=== PATIENT | male | born 1965 | race Caucasian/White ===

== ENCOUNTER → 2017-12-25 15:09 | Outpatient (CLI) | payer OTHER, SELFPAY ==
[2017-12-25 17:36] LABS: Absolute Lymphocyte Count 1.68 X10^3/ul (0.83-4.51); Absolute Neutrophil Count 0.5 X10^3/uL (2.0-7.7); Basophil# 0.02 X10^3/uL; Basophil% 0.7 % (0-1); Eosinophil# 0.02 X10^3/uL; Eosinophils% 0.7 % (0-5); Hematocrit 40.1 % (40-54); Hemoglobin 13.2 g/dl (13.0-16.5); Lymphocyte # 1.68 X10^3/ul (4.0); Lymphocyte % 57.5 % (19-41); Mean Corp Hgb Conc 32.9 g/gl (32-36); Mean Corpuscular Volume 88.1 fL (80-94); Mean Platelet Vol. 8.7 fl (6.2-12.0); Monocyte# 0.71 X10^3/uL; Monocyte% 24.3 % (0-10); Neutrophil # 0.49 X10^3/uL (2.7-7.7); Neutrophil % 16.8 % (47-70); Platelet Count 199 K/mm3 (150-450); RBC Distribution Width CV 14.5 % (11.6-14.6); RBC Distribution Width SD 46.7 fl (35.1-43.9); Red Blood Count 4.55 M/mm3 (4.6-6.2); White Blood Count 2.9 K/mm3 (4.4-11.0)
[2017-12-25 17:46] LABS: ALB/GLOB Ratio 0.7 RATIO (0.9-2.4); AST(SGOT) 20 U/L (15-37); Alanine Aminotransfer ALT/SGPT 26 U/L (16-61); Albumin, Serum 3.7 g/dL (3.2-5.0); Alkaline Phosphatase 58 U/L (45-117); Anion Gap 11 (5-15); BUN 21 mg/dL (7-18); Calcium,Total 8.7 mg/dL (8.5-10.1); Chloride 104 mmol/L (98-107); EST Glomerular Filtration Rate 84 mL/min (>60); Est Glom Filt Rate - Afr Amer 102 mL/min (>60); Glucose 95 mg/dL (74-106); Protein, Total 8.7 g/dL (6.4-8.2); Sodium Level 141 mmol/L (136-145)
[2017-12-25 17:47] LABS: Differential Indicated SCAN CRITERIA MET; POSITIVE COUNT NO; POSITIVE DIFFERENTIAL YES; POSITIVE MORPHOLOGY NO
[2017-12-25 18:20] LABS: Red Cell Morphology NORM C+C NORMAL (NORM C&C)
== END ==
PROVIDERS: Visit Provider Family Medicine
DX: Z01.818 Encounter for other preprocedural examination (principal)
CPT/HCPCS: 36415; 80053; 85025

== ENCOUNTER 2018-01-04 05:48 | Day surgery (SDC) | payer OTHER, SELFPAY ==
[2018-01-04] VITALS (7 sets, daily range): BP systolic 113–133; BP diastolic 81–89; PULSE 72–79; RESP 16–18; TEMP 36.7–37.1; O2SAT 97–100; BMI 23.8
[2018-01-04] MEDS: Cefazolin 2 GM in 0.9% Normal Saline 100 ML IV (07:29)
--- NOTE | 2018-01-04 07:30 | RAD_ITS ---
STUDY: X-RAY - RIGHT FOOT CLINICAL: Male, 52 years old. Arthroplasty with correction of the fifth and merchant toe. TECHNIQUE: 3 cone-down view(s) of the foot were obtained intraoperatively.. COMPARISON: None. FINDINGS: The patient is status post resection of the distal portion of the proximal phalanx and middle phalanx of the fifth toe. Postoperative soft tissue changes. RAD/Foot 2 Views IMPRESSION: Resection of the distal portion of the proximal phalanx as well as minimal findings of the fifth toe. Postoperative soft tissue changes. Electronically Signed: Vasyl Chappell MD at 9:58 EDT Tel [phone], Service support ,
--- NOTE | 2018-01-04 07:30 | BON_PTH ---
PATIENT: MARVA LUU [place] [facility] [facility] [place][id number] AGE/SX: 52/M ROOM: RE01/04/[address]: Dr. Murphy Gorman DPM : 1965 BED: DIS: 01/04/2018 SPEC #: [id number] RECD: 01/04/18 08:16 STATUS: LAVELL JACKSON #: [id number] MARTIN: 01/04/18 07:[address]: Murphy Gorman DEPT: SURGICAL PATHOLOGY RECD BY: Alon Sheehan ENTERED: 01/04/18 10:50 SP TYPE: Bone OTHR DR: No Primary Care Phys Tissues: Bone of foot, NOS Procedures: Decalcification bone/plaque Surgery Specimen Level III HEADER OPERATION: Right foot arthroplasty, correction fifth hammertoe and excision PRE-OP DIAGNOSIS: Right fifth hammertoe, rheumatoid arthritis TISSUE SUBMITTED: Rheumatoid nodule and bone - right fifth toe MICROSCOPIC DIAGNOSIS Rheumatoid nodule and bone, right fifth toe: A piece of fibroconnective tissue with changes consistent with rheumatoid nodule and reactive changes. Pieces of bone with reactive changes, clinically hammertoe. NOHEMI:bebeto 01/09/18 MICROSCOPIC DESCRIPTION Slides are reviewed. GROSS DESCRIPTION Received in fixative is one container labeled with the patient's name and designated rheumatoid nodule and bone right fifth toe. The specimen consists of a piece of phillips soft tissue measuring 1.2 x 0.5 x 0.5 cm. This piece is bisected. Also present in the container are two pieces of bone measuring in aggregate 1.3 x 1 x 0.5 cm. The entire specimen is submitted in two cassettes as follows: 1 - soft tissue, 2 - bone after decalcification. / NOHEMI:bebeto 01/04/18 TC:5 [facility]: [id number], [id number]
[2018-01-04] MEDS: Bupivacaine Mpf 0.5% 30 ML VIAL (07:45)
--- NOTE | 2018-01-04 08:21 | DCINST_ITS ---
Discharge Diet: Light diet - advance as tolerated Discharge Activity: May Not Drive Weight Bearing Status: Partial weight bearing - Limit weightbearing right foot Keep extremity elevated above heart level: Right Leg - Keep right foot elevated as much as possible Call your doctor if your incision/area has: Continuous Slow Oozing, Increased Redness, Foul Smelling Discharge Call your doctor if you observe: Fever of 101 or Higher, Coldness, Increased Pain, Shortness of breath, Chest pain, Increased palpitations (irregular heartbeat), Calf discomfort, Uncontrolled pain Cleanse incision/area with: Do not get Incision Wet, Keep Dressing Clean & Dry Allergies/Adverse Reactions: Allergies No Known Allergies Allergy (Verified 12/28/17 14:30) Medications to take at Discharge Hydrocodone/Acetaminophen [Vicodin 5-300 mg Tablet] 1 tab PO Q6H PRN PRN 5 Days #20 tab 01/04/18 The following prescriptions were given: Hydrocodone/Acetaminophen [Vicodin 5-300 mg Tablet] 1 tab PO Q6H PRN PRN 5 Days #20 tab PRN Reason: Pain Primary Care Physician: Care Physician,No Primary [Primary Care Provider] - Test Results: Test results from this visit will be discussed in further detail at your follow- up appointment, if applicable. Please Follow Up With: Murphy Gorman DPM When: within 1 week, sooner if needed
--- NOTE | 2018-01-04 08:26 | OP.PCM_ITS ---
Report of Operation Date of Procedure: 01/04/18 Pre-Operative Diagnosis: Right 5th digit hammer toe and rheumatoid nodule Post-Operative Diagnosis: Same Surgery/Procedure Performed:: Arthroplasty right 5th toe with removal of rheumatoid nodule Description of Surgical Findings:: contracted right 5th toe with dorsal rheumatoid nodule steam cleaner: yes - Dr. Ifeoma Walker, and Dr. Ady Farrell Type of Anesthesia:: Local MAC Specimen's removed: Bone and removed rheumatoid nodule from the right 5th toe sent to pathology Estimated Blood Loss (mL): <1mL Description of Procedure: Indications: This is a 52 year old gentleman with chronic pain to the right 5th toe secondary to hammer toe with dorsal rheumatoid nodule despite extensive conservative/nonsurgical care. He has elected to proceed with arthroplasty of the 5th digit with excision of rheumatoid nodule on the right foot. This was discussed with him in great detail, reviewed the possible benefits vs risks and possible complications. Reviewed goals and expectations. Reviewed typical healing time / post operative course. Reviewed alternative options. He expressed understanding and agreement. The consent forms were reviewed with him in detail, and he freely signed them. No guarantees were given nor implied. All of his questions were answered. Operative Procedure: The patient was brought back into the operating room and was placed on the operating room table in the supine position. He was carefully secured to the operating room table with a safety belt around his waist. A time out was performed and the patient was properly identified and the surgical plan was confirmed. The patient received 2 grams of IV Ancef for antibiotic prophylaxis. A well padded pneumatic tourniquet was applied around the right ankle. The patient did receive MAC anesthesia per the anesthesiologist, and 10mL of 0.5% Bupivacaine plain was given as a regional infiltrative nerve block around the 5th ray surgical site after the overlying skin was cleansed with 70% isopropyl alcohol. The right foot was scrubbed, prepped, draped in the usual aseptic fashion. The right foot was elevated for 3 minutes and the right ankle pneumatic tourniquet was inflated to 250mmHg. Attention was directed to the right 5th toe which was noted to be significantly contracted consistent with a hammer toe deformity, there was also noted to be a rheumatoid nodule to the dorsal aspect of the proximal interphalangeal joint (PIPJ). Two semi-elliptical (going from distal medial to proximal lateral) converging skin incisions were made around the dorsal aspect of the 5th toe PIPJ. The skin within the incisions was excised. The rheumatoid nodule was visulized, it was yellow and nodular, it was carefully dissected out using a 15 scalpel blade. The extensor digitorum longus tendon was visualized and incised transversely with a 15 blade. The PIPJ joint capsule was incised with a 15 blade, also the collateral ligaments of the PIPJ were released using a 15 blade. The extensor tendon was reflected off of the head of the proximal phalanx. The head of the proximal phalanx was resected. The joint capsule and extensor digitorum longus tendon was reapproximated using 4-0 Vicryl, the skin was reapproximated using 3-0 Nylon. Proper resection of the head of the proximal phalanx was confirmed using intra operative fluoroscopy , images were saved and placed in patient's chart. The 5th toe was in rectus position. All vital structure, including all vital neurovascular structures were properly identified and protected as necessary throughout the procedure. The pneumatic tourniquet was deflated and there was immediate return of warmth and perfusion to the foot and all five toes. Pedal pulses were intact and CFT was less than 3 seconds to all toes with normal temperature gradient present. Total tourniquet time was 27 minutes. A dressing was applied which consisted of Betadine soaked adaptic, 4x4 gauze, kerlix and kelly dressing to the right foot. The patient tolerated the above operative procedure well at the anesthesia well with no complications. The patient was transported to the recovery room with vital signs stable and in good condition. Post operative orders were placed. Post operative instructions were reviewed with him and his mother who was with him. Partial weightbearing to right foot with surgical shoe. A surgical shoe was fitted and dispensed. Keep right foot elevated for at least 50 minutes of every hour, keep dressing clean, dry and intact. Prescription for Vicodin 5mg/ 300mg was prescribed: 1 tabs PO q 6 hours PRN pain for pain control. Grafts/Implants Used: None - Complications None
== END 2018-01-04 09:42 | disposition home or self-care (01) ==
LOC: SDC 05:49 → AC 05:50
PROVIDERS: Visit Provider Podiatrist
PROC: (CPT 28285; principal; 2018-01-04 07:15)
DX: M20.41 Other hammer toe(s) (acquired), right foot (principal); M06.371 Rheumatoid nodule, right ankle and foot; Z87.891 Personal history of nicotine dependence
CPT/HCPCS: 28090; 28285; 73620; 76000; 88304; 88305; 88311; J7120; J2405

== ENCOUNTER → 2018-03-12 12:37 | Outpatient (CLI) | payer OTHER, SELFPAY ==
[2018-03-12 12:59] LABS: Erythrocyte Sedimentation Rate 14 mm/hr (0-20)
[2018-03-12 13:15] LABS: CRP < 2.90 mg/L (0.0-3.0)
--- OUTSIDE RECORDS SUMMARY | 2018-04-24 05:13 | XMS RPT_ITS ---
:1965 Author Organization OHIP Support Name Relationship Address Phone Goehring, Angeles Unavailable [address] + [address] [place] [id number] Gottwald, Judy Unavailable [address] + [place] [address] [facility] Unavailable [address] + [place] [address] Goehring, Angeles Unavailable [address] + [address] [place] [id number] Gottwald, Judy Unavailable [address] + [place] [address] [facility] Un[address] + [place] [address] GOEHRING, ANGELES Unavailable [address] + [address] [place] [address] GOTTWALD, JUDY Unavailable [address] + [place] [address] [facility] Unavailable [address] + [place] [address] Goehring, Angeles Unavailable [address] + [address] [place] [address] Gottwald, Judy Unavailable [address] + [place] [address] [facility] Unavailable [address] + [place] [address] Goehring, Angeles Unavailable [address] + [address] [place] [address] [place] [address] Gottwald, Judy Unavailable [address] + [place] [address] [facility] Unavailable [address] + [place] [address] Care Team Providers Name Role Phone Gareth Crowley Employee Attending Unavailable Murphy Gorman Attending Unavailable Primay Care Physicia, No Primary Care Unavailable Murphy Gorman Referring Unavailable Malissa Dickey Attending Unavailable Gareth Crowley Employee Attending Unavailable MALISSA MARTINEZ Attending Unavailable Primay Care Physicia, No Primary Care Unavailable PROBLEMS PROBLEMS DATE TYPE CONDITION / CODE ATTENDING STATUS SOURCE 03/12/2018 Unknown M05.79 - MALISSA MARTINEZ Active [facility] arthritis with Hospital rheumatoid factor Repository of multiple sites without organ or systems involvement / M05.79(ICD-10) 01/04/2018 Unknown M20.41 - Other [facility], Active [facility] hammer toe(s) [facility] (acquired), [facility] foot / Repository M20.41(ICD-10) PROCEDURES PROCEDURES No Procedure Records FoundRESULTS RESULTS ERYTHROCYTE SED RATE Collected: 03/12/2018 Status: F Source: [place] 7:50 AM [facility] TYPE CODE TESTS RESULT OUT OF RANGE REFERENCE UNITS LAB L102.0000 0-20 mm/hr Normal SED RATE 14 Performed By: #### L101.9900 #### [facility] [place], [address] CBC W/DIFF, AUTOMATED Collected: 03/12/2018 Status: C Source: [place] 7:50 AM [facility] TYPE CODE TESTS RESULT OUT OF RANGE REFERENCE UNITS LAB L100.1000 4.4-11.0 K/mm3 Low WBC 2.9 LAB L100.1200 4.6-6.2 M/mm3 Normal RBC 4.79 LAB L100.1300 13.0-16.5 g/dl Normal HGB 14.5 LAB L100.1400 40-54 % Normal HCT 42.1 LAB L100.1500 80-94 fL Normal MCV 87.9 LAB L100.1600 27.0-32.0 pg Normal MCH 30.3 LAB L100.1700 32-36 g/gl Normal MCHC 34.4 LAB L100.1810 11.6-14.6 % Normal RDW CV 13.5 LAB L100.1820 35.1-43.9 fl Normal RDW SD 43.6 LAB L100.1900 150-450 K/mm3 Normal PLT 190 LAB L100.2000 6.2-12.0 fl Normal MPV 8.6 LAB L100.2100 47-70 % Low NEUT% 15.1 LAB L100.2200 19-41 % High LY% 65.4 LAB L100.2300 0-10 % High MONO% 16.1 LAB L100.2400 0-5 % Normal EO% 3.1 LAB L100.2500 0-1 % Normal BASO% 0.3 LAB L100.2550 0.0-0.9 % Normal IM GRAN % 0.000 Result Comment: IG% - Immature Granulocytes (promyelocytes, myelocytes and metamyelocytes) > 1% indicates that a LEFT SHIFT is Present. LAB L100.2620 2.0-7.7 X10 3/uL Low Absolute Neut 0.4 LAB L100.2720 0.83-4.51 X10 3/ul Normal Absolute Lymph 1.91 LAB L100.4500 Normal SMEAR COMMENT SCANNED Result Comment: LYMPHOCYTOSIS NOTED. AMENDED REPORT 03/12/18 1313 SMEAR COMMENT previously reported as: SCANNED Performed By: #### L100.0100 #### [facility] [place] [place], [place], [id number] CRP Collected: 03/12/2018 Status: F Source: [place] 7:50 AM [facility] TYPE CODE TESTS RESULT OUT OF RANGE REFERENCE UNITS LAB L501.6710 0.0-3.0 mg/L Normal < 2.90 C-REACTIVE PROT Result Comment: C-Reactive Protein (CRP) provides useful information for the diagnosis, therapy and monitoring of inflammatory processes and associated diseases. For the evaluation of Relative Risk for Cardiovascular Disease, a High Sensitivity CRP (HSCRP) should be ordered. Performed By: #### L501.6710 #### [facility] [address] [place], [place], [id number] COMPREHENSIVE METABOLIC Collected: 03/12/2018 Status: F Source: [facility] 7:50 AM [facility] TYPE CODE TESTS RESULT OUT OF RANGE REFERENCE UNITS LAB L501.0100 74-106 mg/dL Normal GLU 84 Result Comment: Please note revised GLUCOSE reference range effective 2017. LAB L501.1000 7-18 mg/dL Normal BUN 14 LAB L501.1100 0.70-1.30 mg/dL Normal CREAT,SERUM 0.83 Result Comment: The validity of the calculated GFR AND GFRAA in patients over 70 years has not been determined. Clinical correlation is essential. LAB L501.1110 >60 mL/min Normal EST GFR 104 Result Comment: Non- GFR Calc LAB L501.1115 >60 mL/min Normal EST GFR - AA 126 Result Comment: GFR Calc LAB L501.1300 10-20 RATIO Normal BUN/CRE 16.8 LAB L501.1500 6.4-8.2 g/dL High T PROT 8.5 LAB L501.1800 3.2-5.0 g/dL Normal ALB 3.7 LAB L501.1950 2.2-4.2 g/dL High GLOB 4.8 LAB L501.2000 0.9-2.4 RATIO Low A/G 0.8 LAB L501.2200 8.5-10.1 mg/dL CA Normal 8.9 LAB L501.4100 15-37 U/L Normal AST 24 LAB L501.4305 45-117 U/L Normal ALK P 57 LAB L501.4405 16-61 U/L Normal ALT 24 LAB L501.4600 0.20-1.00 mg/dL T Normal BILI 0.80 LAB L501.5300 136-145 mmol/L NA Normal 136 LAB L501.5600 3.5-5.1 mmol/L K Normal 4.2 LAB L501.5900 98-107 mmol/L CL Normal 99 LAB L501.6100 21.0-32.0 mmol/L Normal CO2 28.0 LAB L501.6200 5-15 Normal GAP 9 Performed By: #### L500.4050, L500.4100, L501.9910 #### [facility] [address] [place], [address] LIPID PROFILE Collected: 03/12/2018 Status: F Source: [facility] 7:50 AM [facility] TYPE CODE TESTS RESULT OUT OF RANGE REFERENCE UNITS LAB L501.4900 200 mg/dL Normal CHOL 177 Result Comment: <200 mg/dL Desirable 200-240 mg/dL Borderline >240 mg/dL High Risk LAB L501.5000 mg/dL Normal TRIG 84 Result Comment: The drugs N-Acetylcysteine and Metamizole may falsely depress this assay. Serum Triglycerides Reference Interval Normal <150 mg/dL Borderline high 150 - 199 mg/dL High 200 - 499 mg/dL Very High > or = 500 mg/dL LAB L501.6400 mg/dL Normal HDL 61 Result Comment: The drugs N-Acetylcysteine and Metamizole may falsely depress this assay. Reference Range HDL <40 mg/dL Low HDL Cholesterol HDL >or= 60 mg/dL High HDL Cholesterol LAB L501.6500 0-130 mg/dL Normal LDL 99 LAB L501.6600 5-40 mg/dL Normal VLDL 17 Performed By: #### L500.4050, L500.4100, L501.9910 #### [facility] [address] [facility] [place], [address] PSA,TOTAL - ANNUAL Collected: 03/12/2018 Status: F Source: [employer] 7:50 AM [facility] TYPE CODE TESTS RESULT OUT OF RANGE REFERENCE UNITS LAB L501.9910 0.00-4.00 ng/mL Normal PSA,TOT 0.59 SCREEN Result Comment: This test was performed using the TPSA assay method for the [employer] chemistry system. Values obtained with different assay methods cannot be used interchangably. When changing PSA assays in the course of monitoring a patient, additional sequential testing should be carried out to confirm baseline values. Performed By: #### L500.4050, L500.4100, L501.9910 #### [facility] [address] [facility], [address] FOLLOW UP (RHEUMATOLOGY) Observed: 03/04/2018 Status: UNK Source: [facility] 11:22 AM [facility] Chief Complaint RA follow up. History of Present Illness Interval Events: had rheumatoid nodule removed from his foot and was off work for 6 weeks. Notes that fingers are locking more in R hand--thinks it may be due to his inactivity. Symptoms: Systemically the patient has positive rheumatoid factor testing. Medications: the patient is adherent with his medication regimen. Additional History: Dx in 2006. Failed MTX and humira (loss of efficacy). Review of Systems Constitutional: no fever, no chills, not feeling poorly, not feeling tired, no recent weight gain and no recent weight loss. ENT: no earache, no hearing loss, no nosebleeds, no nasal discharge, no sore throat and no hoarseness. Cardiovascular: the heart rate was not slow, the heart rate was not fast, no chest pain, no palpitations, no intermittent leg claudication and no lower extremity edema. Respiratory: no cough, not coughing up sputum and no wheezing that is consistent with asthma. Gastrointestinal: no abdominal pain, no constipation, no melena, no nausea, no diarrhea, no vomiting and no blood in stools. Musculoskeletal: joint swelling and joint stiffness, but no arthralgias, no myalgias, no back pain, no limb pain and no limb swelling. Integumentary: no rashes, no skin lesions, no itching, no skin wound and no dry skin. Neurological: no headache, no confusion, no numbness, no dizziness, no tingling and no fainting. 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) Trigger little finger of right hand (727.03) (M65.351) Past Medical History History of Adalimumab (Humira) long-term use (V58.69) (Z79.899) History of Cataracts, bilateral (366.9) (H26.9) Surgical History History of Appendectomy History of Foot surgery Family History Family history of No significant active problems Family history of No significant active problems Family history of rheumatoid arthritis (V17.7) (Z82.61) Social History Alcohol use (V49.89) (Z78.9) Born in [place] Daily caffeine consumption, 2-3 servings a day Former smoker (V15.82) (Z87.891) Former tobacco use (V15.82) (Z87.891) from significant other (V61.03) (Z63.5) Allergies No Known Drug Allergies Updated By: Sabrina Rodas; 01/29/2017 1:22:19 PM Current Meds Enbrel 50 MG/ML Subcutaneous Solution Prefilled Syringe; INJECT 50 MG Weekly; Therapy: 30Apr2017 to (Last Rx:14May2017) Requested for: 14May2017 Ordered Rx By: Juana Black; Dispense: 0 Days ; #:3 X 0.98 ML Syringe (4 Syringes); Refill: 3;For: Rheumatoid arthritis with rheumatoid factor of multiple sites without organ or systems involvement; KIRTI = N; [facility]; Last Updated By: Lisbet Bird; 05/14/2017 1:49:42 PM PredniSONE 10 MG Oral Tablet; take 1 tablet by mouth daily as directed; Therapy: 30Jul2017 to (Evaluate:[id number]) Requested for: 30Jul2017; Last Rx:30Jul2017 Ordered Rx By: Juana Black; Dispense: 90 Days ; #:100 Tablet; Refill: 3;For: Rheumatoid arthritis with rheumatoid factor of multiple sites without organ or systems involvement; KIRTI = N; Verified Transmiss ion to [facility]; Last Updated By: Lisbet Bird; 07/30/2017 8:34:58 AM Vitals Vital Signs Recorded: 04Mar2018 08:21AM Dhwrfwnoqqr96.3 F, Oral Heart Rate75 Tvcoidvo019, LUE, Sitting Mypylcxtu21, LUE, Sitting Blood Pressure Cuff SizeAdult Zdrbim117 lb BMI Pgydxjojvp15.8 BSA Calculated2.1 O2 Inoimakdet89 Physical Exam Constitutional General appearance: Alert and in no acute distress. Ears, Nose, Mouth, and Throat Hearing: Normal. Neck Neck Exam: Appearance of the neck was normal. No neck masses observed. Pulmonary Respiratory assessment: No respiratory distress, normal respiratory rhythm and effort. Cardiovascular Exam for edema: No peripheral edema. Musculoskeletal Examination of gait: Normal. Inspection of digits and nails: No clubbing or cyanosis of the fingernails. Inspection/palpation of joints, bones, and muscles: Abnormal. (swelling of MCP joints. +thickened tendon of 5th R finger over palmar surface. +extensive rheumatoid nodules. Pain with ROM of shoulders. Knees with mild swelling. ). Appearance - no erythema, no ecchymosis, no amputations, no deformity, no asymmetry, no contractures and normal spinal curvature. Palpation - no increased warmth, no masses, no click and no crepitus. Range of Motion: Normal movement of all extremities. Stability: Normal. Muscle strength/tone: Normal. Skin Skin inspection: Normal skin color and pigmentation, normal skin turgor and no visible rash. Neurologic Coordination: Normal. Psychiatric Judgment and insight: Intact. Orientation: Oriented to person, place, and time. Recent and remote memory: Normal. Mood and affect: Normal. Diagnoses/Problems Encounter for preventive health examination (V70.0) (Z00.00) Rheumatoid arthritis with rheumatoid factor of multiple sites without organ or systems involvement (714.0) (M05.79) Rheumatoid nodules (714.0) (M06.30) On etanercept therapy (V58.69) (Z79.899) Orders Albumin, Serum; Specimen Source:Blood (BLD); Status:Active; Requested for:02Jul2018; Perform:Lab Services - Lab To Draw (Blood Test); Due:30Sep2018;Ordered; For:Rheumatoid arthritis with rheumatoid factor of multiple sites without organ or systems involvement; Ordered By:Juana Black; ALT - Alanine Aminotransferase, Serum; Specimen Source:Blood (BLD); Status:Active; Requested for:02Jul2018; Perform:Lab Services - Lab To Draw (Blood Test); Due:30Sep2018;Ordered; For:Rheumatoid arthritis with rheumatoid factor of multiple sites without organ or systems involvement; Ordered By:Juana Black; AST; Specimen Source:Blood (BLD); Status:Active; Requested for:02Jul2018; Perform:Lab Services - Lab To Draw (Blood Test); Due:30Sep2018;Ordered; For:Rheumatoid arthritis with rheumatoid factor of multiple sites without organ or systems involvement; Ordered By:Juana Black; Blood Urea Nitrogen, Serum; Specimen Source:Blood (BLD); Status:Active; Requested for:02Jul2018; Perform:Lab Services - Lab To Draw (Blood Test); Due:30Sep2018;Ordered; For:Rheumatoid arthritis with rheumatoid factor of multiple sites without organ or systems involvement; Ordered By:Juana Black; C Reactive Protein, Serum; Specimen Source:Blood (BLD); Status:Active; Requested for:02Jul2018; Perform:Lab Services - Lab To Draw (Blood Test); Due:30Sep2018;Ordered; For:Rheumatoid arthritis with rheumatoid factor of multiple sites without organ or systems involvement; Ordered By:Juana Black; Complete Blood Count + Differential; Specimen Source:Blood (BLD); Status:Active; Requested for:02Jul2018; Perform:Lab Services - Lab To Draw (Blood Test); Due:30Sep2018;Ordered; For:Rheumatoid arthritis with rheumatoid factor of multiple sites without organ or systems involvement; Ordered By:Juana Black; Creatinine, Serum; Specimen Source:Blood (BLD); Status:Active; Requested for:02Jul2018; Perform:Lab Services - Lab To Draw (Blood Test); Due:30Sep2018;Ordered; For:Rheumatoid arthritis with rheumatoid factor of multiple sites without organ or systems involvement; Ordered By:Juana Black; Sedimentation Rate, Erythrocyte; Specimen Source:Blood (BLD); Status:Active; Requested for:02Jul2018; Perform:Lab Services - Lab To Draw (Blood Test); Due:30Sep2018;Ordered; For:Rheumatoid arthritis with rheumatoid factor of multiple sites without organ or systems involvement; Ordered By:Juana Black; Provider Impressions MARVA CUELLAR has RA on high risk immunosuppression currently on enbrel Patient has the following poor prognostic factors requiring aggressive treatment: RF+, extraarticular manifestations, Patient has failed the following meds MTX, humira, Last TB test was Jan 2017 and negative Due to immunosuppression, vaccination is important and is up to date health maintenance: pt is scheduled for colonoscopy (risk factor: age 52) The patient's labs, radiology images and reports, and other tests since previous appointment were obtained, reviewed, and summarized as applicable from the physician portal, electronic medical records [facility] and/or outside sources. Pertinent positive and negative findings were considered in medical decision making. All questions were answered and the patient was counseled regarding the diagnosis, prognosis, risk and benefits of the various treatment options and the importance of compliance with therapy. Patient Discussion/Summary 1. RA, seropositive with nodules. Did have nodule removed from foot recently 2. high risk immunosuppression in the past without signs of increased infection Labs were ordered to assess disease activity and drug toxicity based on lab, may add another agent with the enbrel follow up 4 months Patient Education Homegoing instructions As always, a healthy lifestyle helps chronic diseases. Eat a balanced diet, exercise at least 30 minutes a day/5 days a week and be up to date on screening health exams. Signatures Electronically signed by : Juana Black MD; Mar 04 2018 11:22AM EST (Author) OPERATIVE REPORT Observed: 01/04/2018 Status: F Source: [place] 12:34 PM [facility] Medical Records Department [address] [place] [address] Operative Report 01/04/18 0824 MR#: [id number] Acct: [id number] Name: MARVA CUELLAR Rep #: [id number] : 1965 52 From: Murphy Gorman DPM PCP: Care Physician, No Primary Status: [facility] [place] [facility] [place] of Operation Date of Procedure: 01/04/18 Pre-Operative Diagnosis: Right 5th digit hammer toe and rheumatoid nodule Post-Operative Diagnosis: Same Surgery/Procedure Performed:: Arthroplasty right 5th toe with removal of rheumatoid nodule Description of Surgical Findings:: contracted right 5th toe with dorsal rheumatoid nodule service administrator: yes - Dr. Ifeoma Walker, and Dr. Ady Farrell Type of Anesthesia:: Local MAC Specimen's removed: Bone and removed rheumatoid nodule from the right 5th toe sent to pathology Estimated Blood Loss (mL): <1mL Description of Procedure: Indications: This is a 52 year old gentleman with chronic pain to the right 5th toe secondary to hammer toe with dorsal rheumatoid nodule despite extensive conservative/nonsurgical care. He has elected to proceed with arthroplasty of the 5th digit with excision of rheumatoid nodule on the right foot. This was discussed with him in great detail, reviewed the possible benefits vs risks and possible complications. Reviewed goals and expectations. Reviewed typical healing time / post operative course. Reviewed alternative options. He expressed understanding and agreement. The consent forms were reviewed with him in detail, and he freely signed them. No guarantees were given nor implied. All of his questions were answered. Operative Procedure: The patient was brought back into the operating room and was placed on the operating room table in the supine position. He was carefully secured to the operating room table with a safety belt around his waist. A time out was performed and the patient was properly identified and the surgical plan was confirmed. The patient received 2 grams of IV Ancef for antibiotic prophylaxis. A well padded pneumatic tourniquet was applied around the right ankle. The patient did receive MAC anesthesia per the anesthesiologist, and 10mL of 0.5% Bupivacaine plain was given as a regional infiltrative nerve block around the 5th ray surgical site after the overlying skin was cleansed with 70% isopropyl alcohol. The right foot was scrubbed, prepped, draped in the usual aseptic fashion. The right foot was elevated for 3 minutes and the right ankle pneumatic tourniquet was inflated to 250mmHg. Attention was directed to the right 5th toe which was noted to be significantly contracted consistent with a hammer toe deformity, there was also noted to be a rheumatoid nodule to the dorsal aspect of the proximal interphalangeal joint (PIPJ). Two semi-elliptical (going from distal medial to proximal lateral) converging skin incisions were made around the dorsal aspect of the 5th toe PIPJ. The skin within the incisions was excised. The rheumatoid nodule was visulized, it was yellow and nodular, it was carefully dissected out using a 15 scalpel blade. The extensor digitorum longus tendon was visualized and incised transversely with a 15 blade. The PIPJ joint capsule was incised with a 15 blade, also the collateral ligaments of the PIPJ were released using a 15 blade. The extensor tendon was reflected off of the head of the proximal phalanx. The head of the proximal phalanx was resected. The joint capsule and extensor digitorum longus tendon was reapproximated using 4-0 Vicryl, the skin was reapproximated using 3-0 Nylon. Proper resection of the head of the proximal phalanx was confirmed using intra operative fluoroscopy, images were saved and placed in patient's chart. The 5th toe was in rectus position. All vital structure, including all vital neurovascular structures were properly identified and protected as necessary throughout the procedure. The pneumatic tourniquet was deflated and there was immediate return of warmth and perfusion to the foot and all five toes. Pedal pulses were intact and CFT was less than 3 seconds to all toes with normal temperature gradient present. Total tourniquet time was 27 minutes. A dressing was applied which consisted of Betadine soaked adaptic, 4x4 gauze, kerlix and kelly dressing to the right foot. The patient tolerated the above operative procedure well at the anesthesia well with no complications. The patient was transported to the recovery room with vital signs stable and in good condition. Post operative orders were placed. Post operative instructions were reviewed with him and his mother who was with him. Partial weightbearing to right foot with surgical shoe. A surgical shoe was fitted and dispensed. Keep right foot elevated for at least 50 minutes of every hour, keep dressing clean, dry and intact. Prescription for Vicodin 5mg/300mg was prescribed: 1 tabs PO q 6 hours PRN pain for pain control. Grafts/Implants Used: None - Complications None 01/04/18 1234 <Electronically signed by Murphy Gorman DPM> Date Murphy Gorman DPM CC: No Primary Care Physician; Murphy Gorman DPM Signed DISCHARGE INSTRUCTION Observed: 01/04/2018 Status: F Source: [place] 8:24 AM [facility] Medical Records Department [address] [place] [address] Instructions for Home/Discharge Instructions 01/04/18 0820 MR#: [id number] Acct: [id number] Name: MARVA CUELLAR Rep #: [id number] : 1965 52 From: Murphy Gorman DPM PCP: Care Physician, No Primary Status: [facility] Discharge Diet: Light diet - advance as tolerated Discharge Activity: May Not Drive Weight Bearing Status: Partial weight bearing - Limit weightbearing right foot Keep extremity elevated above heart level: Right Leg - Keep right foot elevated as much as possible Call your doctor if your incision/area has: Continuous Slow Oozing, Increased Redness, Foul Smelling Discharge Call your doctor if you observe: Fever of 101 or Higher, Coldness, Increased Pain, Shortness of breath, Chest pain, Increased palpitations (irregular heartbeat), Calf discomfort, Uncontrolled pain Cleanse incision/area with: Do not get Incision Wet, Keep Dressing Clean AND Dry Allergies/Adverse Reactions: Allergies No Known Allergies Allergy (Verified 12/28/17 14:30) Medications to take at Discharge Hydrocodone/Acetaminophen [Vicodin 5-300 mg Tablet] 1 tab PO Q6H PRN PRN 5 Days #20 tab 01/04/18 The following prescriptions were given: Hydrocodone/Acetaminophen [Vicodin 5-300 mg Tablet] 1 tab PO Q6H PRN PRN 5 Days #20 tab PRN Reason: Pain Primary Care Physician: Care Physician,No Primary [Primary Care Provider] - Test Results: Test results from this visit will be discussed in further detail at your follow-up appointment, if applicable. Please Follow Up With: Murphy Gorman DPM When: within 1 week, sooner if needed 01/04/18823 <Electronically signed by Murphy Gorman DPM> Date Murphy Gorman DPM CC: No Primary Care Physician BONE (FX/NONFRACTURE) Observed: 01/04/2018 Status: F Source: [place] 7:30 AM [facility] [place] [facility] Patient: MARVA CUELLAR : 1965 (52/M) Acct Num: [id number] Phys: Murphy Gorman DPM Unit Num: [id number] Loc: [facility] [place] Specimen: [id number] Received: 01/04/18815 Spec Type: Bone TISSUES 1 TISSUES: Bone of foot, NOS GROSS DESCRIPTION Received in fixative is one container labeled with the patient's name and designated rheumatoid nodule and bone right fifth toe. The specimen consists of a piece of phillips soft tissue measuring 1.2 x 0.5 x 0.5 cm. This piece is bisected. Also present in the container are two pieces of bone measuring in aggregate 1.3 x 1 x 0.5 cm. The entire specimen is submitted in two cassettes as follows: 1 - soft tissue, 2 - bone after decalcification. / SJ:bebeto 01/04/18 TC:5 CPT: 85744, 14880 HEADER OPERATION: Right foot arthroplasty, correction fifth hammertoe and excision PRE-OP DIAGNOSIS: Right fifth hammertoe, rheumatoid arthritis TISSUE SUBMITTED: Rheumatoid nodule and bone - right fifth toe MICROSCOPIC DESCRIPTION Slides are reviewed. MICROSCOPIC DIAGNOSIS Rheumatoid nodule and bone, right fifth toe: A piece of fibroconnective tissue with changes consistent with rheumatoid nodule and reactive changes. Pieces of bone with reactive changes, clinically hammertoe. SJ:bebeto 01/09/18 Signed Alberto Calixto 01/09/18 <signature on file> Performed By: #### PBON #### [facility] [address] [place], [address] FOOT 2 VIEWS Observed: 01/04/2018 Status: F Source: [place] 12:55 AM [facility] Services [address] [place] [address] Foot 2 Views MR#: [id number] Acct: [id number] Name: BELLMARVA Johnny Rep #: [id number] : 1965 M 52 From: Vasyl Chappell MD PCP: Care Physician, No Primary Status: [facility] Study: Foot 2 Views Date of Exam: 01/04/18 Exam# [id number] Ordering Dr: Murphy Gorman DPM STUDY: X-RAY - RIGHT FOOT CLINICAL: Male, 52 years old. Arthroplasty with correction of the fifth and merchant toe. TECHNIQUE: 3 cone-down view(s) of the foot were obtained intraoperatively.. COMPARISON: None. FINDINGS: The patient is status post resection of the distal portion of the proximal phalanx and middle phalanx of the fifth toe. Postoperative soft tissue changes. RAD/Foot 2 Views IMPRESSION: Resection of the distal portion of the proximal phalanx as well as minimal findings of the fifth toe. Postoperative soft tissue changes. Electronically Signed: Vasyl Chappell MD at 9:58 EDT Tel [phone], Service support , CC: No Primary Care Physician; Murphy Gorman DPM Migration Specialist: Signed COMPREHENSIVE METABOLIC Collected: 12/25/2017 Status: F Source: [place] 3:11 PM [facility] Order Comment: Order Date: 12/25/17 Order Info: [id number] - CMP TYPE CODE TESTS RESULT OUT OF RANGE REFERENCE UNITS LAB L501.0100 74-106 mg/dL Normal GLU 95 Result Comment: Please note revised GLUCOSE reference range effective 2017. LAB L501.1000 7-18 mg/dL High BUN 21 LAB L501.1100 0.70-1.30 mg/dL Normal CREAT,SERUM 1.00 Result Comment: The validity of the calculated GFR AND GFRAA in patients over 70 years has not been determined. Clinical correlation is essential. LAB L501.1110 >60 mL/min Normal EST GFR 84 Result Comment: Non- GFR Calc LAB L501.1115 >60 mL/min Normal EST GFR - AA 102 Result Comment: GFR Calc LAB L501.1300 10-20 RATIO High BUN/CRE 21.0 LAB L501.1500 6.4-8.2 g/dL High T PROT 8.7 LAB L501.1800 3.2-5.0 g/dL Normal ALB 3.7 LAB L501.1950 2.2-4.2 g/dL High GLOB 5.0 LAB L501.2000 0.9-2.4 RATIO Low A/G 0.7 LAB L501.2200 8.5-10.1 mg/dL CA Normal 8.7 LAB L501.4100 15-37 U/L Normal AST 20 LAB L501.4305 45-117 U/L Normal ALK P 58 LAB L501.4405 16-61 U/L Normal ALT 26 LAB L501.4600 0.20-1.00 mg/dL T Normal BILI 0.50 LAB L501.5300 136-145 mmol/L NA Normal 141 LAB L501.5600 3.5-5.1 mmol/L K Normal 4.0 LAB L501.5900 98-107 mmol/L CL Normal 104 LAB L501.6100 21.0-32.0 mmol/L Normal CO2 26.0 LAB L501.6200 5-15 Normal GAP 11 Performed By: #### L500.4050, L100.0100 #### [facility] [place], [address] CBC W/DIFF, AUTOMATED Collected: 12/25/2017 Status: F Source: [place] 3:11 PM [facility] Order Comment: Order Date: 12/25/17 Order Info: [id number] - CBCD TYPE CODE TESTS RESULT OUT OF RANGE REFERENCE UNITS LAB L100.1000 4.4-11.0 K/mm3 Low WBC 2.9 LAB L100.1200 4.6-6.2 M/mm3 Low RBC 4.55 LAB L100.1300 13.0-16.5 g/dl Normal HGB 13.2 LAB L100.1400 40-54 % Normal HCT 40.1 LAB L100.1500 80-94 fL Normal MCV 88.1 LAB L100.1600 27.0-32.0 pg Normal MCH 29.0 LAB L100.1700 32-36 g/gl Normal MCHC 32.9 LAB L100.1810 11.6-14.6 % Normal RDW CV 14.5 LAB L100.1820 35.1-43.9 fl High RDW SD 46.7 LAB L100.1900 150-450 K/mm3 Normal PLT 199 LAB L100.2000 6.2-12.0 fl Normal MPV 8.7 LAB L100.2100 47-70 % Low NEUT% 16.8 LAB L100.2200 19-41 % High LY% 57.5 LAB L100.2300 0-10 % High MONO% 24.3 LAB L100.2400 0-5 % Normal EO% 0.7 LAB L100.2500 0-1 % Normal BASO% 0.7 LAB L100.2550 0.0-0.9 % Normal IM GRAN % 0.000 Result Comment: IG% - Immature Granulocytes (promyelocytes, myelocytes and metamyelocytes) > 1% indicates that a LEFT SHIFT is Present. LAB L100.2620 2.0-7.7 X10 3/uL Low Absolute Neut 0.5 LAB L100.2720 0.83-4.51 X10 3/ul Normal Absolute Lymph 1.68 LAB L100.4500 Normal SMEAR COMMENT SEE COMMENT Result Comment: NEUTROPENIA NOTED LAB L100.7000 NORM C AND NORMAL Normal C RED CELL NORM MORPH C+C Performed By: #### L500.4050, L100.0100 #### [facility] [address] [place], [address] COMPREHENSIVE METABOLIC Collected: 11/13/2017 Status: F Source: [place] [facility] 8:50 AM [facility] [place] [facility] TYPE CODE TESTS RESULT OUT OF RANGE REFERENCE UNITS LAB L501.0100 74-106 mg/dL Normal GLU 91 Result Comment: Please note revised GLUCOSE reference range effective 2017. LAB L501.1000 7-18 mg/dL Normal BUN 13 LAB L501.1100 0.70-1.30 mg/dL Normal CREAT,SERUM 0.82 Result Comment: The validity of the calculated GFR AND GFRAA in patients over 70 years has not been determined. Clinical correlation is essential. LAB L501.1110 >60 mL/min Normal EST GFR 106 Result Comment: Non- GFR Calc LAB L501.1115 >60 mL/min Normal EST GFR - AA 129 Result Comment: GFR Calc LAB L501.1300 10-20 RATIO Normal BUN/CRE 16.0 LAB L501.1500 6.4-8.2 g/dL High T PROT 8.8 LAB L501.1800 3.2-5.0 g/dL Normal ALB 3.7 LAB L501.1950 2.2-4.2 g/dL High GLOB 5.1 LAB L501.2000 0.9-2.4 RATIO Low A/G 0.7 LAB L501.2200 8.5-10.1 mg/dL CA Normal 8.8 LAB L501.4100 15-37 U/L Normal AST 34 LAB L501.4305 45-117 U/L Normal ALK P 65 LAB L501.4405 16-61 U/L Normal ALT 42 LAB L501.4600 0.20-1.00 mg/dL T Normal BILI 0.60 LAB L501.5300 136-145 mmol/L NA Normal 139 LAB L501.5600 3.5-5.1 mmol/L K Normal 4.8 LAB L501.5900 98-107 mmol/L CL Normal 100 LAB L501.6100 21.0-32.0 mmol/L Normal CO2 32.0 LAB L501.6200 5-15 Normal GAP 7 Performed By: #### L500.4050, L500.4100, L501.9940 #### [facility] [address] [place], [place], [address] LIPID PROFILE Collected: 11/13/2017 Status: F Source: [place] 8:50 AM [facility] [facility] TYPE CODE TESTS RESULT OUT OF RANGE REFERENCE UNITS LAB L501.4900 200 mg/dL Normal CHOL 175 Result Comment: <200 mg/dL Desirable 200-240 mg/dL Borderline >240 mg/dL High Risk LAB L501.5000 mg/dL Normal TRIG 63 Result Comment: The drugs N-Acetylcysteine and Metamizole may falsely depress this assay. Serum Triglycerides Reference Interval Normal <150 mg/dL Borderline high 150 - 199 mg/dL High 200 - 499 mg/dL Very High > or = 500 mg/dL LAB L501.6400 mg/dL Normal HDL 60 Result Comment: The drugs N-Acetylcysteine and Metamizole may falsely depress this assay. Reference Range HDL <40 mg/dL Low HDL Cholesterol HDL >or= 60 mg/dL High HDL Cholesterol LAB L501.6500 0-130 mg/dL Normal LDL 102 LAB L501.6600 5-40 mg/dL Normal VLDL 13 Performed By: #### L500.4050, L500.4100, L501.9940 #### [facility] [address], [place], [address] PSA,TOTAL- DIAGNOSTIC Collected: 11/13/2017 Status: F Source: [place] 8:50 AM [facility] TYPE CODE TESTS RESULT OUT OF RANGE REFERENCE UNITS LAB L501.9940 0.0-4.0 ng/mL PSA, Normal DIAGNOSTIC 0.64 Result Comment: This test was performed using the TPSA assay method for the [employer] chemistry system. Values obtained with different assay methods cannot be used interchangably. When changing PSA assays in the course of monitoring a patient, additional sequential testing should be carried out to confirm baseline values. Performed By: #### L500.4050, L500.4100, L501.9940 #### [facility] [address] [place], [address] PROGRESS Observed: 11/06/2017 Status: COMPLETED Source: [place] 8:47 AM [facility] RE[facility] HNO ID: [id number] Author: Jamie aDvid Service: (none) Author Type: Physician Type: Progress Notes Filed: 11/06/2017 9:56 AM Note Text: Subjective The patient is here to transition care and for a wellness exam. He was seeing Dalia Burgess CNP. The patient is coming due for a diabetes screen. He is otherwise up to date on his screening and immunizations. He follows with rheumatology for his rheumatoid arthritis. The patient reports he does not watch his diet. He reports he does exercise via walking and is active at work. The patient is a former smoker. He gets his medications from rheumatology. In the past two weeks, the patient denies feeling down, depressed or hopeless. He denies having little interest in doing things. He reports some mild pain in his right wrist and shoulder today. He has no questions or concerns at this time. He has a be well form to be completed for his job. The history is provided by the patient. ALLERGIES No Known Allergies Current Outpatient Prescriptions: ENBREL 50 mg/mL (0.98 mL) injection One injection weekly Disp: Rfl: predniSONE (DELTASONE) 10 mg tablet As needed for flare ups Disp: Rfl: PROPYLENE GLYCOL/PEG 400 (BLINK TEARS LUBRICATING) Eye Drops Use 1 Drop in both eyes three times daily. Disp: Rfl: traMADol (ULTRAM) 50 mg tablet Disp: Rfl: HUMIRA PEN 40 mg/0.8 mL PnKt One injection every other week. Disp: Rfl: No current facility-administered medications for this visit. ACTIVE PROBLEM LIST Neutropenia, Unspecified (Hcc) Proteinuria Hepatitis C Infection Felty's Syndrome (Hcc) Chalazion - Right Eye Meibomitis - Both Eyes Other vitreous opacities - Both Eyes After-Cataract Obscuring Vision Vitreous Floaters of Both Eyes Dry Eye Syndrome Pseudophakia of Both Eyes Social History Marital status: Spouse name: Angeles Goehring Years of education: Number of children: 2 Occupational History Occupation Employer Comment [employer] Social History Main Topics Smoking status: Former Smoker Packs/day: 0.50 Years: 20.00 Types: Cigarettes Quit date: 01/04/2016 Smokeless tobacco: Never Used Comment: Current smoker; Smoking details Type: cigarette; Pattern of use: Every day smoker; Start date: 04/1986; Interested in quitting smoking; Amount: 1-9 cigs/day; Will wean self when ready; Tobacco reviewed with patient 11/09/2015 Alcohol use: Yes 18.0 oz/week Cans of Beer (12oz): 12 per week Comment: Current alcohol user; Type: beer; Has 12 beer//week on average; Patient has not been in alcohol treatment program, reports he is trying to cut back Drug use: No Comment: No reported history Sexual activity: Yes Partners with: Female Other Topics Concern Caffeine Concern Yes Comment:Uses caffeine; Type: coffee, and soda; Amount: moderate (equiv to 1-3 8oz coffee/day) Social History Narrative Lives alone. Feels safe at home. Family History Problem Relation Age of Onset - Fibromyalgia [OTHER] Sister Reviewed past medical and surgical history. BP 128/88 (BP Site: Right Arm, BP Position: Sitting, BP Cuff Size: Regular Adult) Pulse 74 Temp 36.9 ?C (98.5 ?F) Resp 16 Ht 185.4 cm (6' 1) Wt 82 kg (180 lb 12.8 oz) BMI 23.85 kg/m? Review of Systems Constitutional: Negative for fever and weight loss. HENT: Negative for congestion, hearing loss and sore throat. Eyes: Negative for blurred vision. Respiratory: Negative for cough and shortness of breath. Cardiovascular: Negative for chest pain, palpitations and leg swelling. Gastrointestinal: Negative for abdominal pain, constipation, diarrhea, nausea and vomiting. Genitourinary: Negative for dysuria. Dribbling Musculoskeletal: Positive for joint pain (chronic). Negative for falls. Skin: Negative for rash. Neurological: Negative for dizziness, tingling, loss of consciousness, weakness and headaches. Psychiatric/Behavioral: Negative for depression and suicidal ideas. Objective Physical Exam Constitutional: He is oriented to person, place, and time and well-developed, well-nourished, and in no distress. Vital signs are normal. He does not have a sickly appearance. No distress. HENT: Head: Normocephalic and atraumatic. Mouth/Throat: Oropharynx is clear and moist and mucous membranes are normal. Eyes: Conjunctivae are normal. Pupils are equal, round, and reactive to light. Neck: No thyromegaly present. Cardiovascular: Normal rate, regular rhythm and normal heart sounds. No murmur heard. Pulmonary/Chest: Effort normal and breath sounds normal. No respiratory distress. He has no wheezes. Abdominal: Soft. Bowel sounds are normal. He exhibits no distension. There is no tenderness. Musculoskeletal: He exhibits no edema. Neurological: He is alert and oriented to person, place, and time. He displays weakness. 4/5 strength in bilateral upper extremities Skin: Skin is warm and dry. No rash noted. He is not diaphoretic. No erythema. Psychiatric: Mood normal. Nursing note and vitals reviewed. ASSESSMENT/PLAN: 1. Visit for well man health check - ICD9: V70.0, ICD10: Z00.00 (primary diagnosis) - Colon cancer screening reviewed and colonoscopy recommended. Patient agrees and order placed. - Recommended regular aerobic exercise. - Check CMP, fasting lipid panel and PSA - Follow up for annual exam in one year. - LIPID PANEL BASIC - COMP METABOLIC PANEL 2. Screening for prostate cancer - ICD9: V76.44, ICD10: Z12.5 - The patient reports having issues with urinary dribbling. He was supposed to be taking a medication, but he did not want to take it. - PSA/PROSTSPECAG SCRN 3. Screening for cardiovascular condition - ICD9: V81.2, ICD10: Z13.6 - LIPID PANEL BASIC - COMP METABOLIC PANEL 4. Screening for colon cancer - ICD9: V76.51, ICD10: Z12.11 - CONSULT TO GENERAL SURGERY The patient is here to transition care and for a wellness exam. Paperwork completed and provided to the patient. Vitals and exam fairly unremarkable aside from his chronic joint problems. Routine follow up scheduled. He was instructed to call with any concerns or questions before then and he agreed. Return in about 1 year (around 11/06/2018) for annual physical. Jamie David MD CNOV Observed: 11/06/2017 Status: COMPLETED Source: [place] 8:40 AM [facility] REPOSITORY Office Visit (AGINTMLW) MARVA CUELLAR ([id number]) 1965 M Date Time Provider Department 11/06/17 8:40 AM JAMIE DAVID AGINTMLW During your visit today, we recorded the following information about you: Temperature Pulse Respiration Blood pressure 98.5 degrees 74/minute 16/minute 128/88 Weight Height 82 kg 1.854 m Jamie David MD 11/06/2017 9:56 AM Signed Subjective The patient is here to transition care and for a wellness exam. He was seeing Dalia Burgess CNP. The patient is coming due for a diabetes screen. He is otherwise up to date on his screening and immunizations. He follows with rheumatology for his rheumatoid arthritis. The patient reports he does not watch his diet. He reports he does exercise via walking and is active at work. The patient is a former smoker. He gets his medications from rheumatology. In the past two weeks, the patient denies feeling down, depressed or hopeless. He denies having little interest in doing things. He reports some mild pain in his right wrist and shoulder today. He has no questions or concerns at this time. He has a be well form to be completed for his job. The history is provided by the patient. ALLERGIES No Known Allergies Current Outpatient Prescriptions: ENBREL 50 mg/mL (0.98 mL) injection One injection weekly Disp: Rfl: predniSONE (DELTASONE) 10 mg tablet As needed for flare ups Disp: Rfl: PROPYLENE GLYCOL/PEG 400 (BLINK TEARS LUBRICATING) Eye Drops Use 1 Drop in both eyes three times daily. Disp: Rfl: traMADol (ULTRAM) 50 mg tablet Disp: Rfl: HUMIRA PEN 40 mg/0.8 mL PnKt One injection every other week. Disp: Rfl: No current facility-administered medications for this visit. ACTIVE PROBLEM LIST Neutropenia, Unspecified (Hcc) Proteinuria Hepatitis C Infection Felty's Syndrome (Hcc) Chalazion - Right Eye Meibomitis - Both Eyes Other vitreous opacities - Both Eyes After-Cataract Obscuring Vision Vitreous Floaters of Both Eyes Dry Eye Syndrome Pseudophakia of Both Eyes Social History Marital status: Spouse name: Angeles Rice Years of education: Number of children: 2 Occupational History Occupation Employer Comment [employer]* Social History Main Topics Smoking status: Former Smoker Packs/day: 0.50 Years: 20.00 Types: Cigarettes Quit date: 01/04/2016 Smokeless tobacco: Never Used Comment: Current smoker; Smoking details Type: cigarette; Pattern of use: Every day smoker; Start date: 04/1986; Interested in quitting smoking; Amount: 1-9 cigs/day; Will wean self when ready; Tobacco reviewed with patient 11/09/2015 Alcohol use: Yes 18.0 oz/week Cans of Beer (12oz): 12 per week Comment: Current alcohol user; Type: beer; Has 12 beer//week on average; Patient has not been in alcohol treatment program, reports he is trying to cut back Drug use: No Comment: No reported history Sexual activity: Yes Partners with: Female Other Topics Concern Caffeine Concern Yes Comment:Uses caffeine; Type: coffee, and soda; Amount: moderate (equiv to 1-3 8oz coffee/day) Social History Narrative Lives alone. Feels safe at home. Family History Problem Relation Age of Onset - Fibromyalgia [OTHER] Sister Reviewed past medical and surgical history. BP 128/88 (BP Site: Right Arm, BP Position: Sitting, BP Cuff Size: Regular Adult) Pulse 74 Temp 36.9 ?C (98.5 ?F) Resp 16 Ht 185.4 cm (6' 1) Wt 82 kg (180 lb 12.8 oz) BMI 23.85 kg/m? Review of Systems Constitutional: Negative for fever and weight loss. HENT: Negative for congestion, hearing loss and sore throat. Eyes: Negative for blurred vision. Respiratory: Negative for cough and shortness of breath. Cardiovascular: Negative for chest pain, palpitations and leg swelling. Gastrointestinal: Negative for abdominal pain, constipation, diarrhea, nausea and vomiting. Genitourinary: Negative for dysuria. Dribbling Musculoskeletal: Positive for joint pain (chronic). Negative for falls. Skin: Negative for rash. Neurological: Negative for dizziness, tingling, loss of consciousness, weakness and headaches. Psychiatric/Behavioral: Negative for depression and suicidal ideas. Objective Physical Exam Constitutional: He is oriented to person, place, and time and well-developed, well-nourished, and in no distress. Vital signs are normal. He does not have a sickly appearance. No distress. HENT: Head: Normocephalic and atraumatic. Mouth/Throat: Oropharynx is clear and moist and mucous membranes are normal. Eyes: Conjunctivae are normal. Pupils are equal, round, and reactive to light. Neck: No thyromegaly present. Cardiovascular: Normal rate, regular rhythm and normal heart sounds. No murmur heard. Pulmonary/Chest: Effort normal and breath sounds normal. No respiratory distress. He has no wheezes. Abdominal: Soft. Bowel sounds are normal. He exhibits no distension. There is no tenderness. Musculoskeletal: He exhibits no edema. Neurological: He is alert and oriented to person, place, and time. He displays weakness. 4/5 strength in bilateral upper extremities Skin: Skin is warm and dry. No rash noted. He is not diaphoretic. No erythema. Psychiatric: Mood normal. Nursing note and vitals reviewed. ASSESSMENT/PLAN: 1. Visit for well man health check - ICD9: V70.0, ICD10: Z00.00 (primary diagnosis) - Colon cancer screening reviewed and colonoscopy recommended. Patient agrees and order placed. - Recommended regular aerobic exercise. - Check CMP, fasting lipid panel and PSA - Follow up for annual exam in one year. - LIPID PANEL BASIC - COMP METABOLIC PANEL 2. Screening for prostate cancer - ICD9: V76.44, ICD10: Z12.5 - The patient reports having issues with urinary dribbling. He was supposed to be taking a medication, but he did not want to take it. - PSA/PROSTSPECAG SCRN 3. Screening for cardiovascular condition - ICD9: V81.2, ICD10: Z13.6 - LIPID PANEL BASIC - COMP METABOLIC PANEL 4. Screening for colon cancer - ICD9: V76.51, ICD10: Z12.11 - CONSULT TO GENERAL SURGERY The patient is here to transition care and for a wellness exam. Paperwork completed and provided to the patient. Vitals and exam fairly unremarkable aside from his chronic joint problems. Routine follow up scheduled. He was instructed to call with any concerns or questions before then and he agreed. Return in about 1 year (around 11/06/2018) for annual physical. MD Jamie Mobley MD 11/06/2017 8:59 AM Signed Call if any concerns or questions. Referring Provider: SELF [[id number]] Allergies As of Date: 11/06/2017 (No Known Allergies) Date Reviewed: 11/06/2017 Reviewed by: Jamie David - Fully Assessed Reason for Visit: Establish Care [42] Cmt: Well Adult Exam Primary Visit Diagnosis:Visit for well man health check [Z00.00] Other Visit Diagnoses:Screening for prostate cancer [Z12.5] Screening for cardiovascular condition [Z13.6] Screening for colon cancer [Z12.11] Order(s):CONSULT TO GENERAL SURGERY [9011] Order #: [id number]: 1 LIPID PANEL BASIC [SQLIPB] Order #: [id number] FUTURE COMP METABOLIC PANEL [SQCMP] Order #: [id number] FUTURE PSA/PROSTSPECAG SCRN [SQPSAS1] Order #: [id number] FUTURE Prescriptions as of 11/06/2017 Sig: ENBREL 50 MG/ML (0.98 ML) SUB* One injection weekly PREDNISONE 10 MG TABLET As needed for flare ups BLINK TEARS LUBRICATING EYE D* Use 1 Drop in both eyes three* TRAMADOL 50 MG TABLET * HUMIRA PEN 40 MG/0.8 ML SUBCU* One injection every other wee* Problem List As Of Date 11/06/2017 Noted Resolved Neutropenia, Unspecified [D70.9] INVALID FOR* Proteinuria [R80.9] INVALID FOR* Hepatitis C infection [B19.20] INVALID FOR* 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] INVALID FOR* Chalazion - Right Eye [H00.19] INVALID FOR* Meibomitis - Both Eyes [H00.029] INVALID FOR* Other vitreous opacities - Both Eyes [H43.399] INVALID FOR* Lens replaced by other means - Both Eyes [Z96.1]INVALID FOR*05/08/2016 After-cataract obscuring vision [H26.499] INVALID FOR* Vitreous floaters of both eyes [H43.393] INVALID FOR* Dry eye syndrome [H04.129] INVALID FOR* Pseudophakia of both eyes [Z96.1] INVALID FOR* Other instructions from your clinician: Call if any concerns or questions. Level of Service: WELLNESS EXAMS EST 40-64 YRS [87770] Disposition: Return in about 1 year (around 11/06/2018) for annual physical. Follow-up and Disposition History Recorded Encounter Status:Closed by JAMIE DAVID MD on 11/06/17 CNCO Observed: 11/06/2017 Status: COMPLETED Source: [place] 12:00 AM [facility] REPOSITORY Letter Text [address] [address] Dept Dept Jamie David MD [facility] -[address] [place] [phone] - - November 06, 2017 Marva Cuellar [facility] [address] [place] [id number] Dear Mr. Cuellar, You have been referred to Dr. Dick to be evaluated and treated for Colon screening. Please call [phone]. to schedule your appointment. [facility] [facility] affiliated providers will have access to your records. We ask that if you are not seeing a [facility] affiliated provider that you notify our office and provide the name of the provider and your appointment date. We will then verify if your insurance requires a prior authorization and will forward your records in a timely manner. Sincerely, Jamie David M.D. (Signed electronically to expedite mailing) FOLLOW UP (RHEUMATOLOGY) Observed: 11/05/2017 Status: UNK Source: [place] 8:26 AM HOSPITALS REPOSITORY Chief Complaint RA follow up History of Present Illness Interval Events: doing better since last seen. We were unable to get rituxan approved BUT pt feels enbrel is now starting to work. Symptoms: Systemically the patient has positive rheumatoid factor testing. Medications: the patient is adherent with his medication regimen. Additional History: Dx in 2006. Failed MTX and humira (loss of efficacy). Review of Systems Constitutional: no fever, no chills, not feeling poorly, not feeling tired, no recent weight gain and no recent weight loss. ENT: no earache, no hearing loss, no nosebleeds, no nasal discharge, no sore throat and no hoarseness. Cardiovascular: the heart rate was not slow, the heart rate was not fast, no chest pain, no palpitations, no intermittent leg claudication and no lower extremity edema. Respiratory: no cough, not coughing up sputum and no wheezing that is consistent with asthma. Gastrointestinal: no abdominal pain, no constipation, no melena, no nausea, no diarrhea, no vomiting and no blood in stools. Musculoskeletal: joint swelling and joint stiffness, but no arthralgias, no myalgias, no back pain, no limb pain and no limb swelling. Integumentary: no rashes, no skin lesions, no itching, no skin wound and no dry skin. Neurological: no headache, no confusion, no numbness, no dizziness, no tingling and no fainting. 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) Trigger finger, acquired (727.03) (M65.30) Past Medical History History of Adalimumab (Humira) long-term use (V58.69) (Z79.899) History of Cataracts, bilateral (366.9) (H26.9) Surgical History History of Appendectomy Family History Family history of No significant active problems Family history of No significant active problems Family history of rheumatoid arthritis (V17.7) (Z82.61) Social History Alcohol use (V49.89) (Z78.9) Born in [place] Daily caffeine consumption, 2-3 servings a day Former smoker (V15.82) (Z87.891) Former tobacco use (V15.82) (Z87.891) from significant other (V61.03) (Z63.5) Allergies No Known Drug Allergies Updated By: Sabrina Rodas; 01/29/2017 1:22:19 PM Current Meds Enbrel 50 MG/ML Subcutaneous Solution Prefilled Syringe; INJECT 50 MG Weekly; Therapy: 30Apr2017 to (Last Rx:14May2017) Requested for: 14May2017 Ordered Rx By: Juana Black; Dispense: 0 Days ; #:3 X 0.98 ML Syringe (4 Syringes); Refill: 3;For: Rheumatoid arthritis with rheumatoid factor of multiple sites without organ or systems involvement; KIRTI = N; Verified Transmission to [facility]; Last Updated By: Lisbet Bird; 05/14/2017 1:49:42 PM PredniSONE 10 MG Oral Tablet; take 1 tablet by mouth daily as directed; Therapy: 30Jul2017 to (Evaluate:[id number]) Requested for: 30Jul2017; Last Rx:30Jul2017 Ordered Rx By: Juana Black; Dispense: 90 Days ; #:100 Tablet; Refill: 3;For: Rheumatoid arthritis with rheumatoid factor of multiple sites without organ or systems involvement; KIRTI = N; Verified Transmiss ion to [facility]; Last Updated By: Lisbet Bird; 07/30/2017 8:34:58 AM Vitals Vital Signs Recorded: 50Esy3785 08:11AM Qcyhrqzmdym73.4 F, Oral Heart Rate67 Xxlpgufg609, LUE, Sitting Jyjuntepp84, LUE, Sitting Blood Pressure Cuff SizeAdult Oqgnvj119 lb 8 oz BMI Lhjivvtukn41.81 BSA Calculated2.06 O2 Ckeilajgne63 Physical Exam Constitutional General appearance: Alert and in no acute distress. Ears, Nose, Mouth, and Throat Hearing: Normal. Neck Neck Exam: Appearance of the neck was normal. No neck masses observed. Pulmonary Respiratory assessment: No respiratory distress, normal respiratory rhythm and effort. Cardiovascular Exam for edema: No peripheral edema. Musculoskeletal Examination of gait: Normal. Inspection of digits and nails: No clubbing or cyanosis of the fingernails. Inspection/palpation of joints, bones, and muscles: Abnormal. (swelling of MCP joints. +thickened tendon of 5th R finger over palmar surface. +extensive rheumatoid nodules. Pain with ROM of shoulders. Knees with mild swelling. ). Appearance - no erythema, no ecchymosis, no amputations, no deformity, no asymmetry, no contractures and normal spinal curvature. Palpation - no increased warmth, no masses, no click and no crepitus. Range of Motion: Normal movement of all extremities. Stability: Normal. Muscle strength/tone: Normal. Skin Skin inspection: Normal skin color and pigmentation, normal skin turgor and no visible rash. Neurologic Coordination: Normal. Psychiatric Judgment and insight: Intact. Orientation: Oriented to person, place, and time. Recent and remote memory: Normal. Mood and affect: Normal. Diagnoses/Problems Rheumatoid arthritis with rheumatoid factor of multiple sites without organ or systems involvement (714.0) (M05.79) Rheumatoid nodules (714.0) (M06.30) On etanercept therapy (V58.69) (Z79.899) Provider Impressions 1. RA, seropositive with nodules. Stabilizing 2. high risk immunosuppression in the past without signs of increased infection Labs were done to assess disease activity and drug toxicity. MARVA CUELLAR has RA on high risk immunosuppression currently on enbrel Patient has the following poor prognostic factors requiring aggressive treatment: RF+, extraarticular manifestations, Patient has failed the following meds MTX, humira, Last TB test was Jan 2017 and negative Due to immunosuppression, vaccination is important The patient's labs, radiology images and reports, and other tests since previous appointment were obtained, reviewed, and summarized as applicable from the physician portal, electronic medical records s tenc and/or outside sources. Pertinent positive and negative findings were considered in medical decision making. All questions were answered and the patient was counseled regarding the diagnosis, prognosis, risk and benefits of the various treatment options and the importance of compliance with therapy. Patient Discussion/Summary follow up 4 months Patient Education Homegoing instructions As always, a healthy lifestyle helps chronic diseases. Eat a balanced diet, exercise at least 30 minutes a day/5 days a week and be up to date on screening health exams Go on [facility] to view your test results. Please ask the office to help you set up your email in order to access this secure system. You can use [facility] to also contact the office for noncritical issues, schedule/cancel appointments and ask for refills. Thank you .. End of Encounter Meds Enbrel 50 MG/ML Subcutaneous Solution Prefilled Syringe; INJECT 50 MG Weekly; Therapy: 30Apr2017 to (Last Rx:14May2017) Requested for: 14May2017 Ordered PredniSONE 10 MG Oral Tablet; take 1 tablet by mouth daily as directed; Therapy: 30Jul2017 to (Evaluate:[id number]) Requested for: 11Kto1609; Last Rx:30She1099 Ordered Signatures Electronically signed by : Juana Black MD; Nov 05 2017 8:26AM EST (Author) ALLERGIES ALLERGIES DATE TYPE / CODE NAME / CODE REACTION SEVERITY SOURCE 12/28/2017 Drug No Known Unknown [facility] Allergy/4160 Allergies/F00 Hospital 59885(SNOMED [id number](RXNOR Repository CT) M) ENCOUNTERS ENCOUNTERS ADMIT/DISCHARGE ACCOUNT ADMITTING ENCOUNTER LOCATION SOURCE NUMBER CLASS 03/12/2018 [id number] Ambulatory [place] Rain[place] 3 [facility] ing:LABSPEC Repository 03/12/2018 [id number] Ambulatory [place] Rainier 6 [facility] ing:OLS.WCEH Repository 01/04/2018/ [id number] Ambulatory Tara Rainier 8 7 [facility] ing:SDC Repository 12/25/2017 [id number] Ambulatory [place] Tara 2 [facility] ing:MFPLAB Repository 11/13/2017 [id number] Ambulatory [place] Tara 4 [facility] ing:OLS.WCEH Repository PAYERS PAYERS ENCOUNTER GUARANTOR PAYER SUBSCRIBER SOURCE 03/12/2018 MARVA [id number] Insurance:AETNAPolicy BELLDOB: [address] Number: [id number] [id number] Repository [address]Lut: (419) Date:[id number] [phone] () [place] [address]YH: 03/12/2018 Secondary NOT GIVENUNK Tara Insurance:SELF PAY [facility] Number: Effective Repository Date:2018-03-12 03/12/2018 MARVA Turner Primary NOT GIVENUNK Tara [id number] Insurance:SELF PAY [address] Number: Effective Repository [id number]: (419) Date:2018-03-12 [phone] () 01/04/2018 MARVA CEULLAR[address] Insurance:AETNAPolicy KATELYNNORDDOB: [address] Number: [id number], [place] [id number] Repository [address]Mgt: 419) Date:[id number] [phone] (HP) [id number] [phone]: 01/04/2018 Secondary NOT GIVENUNK [place] Insurance:SELF PAY [facility] Number: Effective Repository Date:2017-11-12 12/25/2017 MARVA R Primary MARVA R Rainieragustín [id number] Insurance:AETNAPolicy KATELYNNDORIANDOB: Community [address] Number: [id number], [id number] Repository [place] [address]Eut: Date:[id number] [id number] [place] () [phone]: 12/25/2017 Secondary NOT GIVENUNK Tara Insurance:SELF PAY [facility] Number: Effective Repository Date:2017-12-25 11/13/2017 Marva Primary NOT GIVENUNK Tara [id number] Insurance:SELF PAY [address], Number: Effective Repository [place] [address]Lob: Date:2017-11-13 (HP)
== END ==
DX: M05.79 Rheumatoid arthritis with rheumatoid factor of multiple sites without organ or systems involvement (principal)
CPT/HCPCS: 85652; 86140

== ENCOUNTER → 2019-03-10 11:51 | Outpatient (CLI) | payer OTHER, SELFPAY ==
[2018-01-04 06:16] VITALS: BMI 23.8
--- NOTE | 2019-03-10 11:56 | RAD_ITS ---
STUDY: X-RAY - LEFT HAND, ATTENTION FINGER REASON FOR EXAM: Male, 53 years old. TECHNIQUE: view(s) of the finger were obtained. COMPARISON: None. FINDINGS: Please see the report of the left hand done same day. Electronically Signed: Latha Conklin, at 12:50 EST Tel , Service support , RAD/Finger(s) Min 2 Views
--- NOTE | 2019-03-10 11:57 | RAD_ITS ---
STUDY: X-RAY - LEFT HAND REASON FOR EXAM: Male, 53 years old. TECHNIQUE: view(s) of the hand. COMPARISON: None. FINDINGS: There is fracture involving the tuft of the distal phalanx of the left thumb. No other fracture or dislocation seen. 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 Otherwise no osseous or articular abnormality seen. No soft tissue swelling identified. 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 Electronically Signed: Latha Conklin, at 12:37 EST Tel , Service support ,
== END ==
PROVIDERS: Referring Provider Family Medicine; Visit Provider Family Medicine
DX: S62.522A Displaced fracture of distal phalanx of left thumb, initial encounter for closed fracture (principal); X58.XXXA Exposure to other specified factors, initial encounter
CPT/HCPCS: 73130; 73140

== ENCOUNTER → 2022-03-29 | Outpatient (CLI) | payer OTHER, SELFPAY ==
[2022-03-29 13:25] LABS: Syphilis Antibodies Non-reactive
[2022-03-29 18:06] LABS: Chlamydia Trachomatis by PCR Negative (Negative); Neisserai gonorrhoeae by PCR Negative (Negative); Probe Check PASS; Sample Adequacy Control PASS; Specimen Processing Control PASS
[2022-03-31 11:44] LABS: HSV 1 IgG 5.78 index (0.00-0.90)
== END | disposition home or self-care (01) ==
PROVIDERS: PCP Family Medicine; Referring Provider Family Medicine; Visit Provider Family Medicine
DX: N48.9 Disorder of penis, unspecified (principal)
CPT/HCPCS: 36415; 86695; 86696; 86780; 87491; 87591

== ENCOUNTER → 2025-03-30 | Outpatient (CLI) | payer OTHER, SELFPAY ==
--- NOTE | 2025-03-30 06:17 | CT_ITS ---
PROCEDURE: LOW DOSE CT LUNG SCREENING 03/30/2025 REASON FOR EXAM: NICTOINE DEPENDENCE Former smoker. Patient has smoked 1 pack per day for 30 years. History of COPD. Hypertension. TECHNIQUE: Procedure Code: CTLUNGSCREEN Modality: CT Procedure: LOW DOSE CT LUNG SCREENING Coronal and Sagittal reconstruction series were provided. One or more dose reduction techniques were used (e.g., Automated exposure control, adjustment of the mA and/or kV according to patient size, use of iterative reconstruction technique). REFERENCE LINK: [place] [facility] Lung-RADS RADIATION DOSE SUMMARY: CTDlvol: 4.02 mGy DLP: 133.41 mGycm COMPARISON: None FINDINGS: PULMONARY NODULES: (Only nodules >3mm are reported) Nodules described below are on series 1 unless otherwise specified. Pulmonary Nodules: Tiny calcified granuloma seen in the peripheral lateral aspect of the left lung apex as seen on axial image number 49 no suspicious pulmonary nodule or mass lesion is seen. Tiny calcified granuloma seen in the posterior aspect of the right upper lobe laterally as seen on axial image number 120 Hardware:None Lymph Nodes:No suspicious lymph nodes are seen. Heart and Vasculature:The heart is nonenlarged. Minimal anterior pericardial thickening. Coronary Artery Calcifications: No significant coronary artery calcification is present. Lungs and Airways: Scarring at the lung apices as well as in the posterior medial segment of the right lower lobe. Pleura:No pleural effusion. Upper Abdomen:Unremarkable Bones:Degenerative changes of the thoracic spine. CT/Low Dose CT Lung Screening IMPRESSION: No suspicious pulmonary nodules seen. Mild scarring at the lung apices in the posterior medial segment of the right lower lobe. Coronary artery calcification (CAC) is is absent Lung-RADS Category: 2 BENIGN (BASED ON IMAGING FEATURES OR INDOLENT BEHAVIOR). RECOMMEND 12-MONTH SCREENING LDCT. Other Significant Findings: Reading Location: [facility]
--- OUTSIDE RECORDS SUMMARY | 2025-03-30 06:18 | XMS RPT_ITS | CCD ---
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 Name Role Phone Sidney Beckham MD Unavailable Unavailable Jolliff, Malissa S Unavailable Unavailable Eren Smith Unavailable Unavailable Sidney Beckham Unavailable Unavailable Jolliff, Malissa S Unavailable Unavailable Unavailable DosKarol kenyon Attending Unavailable Jolliff, Malissa S Primary Care Unavailable Jolliff, Malissa S Referring Unavailable DossiKarol Attending Unavailable Jolliff, Malissa S Primary Care Unavailable Jolliff, Malissa S Referring Unavailable Dossi, Karol Attending Unavailable Jolliff, Malissa S Referring Unavailable Jolliff, Malissa S Primary Care Unavailable DosKarol kenyon Attending Unavailable [facility] Referring Unavailable [facility] Primary Care Unavailable Lew Melchor Attending Unavailable Jolliff, Malissa S Primary Care Unavailable Dossi, Karol Attending Unavailable Jolliff, Malissa S Referring Unavailable Jolliff, Malissa S Primary Care Unavailable Dossi, Karol Attending Unavailable Jolliff, Malissa S Primary Care Unavailable Jolliff, Malissa S Referring Unavailable Dossi, Karol Attending Unavailable Jolliff, Malissa S Primary Care Unavailable Jolliff, Malissa S Referring Unavailable DossiKarol Attending Unavailable Jolliff, Malissa S Referring Unavailable Jolliff, Malissa S Primary Care Unavailable Jolliff, Malissa S Attending Unavailable Jolliff, Malissa S Referring Unavailable Jolliff, Malissa S Primary Care Unavailable Dossi, Karol Attending Unavailable Jolliff, Malissa S Primary Care Unavailable MD SIDNEY BECKHAM Attending Unavailable Jolliff, Dr. Malissa Tsai Referring Unavail able Jolliff, Dr. Malissa Tsai Primary Care Unavail able Jolliff, Dr. Malissa Tsai Referring Unavail able Jolliff, Dr. Malissa Boscher Primary Care Unavail able MD SIDNEY BECKHAM Attending Unavailable Sidney Beckham MD Unavailable Malissa Dickey MD Primary Care Provider Sidney Beckham MD Unavailable [phone] SIDNEY BECKHAM Attending Unavailable MALISSA DICKEY Primary Care Unavailable SIDNEY BECKHAM Attending Unavailable MALISSA DICKEY Primary Care Unavailable SIDNEY BECKHAM Attending Unavailable SIDNEY BECKHAM Referring Unavailable MALISSA DICKEY Primary Care Unavailable Medications Current Medications Medication Drug Class(es) Dates Sig (Normalized) Sig (Original) acetaminophen 300 mg / HYDROcodone bitartrate 5 mg oral tablet (1 source) Opioid Agonist Start: 01-04-2018 take 1 tablet by mouth every six hours as needed Hydrocodone-Acetam inophen Active 1 TABLET PO EVERY 6 HOURS NEEDED 02 09January 03, 2018 11:00pm rosuvastatin calcium 5 mg oral tablet (2 sources) HMG-CoA Reductase Inhibitor Start: 05-06-2024 End: 10-27-2024 take 1 tablet by mouth once daily at bedtime rosuvastatin (Crestor) 5 mg tablet Take 1 tablet (5 mg) by mouth once daily at bedtime. 05/06/2024 10/27/2024 Discontinued (Med List Cleanup) 24 hr tofacitinib 11 mg extended release oral tablet (20 sources) Start: 09-18-2023 End: 10-27-2025 take 1 tablet by mouth once daily Xeljanz XR 11 mg tablet extended release 24 hr Indications: Rheumatoid arthritis with rheumatoid factor of multiple sites without organ or systems involvement (Multi) Take 1 tablet (11 mg) by mouth once daily. 90 tablet 3 10/27/2024 10/27/2025 Active Start: 07-22-2018 take 1 tablet by sudhir th once daily Xeljanz XR 11 MG Oral Tablet Extended Release 24 Hour Take 1 tablet daily Quantity: 90 Refills: 3 Ordered: 30-Oct-2022 Sidney Beckham MD Start : 22-Jul-2018 Active PA approved through 12/19/22, per insurance, pt [facility] Completed/Discontinued Medications Medication Drug Class(es) Dates Sig (Normalized) Sig (Original) 1 ml etanercept 50 mg/ml prefilled syringe (1 source) Tumor Necrosis Factor Thelma Start: 12-28-2017 End: 01-04-2018 inject 50 mg by subcutaneous injection every week Etanercept (Enbrel) 50 MG/ML Ml Discontinued 50 MG SQ Q7D December 27, 2017 11:00pm January 04, 2018 7:23am predniSONE 10 mg oral tablet (1 source) Start: 12-28-2017 End: 01-04-2018 take 10 mg by mouth once daily Prednisone Discontinued 10 MG PO DAILY December 27, 2017 11:00pm January 04, 2018 7:23am Problems Active Problems Problem Classification Problem Date Documented Da te Episodic/Chronic Cataract (17 sources) Bilateral cataracts; Translations: [Unspecified cataract] Chronic Disorders of lipid metabolism (2 sources) Hyperlipidemia; Translations: [Hyperlipidemia, unspecified] Onset: 06-16-2024 06-16-2024 Chronic Other acquired deformities (1 source) Scoliosis of lumbar spine; Translations: [Scoliosis, unspecified] Chronic Other aftercare (20 sources) Long-term current use of tofacitinib; Translations: [Long-term (current) use of other medications] Onset: 09-23-2023 09-24-2023 Episodic Other aftercare (5 sources) Immunosuppression; Translations: [Long-term (current) use of other medications] Episodic Other bone disease and musculoskeletal deformities (1 source) Other idiopathic scoliosis, lumbar region; Translations: [M41.26 - Other idiopathic scoliosis, lumbar region] Onset: 07-07-2021 Chronic Other bone disease and musculoskeletal deformities (4 sources) Segmental and somatic dysfunction; Translations: [Segmental and somatic dysfunction of cervical region] Episodic Other circulatory disease (5 sources) Elevated blood pressure; Translations: [Elevated blood pressure reading without diagnosis of hypertension] Episodic Other male genital disorders (1 source) Disorder of penis, unspecified; Translations: [Disorder of penis, unspecified] Onset: 04-16-2022 Chronic Other nutritional; endocrine; and metabolic disorders (10 sources) Overweight in adulthood with body mass index of 25 or more but less than 30; Translations: [Overweight] Episodic Residual codes; unclassified (7 sources) Body mass index 20-24 - normal; Translations: [Body Mass Index between 19-24, adult] Episodic Residual codes; unclassified (7 sources) Vaccination not done; Translations: [Vaccination not carried out, unspecified reason] Episodic Residual codes; unclassified (3 sources) Needs influenza immunization; Translations: [Other specified conditions influencing health status] Episodic Rheumatoid arthritis and related disease (20 sources) Subcutaneous rheumatoid nodule; Translations: [Rheumatoid arthritis] Onset: 12-14-2011 Resolved: 09-24-2023 09-24-2023 Chronic Spondylosis; intervertebral disc disorders; other back problems (20 sources) Cervical spondylosis; Translations: [Cervical spondylosis without myelopathy] Onset: 09-23-2023 09-23-2023 Chronic Unclassified (2 sources) Long-term current use of tofacitinib 06-16-2024 Unclassified (1 source) 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; Translations: [senior living (current) use of janus kinase inhibitor] Onset: 09-23-2023 Past or Other Problems Problem Classification Problem Date Documented Da te Episodic/Chronic Hepatitis (4 sources) Viral hepatitis C; Translations: [Unspecified viral hepatitis C without hepatic coma] Onset: 12-14-2011 Resolved: 09-24-2023 09-24-2023 Episodic Other aftercare (20 sources) Drug therapy finding; Translations: [Long-term (current) use of steroids] Resolved: 05-03-2020 Episodic Other aftercare (17 sources) senior living current use of adalimumab therapy; Translations: [Long-term (current) use of other medications] Resolved: 04-30-2017 Episodic Other bone disease and musculoskeletal deformities (1 source) Segmental and somatic dysfunction of cervical region; Translations: [M99.01 - Segmental and somatic dysfunction of cervical region] Onset: 07-07-2021 Episodic Other bone disease and musculoskeletal deformities (1 source) Segmental and somatic dysfunction of pelvic region; Translations: [M99.05 - Segmental and somatic dysfunction of pelvic region] Onset: 07-07-2021 Episodic Other bone disease and musculoskeletal deformities (1 source) Segmental and somatic dysfunction of lumbar region; Translations: [M99.03 - Segmental and somatic dysfunction of lumbar region] Onset: 07-07-2021 Episodic Other bone disease and musculoskeletal deformities (1 source) Segmental and somatic dysfunction of thoracic region; Translations: [M99.02 - Segmental and somatic dysfunction of thoracic region] Onset: 07-07-2021 Episodic Other connective tissue disease (20 sources) Triggering of digit; Translations: [Trigger finger (acquired)] Onset: 09-23-2023 09-23-2023 Episodic Other eye disorders (4 sources) Tear film insufficiency; Translations: [Dry eye syndrome of unspecified lacrimal gland] Onset: 05-08-2016 Resolved: 09-24-2023 09-24-2023 Episodic Residual codes; unclassified (6 sources) Influenza vaccination declined; Translations: [Vaccination not carried out because of patient refusal] Resolved: 01-28-2021 Episodic Unclassified (4 sources) Onset: 09-24-2023 Resolved: 10-27-2024 09-24-2023 Unclassified (1 source) 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 02-24-2025 [facility] Letter Text Normal [facility] C-REACTIVE PROTEINon 025 CRP [Mass/Vol] mg/L Normal <8.0 [facility] Comment on above: Performed By: #### 6 399, 17868, 805 #### [facility] [place] [address] Crab Catcher: Robby Richmond MD CBC (INCLUDES DIFF/PLT)on Basophils (Bld) [#/Vol] 0.01 10*3/uL Normal 0-200 [facility] Comment on above: Performed By: #### 6 399, 89989, 809 #### [facility] [place] [address] Crab Catcher: Robby Richmond MD Basophils/100 WBC (Bld) 0.2 % Normal [facility] Comment on above: Performed By: #### 6 399, 75156, 809 #### [facility] [place] [address] Crab Catcher: Robby Richmond MD Eosinophils (Bld) [#/Vol] 0.049 10*3/uL Normal 15-500 [facility] Comment on above: Performed By: #### 6 399, 62459, 809 #### [facility] of [place] [address] Crab Catcher: Robby Richmond MD Eosinophils/100 WBC (Bld) 1.0 % Normal [facility] Comment on above: Performed By: #### 6 399, 23247, 809 #### [facility] [place] [address] Crab Catcher: Robby Richmond MD Erythrocyte distribution width (RBC) [Ratio] 14.9 % Normal 11.0-15.0 [facility] Comment on above: Performed By: #### 6 399, 70040, 809 #### [facility] [place] [address] Crab Catcher: Robby Richmond MD Hematocrit (Bld) [Volume fraction] 46.4 % Normal 38.5-50.0 [facility] Comment on above: Performed By: #### 6 399, 08783, 809 #### [facility] [place] [address] Crab Catcher: Robby Richmond MD Hemoglobin (Bld) [Mass/Vol] 15.1 g/dL Normal 13.2-17.1 [facility] Comment on above: Performed By: #### 6 399, 09267, 809 #### [facility] of [place] [address] Crab Catcher: Robby Richmond MD Lymphocytes (Bld) [#/Vol] 2.019 10*3/uL Normal 850-3900 [facility] Comment on above: Performed By: #### 6 399, 11807, 809 #### [facility] of [place] [address] Crab Catcher: Robby Richmond MD Lymphocytes/100 WBC (Bld) 41.2 % Normal [facility] Comment on above: Performed By: #### 6 399, 01122, 809 #### [facility] of [address], [address] [place] [address] Crab Catcher: Robby Richmond MD MCH (RBC) [Entitic mass] 31.3 pg Normal 27.0-33.0 [facility] Comment on above: Performed By: #### 6 399, 17768, 809 #### [facility] of [address], [address] [place] [address] Crab Catcher: Robby Richmond MD MCHC (RBC) [Mass/Vol] 32.5 g/dL Normal 32.0-36.0 [facility] Comment on above: Result Comment: For adults, a slight decrease in the calculated MCHC value (in the range of 30 to 32 g/dL) is most likely not clinically significant; however, it should be interpreted with caution in correlation with other red cell parameters and the patient's clinical condition. Performed By: #### 6 399, 42244, 809 #### [facility] of [address], [address] [place] [address] Crab Catcher: Robby Richmond MD MCV (RBC) [Entitic vol] 96.3 fL Normal 80.0-100.0 [facility] Comment on above: Performed By: #### 6 399, 02905, 809 #### [facility] of [place] [address] Crab Catcher: Robby Richmond MD Monocytes (Bld) [#/Vol] 0.466 10*3/uL Normal 200-950 [facility] Comment on above: Performed By: #### 6 399, 39167, 809 #### [facility] of [place] [address] Crab Catcher: Robby Richmond MD Monocytes/100 WBC (Bld) 9.5 % Normal [facility] Comment on above: Performed By: #### 6 399, 03443, 809 #### [facility] [place] [address] Crab Catcher: Robby Richmond MD Neutrophils (Bld) [#/Vol] 2.357 10*3/uL Normal 6753-6649 [facility] Comment on above: Performed By: #### 6 399, 49543, 809 #### [facility] of [address], [address] [place] [address] Crab Catcher: Robby Richmond MD Neutrophils/100 WBC (Bld) 48.1 % Normal [facility] Comment on above: Performed By: #### 6 399, 73059, 809 #### [facility] of [address], [address] [place] [address] Crab Catcher: Robby Richmond MD Platelet mean volume (Bld) [Entitic vol] 8.5 fL Normal 7.5-12.5 [facility] Comment on above: Performed By: #### 6 399, 54081, 809 #### [facility] of [address], [address] [place] [address] Crab Catcher: Robby Richmond MD Platelets (Bld) [#/Vol] 249 10*3/uL Normal 140-400 [facility] Comment on above: Performed By: #### 6 399, 50249, 809 #### [facility] of [place] [address] Crab Catcher: Robby Richmond MD RBC (Bld) [#/Vol] 4.82 10*6/uL Normal 4.20-5.80 [facility] Comment on above: Performed By: #### 6 399, 52574, 809 #### [facility] of [address], [address] [place] [address] Crab Catcher: Robby Richmond MD WBC (Bld) [#/Vol] 4.9 10*3/uL Normal 3.8-10.8 [facility] Comment on above: Performed By: #### 6 399, 98129, 809 #### [facility] of [place] [address] Crab Catcher: Robby Richmond MD COMPREHENSIVE METABOLIC PANE L W/ANION GAPon 10-28-2024 Albumin [Mass/Vol] 4.6 g/dL Normal 3.6-5.1 [facility] Comment on above: Order Comment: FASTI NG:YES FASTING: YES Performed By: #### 6 399, 15826, 809 #### [facility] [place] [address] Crab Catcher: Robby Richmond MD ALP [Catalytic activity/Vol] 52 U/L Normal 35-144 [facility] Comment on above: Order Comment: FASTI NG:YES FASTING: YES Performed By: #### 6 399, 15772, 809 #### [facility] [place] [address] Crab Catcher: Robby Richmond MD ALT [Catalytic activity/Vol] 17 U/L Normal 9-46 [facility] Comment on above: Order Comment: FASTI NG:YES FASTING: YES Performed By: #### 6 399, 25758, 809 #### [facility] [place] [address] Crab Catcher: Robby Richmond MD AST [Catalytic activity/Vol] 18 U/L Normal 10-35 [facility] Comment on above: Order Comment: FASTI NG:YES FASTING: YES Performed By: #### 6 399, 36981, 809 #### [facility] [place] [address] Crab Catcher: Robby Richmond MD Bilirubin [Mass/Vol] 0.6 mg/dL Normal 0.2-1.2 [facility] Comment on above: Order Comment: FASTI NG:YES FASTING: YES Performed By: #### 6 399, 25315, 809 #### [facility] [place] [address] Crab Catcher: Robby Richmond MD Calcium [Mass/Vol] 9.7 mg/dL Normal 8.6-10.3 [facility] Comment on above: Order Comment: FASTI NG:YES FASTING: YES Performed By: #### 6 399, 60812, 809 #### [facility] [address], [address] [place] [address] Crab Catcher: Robby Richmond MD Chloride [Moles/Vol] 100 mmol/L Normal 98-110 [facility] Comment on above: Order Comment: FASTI NG:YES FASTING: YES Performed By: #### 6 399, 98039, 809 #### [facility] [place] [address] Crab Catcher: Robby Richmond MD CO2 [Moles/Vol] 28 mmol/L Normal 20-32 [facility] Comment on above: Order Comment: FASTI NG:YES FASTING: YES Performed By: #### 6 399, 61291, 809 #### [facility] [place] [address] Crab Catcher: Robby Richmond MD Creatinine [Mass/Vol] 0.90 mg/dL Normal 0.70-1.30 [facility] Comment on above: Order Comment: FASTI NG:YES FASTING: YES Performed By: #### 6 399, 15767, 809 #### [facility] [place] [address] Crab Catcher: Robby Richmond MD ELECTROLYTE BALANCE 9 mmol/L (calc) Normal 7-17 [facility] Comment on above: Order Comment: FASTI NG:YES FASTING: YES Performed By: #### 6 399, 13577, 809 #### [facility] [place] [address] Crab Catcher: Robby Richmond MD GFR/1.73 sq M.predicted among non-blacks MDRD (S/P/Bld) [Vol rate/Area] 100 mL/min/{1.73_m2} Normal > OR = 60 [facility] Comment on above: Order Comment: FASTI NG:YES FASTING: YES Performed By: #### 6 399, 49551, 809 #### [facility] [place] [address] Crab Catcher: Robby Richmond MD Glucose [Mass/Vol] 96 mg/dL Normal 65-99 [facility] Comment on above: Order Comment: FASTI NG:YES FASTING: YES Result Comment: Fasting reference interval Performed By: #### 6 399, 96569, 809 #### [facility] [place] [address] Crab Catcher: Robby Richmond MD Potassium [Moles/Vol] 4.8 mmol/L Normal 3.5-5.3 [facility] Comment on above: Order Comment: FASTI NG:YES FASTING: YES Performed By: #### 6 399, 61259, 809 #### [facility] [place] [address] Crab Catcher: Robby Richmond MD Protein [Mass/Vol] 7.9 g/dL Normal 6.1-8.1 [facility] Comment on above: Order Comment: FASTI NG:YES FASTING: YES Performed By: #### 6 399, 39359, 809 #### [facility] [place] [address] Crab Catcher: Robby Richmond MD Sodium [Moles/Vol] 137 mmol/L Normal 135-146 [facility] Comment on above: Order Comment: FASTI NG:YES FASTING: YES Performed By: #### 6 399, 74843, 809 #### [facility] [place] [address] Crab Catcher: Robby Richmond MD Urea nitrogen [Mass/Vol] 15 mg/dL Normal 7-25 [facility] Comment on above: Order Comment: FASTI NG:YES FASTING: YES Performed By: #### 6 399, 60558, 809 #### [facility] [place] [address] Crab Catcher: Robby Richmond MD SED RATE BY SUSAN Reyes 10-28-2024 SED RATE BY MODIFIED RAFA 6 mm/h Normal < OR = 20 [facility] Comment on above: Performed By: #### 6 399, 26191, 809 #### [facility] [address] 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) (D84.821,Z79.899) Former tobacco use (V15.82) (Z87.891) Trigger little finger of right hand (727.03) (M65.351) Orders Rheumatoid arthritis with rheumatoid factor of multiple sites without organ or systems involvement Renew: Xeljanz XR 11 MG Oral Tablet Extended Release 24 Hour; Take 1 tablet daily Rx By: Sidney Beckham; Dispense: 90 Days ; #:90 Tablet; Refill: 3;For: Rheumatoid arthritis with rheumatoid factor of multiple sites without organ or systems involvement; KIRTI = N; Sent To: SPECIALTY [facility]; Msg to Pharmacy: JIL approved through 12/19/22, per insurance, [facility] C Reactive Protein, Serum; Status:Active; Requested for:27Oct2022; Perform:Lab Services - Lab To Draw (Blood Test); Due:25Jan2023;Ordered; For:Rheumatoid arthritis with rheumatoid factor of multiple sites without organ or systems involvement; Ordered By:Sidney Beckham; Complete Blood Count + Differential; Status:Active; Requested for:[id number]; Perform:Lab Services - Lab To Draw (Blood Test); Due:25Jan2023;Ordered; For:Rheumatoid arthritis with rheumatoid factor of multiple sites without organ or systems involvement; Ordered By:Sidney Beckham; Comprehensive Metabolic Panel; Status:Active; Requested for:[id number]; Perform:Lab Services - Lab To Draw (Blood Test); Due:25Jan2023;Ordered; For:Rheumatoid arthritis with rheumatoid factor of multiple sites without organ or systems involvement; Ordered By:Sidney Beckham; Sedimentation Rate, Erythrocyte; Status:Active; Requested for:[id number]; Perform:Lab Services - Lab To Draw (Blood Test); Due:25Jan2023;Ordered; For:Rheumatoid arthritis with rheumatoid factor of multiple sites without organ or systems involvement; Ordered By:Sidney Beckham; Patient Discussion/Summary It was a pleasure seeing you today Please call if symptoms worsen Follow up in 3-4 months we will notify you of your results by phone, mail or through the patient portal. Please call if you don't receive your test results in 7 days Patient Education Homegoing instructions As always, a healthy lifestyle helps chronic diseases. These are all the goals you should strive to achieve to improve your overall health: blood pressure less than 130/85 BMI of 21-29.99 or a waist circumference that is 1/2 of your height fasting blood sugar less than 107 (if you are diabetic, aim for your A1c to be below 6.4% LDL cholesterol below 130 avoid smoking manage your stress see your primary care doctor for preventive exams, including colon cancer screenings get your immunizations Provider Impressions RA on xeljanz therapy. Meets remission criteria. Pt doing well on treatment. Has chronic trigger finger issues with R hand but no signs of active arthritis affecting his ability to do things. pt to continue meds. Labs were ordered to assess disease activity and drug toxicity. Gaps in care reviewed and pt is due for---colon cancer screening---vaccinations Chief Complaint here for follow up RA History of Present Illness Interval Events: doing well. Just has issues with R hand with locking but otherwise, no pain and nothing is affecting his ability to work. No flares in >3 years. Pt feels well. No new areas of involvement. Symptoms: Systemically the patient has skin involvement and positive rheumatoid factor testing. Activities: no limitations. Medications: the patient is adherent with his medication regimen. Additional History: Dx in 2006. Failed MTX and humira (loss of efficacy), enbrel (rituxan not approved by insurance). Review of Systems Constitutional: no fever and not feeling tired. Respiratory: no cough and no shortness of breath during exertion. Musculoskeletal: arthralgias and joint stiffness, but no joint swelling. All other systems have been reviewed and are negative for complaint. 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 Negative supplemental testing does not confirm the presence of IgG antibodies to HSV-2; recommend re-testing in 2 to 4 weeks if clinically indicated. Performed at: [address] [id number] Instrument Lens Grinder: Johnnie Cardozo PhD, Phone: [phone] Performed By: #### L 8200.2000, L509.8000, L3400.1610 ####[facility] [address] [place], [place], [address] HSV 1 IgG 5.78 index High 0.00-0.90 [facility] Comment on above: Order Comment: Order Date: 03/29/22Order Info: [id number] - HSNUACOrder Info: [id number] - GCNAAComments: urine Result Comment: Nega tive <0.91 Equivocal 0.91 - 1.09 Positive >1.09 Note: Negative indicates no antibodies detected to HSV-1. Equivocal may suggest early infection. If clinically appropriate, retest at later date. Positive indicates antibodies detected to HSV-1. Performed By: #### L 8200.1999, L509.8000, L3400.1610 ####[facility] [address] [place], [place], [id number] HSV 2 IgG 4.80 index High 0.00-0.90 [facility] Comment on above: Order Comment: Order Date: 03/29/22Order Info: [id number] - HSNUACOrder Info: [id number] - GCNAAComments: urine Result Comment: Nega tive <0.91 Equivocal 0.91 - 1.09 Positive >1.09 Note: Negative indicates no HSV-2 antibodies detected. Positive indicates HSV-2 antibodies detected. Equivocal and low positive HSV-2 screens (Index 0.91-5.00) may be false positive and are reflexed to supplemental testing in accordance with CDC guidelines. Performed By: #### L 8200.1999, L509.8000, L3400.1610 ####[facility] [address] [place], [place], [id number] Basophil percentageon 2021 C. trachomatis DNA CLAUDIO+probe Ql (Unsp spec) Negative Negative [facility] Work Phone: CT/NG [facility] BY PCRon 2 CT by PCR Negative Normal Negative [facility] Comment on above: Performed By: #### L 8200.1999, L509.8000, L3400.1610 ####[facility] [address] [place], [address] NG by PCR Negative Normal Negative [facility] Comment on above: Performed By: #### L 8200.1999, L509.8000, L3400.1610 ####[facility] [address] [place], [address] L509.8000on 03-29-2022 Syphilis Abs Non-Reactive Normal [facility] Comment on above: Performed By: #### L 8200.1999, L509.8000, L3400.1610 ####[facility] [address] [place], [address] Neisseria gonorrhoeae detect ion by PCRon 03-29-2022 N. gonorrhoeae DNA CLAUDIO+probe Ql (Cervical mucus) Negative Negative [facility] Work Phone: No Panel Informationon 03-29 Herpes Simplex Virus I IgG Antibody 5.78 index 0.00-0.90 [facility] Work Phone: Comment on above: Negative <0.91 Equiv ocal 0.91 - 1.09 Positive >1.09 Note: Negative indicates no antibodies detected to HSV-1. Equivocal may suggest early infection. If clinically appropriate, retest at later date. Positive indicates antibodies detected to HSV-1. 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 Negative supplemental testing does not confirm the presence of IgG antibodies to HSV-2; recommend re-testing in 2 to 4 weeks if clinically indicated.Performed at: [address] [id number] Director: Johnnie Cardozo PhD, Phone: [phone] Serum Treponema species anti body detectionon 03-29-2022 Treponema sp Ab Ql (S) Non-Reactive [facility] Work Phone: Serum herpes simplex virus 2 antibody assay by immunoassay (units/volume)on 03-29-2022 HSV 2 Ab IA Qn (S) 4.80 index 0.00-0.90 [facility] Work Phone: Comment on above: Negative <0.91 Equiv ocal 0.91 - 1.09 Positive >1.09 Note: Negative indicates no HSV-2 antibodies detected. Positive indicates HSV-2 antibodies detected. Equivocal and low positive HSV-2 screens (Index 0.91-5.00) may be false positive and are reflexed to supplemental testing in accordance with CDC guidelines. ALBUMINon 01-04-2022 Albumin [Mass/Vol] 4.4 g/dL Normal 3.4 - 5.0 [facility] Comment on above: Performed By: #### A LB #### [facility] [address] [place] [address] Javed 01-04-2022 ALT [Catalytic activity/Vol] 22 U/L Normal 10 - 52 [facility] Comment on above: Result Comment: Yeimi ents treated with Sulfasalazine may generate falsely decreased results for ALT. Performed By: #### A LT #### [facility] [address] [place] [address] ALT - Alanine Aminotransfera se, Serumon 01-04-2022 ALT With P-5'-P [Catalytic activity/Vol] 22 U/L 10 - [facility] Work Phone: Comment on above: Patients treated wit h Sulfasalazine may generate falsely decreased results for ALT. Les 01-04-2022 AST [Catalytic activity/Vol] 32 U/L Normal 9 - 39 [facility] Comment on above: Performed By: #### A ST #### [facility] [address] [place] [address] Albumin, Serumon 01-04-2022 Albumin BCP dye [Mass/Vol] 4.4 g/dL 3.4 - 5.0 [facility] Work Phone: Blood Urea Nitrogen, Serumon 01-04-2022 Urea nitrogen [Mass/Vol] 13 mg/dL 6 - 23 [facility] [employer] Work Phone: C Reactive Protein, Serumon 01-04-2022 CRP [Mass/Vol] 0.25 mg/dL -[facility] Work Phone: Comment on above: REF VALUE< 1.00 C-REACTIVE PROTEINon 022 C-REACTIVE PROTEIN 0.25 mg/dL Normal [facility] Comment on above: Result Comment: REF VALUE < 1.00 Performed By: #### C RP #### [facility] [address] [place] [address] CBC AND DIFFERENTIALon 01-04 % AUTOMATED IMMATURE GRAN 0.0 % Normal 0.0 - 0.9 [facility] Comment on above: Result Comment: Rosa ture Granulocyte Count (IG) includes promyelocytes, myelocytes and metamyelocytes but does not include bands. Percent differential counts (%) should be interpreted in the context of the absolute cell counts (cells/L). Performed By: #### C BCDF #### [facility] [address] [place] [address] Basophils (Bld) [#/Vol] 0.03 10*3/uL Normal 0.00 - 0.10 [facility] Comment on above: Performed By: #### C BCDF #### [facility] [address] [place] [address] Basophils/100 WBC (Bld) 0.8 % Normal 0.0 - 2.0 [facility] Comment on above: Performed By: #### C BCDF #### [facility] [address] [place] [address] Eosinophils (Bld) [#/Vol] 0.07 10*3/uL Normal 0.00 - 0.70 [facility] Comment on above: Performed By: #### C BCDF #### [facility] [address] [place] [address] Eosinophils/100 WBC (Bld) 2.0 % Normal 0.0 - 6.0 [facility] Comment on above: Performed By: #### C BCDF #### [facility] [address] [place] [address] Erythrocyte distribution width (RBC) [Ratio] 13.2 % Normal 11.5 - 14.5 [facility] Comment on above: Performed By: #### C BCDF #### [facility] [address] [place] [address] Hematocrit (Bld) [Volume fraction] 43.7 % Normal 41.0 - 52.0 [facility] Comment on above: Performed By: #### C BCDF #### [facility] [address] [place] [address] Hemoglobin (Bld) [Mass/Vol] 14.7 g/dL Normal 13.5 - 17.5 [facility] Comment on above: Performed By: #### C BCDF #### [facility] [address] [place] [address] Lymphocytes (Bld) [#/Vol] 1.52 10*3/uL Normal 1.20 - 4.80 [facility] Comment on above: Performed By: #### C BCDF #### [facility] [address] [place] [address] Lymphocytes/100 WBC (Bld) 42.7 % Normal 13.0 - 44.0 [facility] Comment on above: Performed By: #### C BCDF #### [facility] [address] [place] [address] MCHC (RBC) [Mass/Vol] 33.6 g/dL Normal 32.0 - 36.0 [facility] Comment on above: Performed By: #### C BCDF #### [facility] [address] [place] [address] MCV (RBC) [Entitic vol] 96 fL Normal 80 - 100 [facility] Comment on above: Performed By: #### C BCDF #### [facility] [address] [place] [address] Monocytes (Bld) [#/Vol] 0.59 10*3/uL Normal 0.10 - 1.00 [facility] Comment on above: Performed By: #### C BCDF #### [facility] [address] [place] [address] Monocytes/100 WBC (Bld) 16.6 % Normal 2.0 - 10.0 [facility] Comment on above: Performed By: #### C BCDF #### [facility] [address] [place] [address] Neutrophils (Bld) [#/Vol] 1.35 10*3/uL Normal 1.20 - 7.70 [facility] Comment on above: Performed By: #### C BCDF #### [facility] [address] [place] [address] Neutrophils/100 WBC (Bld) 37.9 % Normal 40.0 - 80.0 [facility] Comment on above: Performed By: #### C BCDF #### [facility] [address] [place] [address] NUCLEATED RBC 0.0 /100 WBC Normal 0.0-0.0 [facility] Comment on above: Performed By: #### C BCDF #### [facility] [address] [place] [address] Platelets (Bld) [#/Vol] 253 10*3/uL Normal 150 - 450 [facility] Comment on above: Performed By: #### C BCDF #### [facility] [address] [place] [address] RBC 4.53 x10E12/L Normal 4.50 - 5.90 [facility] Comment on above: Performed By: #### C BCDF #### [facility] [address] [place] [address] WBC (Bld) [#/Vol] 3.6 10*3/uL Low 4.4 - 11.3 [facility] Comment on above: Performed By: #### C BCDF #### [facility] [address] [place] [address] CREATININEon 01-04-2022 Creatinine [Mass/Vol] 0.79 mg/dL Normal 0.50 - 1.30 [facility] Comment on above: Performed By: #### C REAT #### [facility] [address] [place] [address] eGFR MALE >90 Normal >90 [facility] Comment on above: Result Comment: CALC ULATIONS OF ESTIMATED GFR ARE PERFORMED USING THE 2020 CKD-EPI STUDY REFIT EQUATION WITHOUT THE RACE VARIABLE FOR THE IDMS-TRACEABLE CREATININE METHODS. https://jasn.asnjournals.org/content/early//ASN.176923673 8 Performed By: #### C REAT #### [facility] [address] [place] [address] Complete Blood Count + Diffe reinaldo 01-04-2022 Basophils/100 WBC (Bld) 0.8 % 0.0 - 2.0 [employer] [facility] [employer] Work Phone: Erythrocyte distribution width (RBC) [Ratio] 13.2 % See Below [employer] [facility] Work Phone: Comment on above: Reference Range: 11. 5 - 14.5 Hematocrit (Bld) [Volume fraction] 43.7 % See Below [employer] [facility] [employer] Work Phone: Comment on above: Reference Range: 41. 0 - 52.0 Hemoglobin (Bld) [Mass/Vol] 14.7 g/dL See Below [employer] [facility] [employer] Work Phone: Comment on above: Reference Range: 13. 5 - 17.5 Lymphocytes/100 WBC (Bld) 42.7 % See Below [employer] [facility] [employer] Work Phone: Comment on above: Reference Range: 13. 0 - 44.0 MCHC (RBC) [Mass/Vol] 33.6 g/dL See Below [employer] [facility] [employer] Work Phone: Comment on above: Reference Range: 32. 0 - 36.0 MCV (RBC) [Entitic vol] 96 fL 80 - 100 [employer] [facility] [employer] Work Phone: Monocytes/100 WBC (Bld) 16.6 % 2.0 - 10.0 [employer] [facility] [employer] Work Phone: Neutrophils/100 WBC (Bld) 37.9 % See Below [employer] [facility] Work Phone: Comment on above: Reference Range: 40. 0 - 80.0 Platelets (Bld) [#/Vol] 253 10*3/uL 150 - 450 [employer] [facility] Work Phone: RBC (Bld) [#/Vol] 4.53 {x10E12/L} See Below [employer] [facility] Work Phone: Comment on above: Reference Range: 4.5 0 - 5.90 WBC (Bld) [#/Vol] 3.6 10*3/uL below low threshold 4.4 - 11.3 [employer] [facility] Work Phone: Complete Blood Count + Differential 0.03 {x10E9/L} See Below [employer] [facility] Work Phone: Comment on above: Reference Range: 0.0 0 - 0.10 Complete Blood Count + Differential 0.07 {x10E9/L} See Below [employer] [facility] Work Phone: Comment on above: Reference Range: 0.0 0 - 0.70 Complete Blood Count + Differential 0.59 {x10E9/L} See Below [facility] [employer] Work Phone: Comment on above: Reference Range: 0.1 0 - 1.00 Complete Blood Count + Differential 1.52 {x10E9/L} See Below [employer] [facility] Work Phone: Comment on above: Reference Range: 1.2 0 - 4.80 Complete Blood Count + Differential 1.35 {x10E9/L} See Below [employer] [facility] Work Phone: Comment on above: Reference Range: 1.2 0 - 7.70 Complete Blood Count + Differential 2.0 % 0.0 - 6.0 [employer] [facility] Work Phone: Complete Blood Count + Differential 0.0 % 0.0 - 0.9 [facility] Work Phone: Comment on above: Immature Granulocyte Count (IG) includes promyelocytes, myelocytes and metamyelocytes but does not include bands. Percent differential counts (%) should be interpreted in the context of the absolute cell counts (cells/L). Complete Blood Count + Differential 0.0 {/100_WBC} 0.0-0.0 [facility] Work Phone: Creatinine, Serumon 01-05-20 Creatinine [Mass/Vol] 0.79 mg/dL See Below [facility] Work Phone: Comment on above: Reference Range: 0.5 0 - 1.30 Creatinine, Serum >90 >90 [facility] Work Phone: Comment on above: CALCULATIONS OF OLEGARIO MATED GFR ARE PERFORMED USING THE 2020 CKD-EPI STUDY REFIT EQUATION WITHOUT THE RACE VARIABLE FOR THE IDMS-TRACEABLE CREATININE METHODS.https://jasn.asnjournals.org/content//ASN.2 101809365 Follow Up (Rheumatology)on 01-04-2022 Follow Up (Rheumatology) Diagnoses/Problems Assessed Rheumatoid arthritis with rheumatoid factor of multiple sites without organ or systems involvement (714.0) (M05.79) Long-term current use of tofacitinib (V58.69) (Z79.899) COVID-19 vaccine series not completed (V64.00) (Z28.9,Z28.311) Influenza vaccination not up to date (V49.89) (Z78.9) History of Rheumatoid nodules (714.0) (M06.30) Orders Rheumatoid arthritis with rheumatoid factor of multiple sites without organ or systems involvement Renew: Xeljanz XR 11 MG Oral Tablet Extended Release 24 Hour; Take 1 tablet daily Rx By: Sidney Beckham; Dispense: 90 Days ; #:90 Tablet; Refill: 3;For: Rheumatoid arthritis with rheumatoid factor of multiple sites without organ or systems involvement; KIRTI = N; Verified Transmission to SPECIALTY PHARMACY; Msg to Pharmacy: JIL approved through 01/06/22, per insurance, pt must fill with [facility]; Last Updated By: Lisbet Bird; 01/04/2022 10:13:18 AM; COUPON: Available Avoid alcoholic beverages.; Status:Complete; Done: 04Jan2022 Ordered; For:Rheumatoid arthritis with rheumatoid factor of multiple sites without organ or systems involvement; Ordered By:Sidney Beckham; Albumin, Serum; Status:In Progress - Specimen/Data Collected; Done: [id number] Perform:Lab Services - Lab To Draw (Blood Test); Due:57Mlt1188;Ordered; For:Rheumatoid arthritis with rheumatoid factor of multiple sites without organ or systems involvement; Ordered By:Sidney Beckham; Begin a limited exercise program.; Status:Complete; Done: 04Jan2022 Ordered; For:Rheumatoid arthritis with rheumatoid factor of multiple sites without organ or systems involvement; Ordered By:Sidney Beckham; ALT - Alanine Aminotransferase, Serum; Status:In Progress - Specimen/Data Collected; Done: [id number] Perform:Lab Services - Lab To Draw (Blood Test); Due:31Nfj2118;Ordered; For:Rheumatoid arthritis with rheumatoid factor of multiple sites without organ or systems involvement; Ordered By:Sidnye Beckham; Decreasing the stress in your life may help your condition improve.; Status:Complete; Done: 04Jan2022 Ordered; For:Rheumatoid arthritis with rheumatoid factor of multiple sites without organ or systems involvement; Ordered By:Sidney Beckham; AST; Status:In Progress - Specimen/Data Collected; Done: 18Okl8608 Perform:Lab Services - Lab To Draw (Blood Test); Due:86Hzg5057;Ordered; For:Rheumatoid arthritis with rheumatoid factor of multiple sites without organ or systems involvement; Ordered By:Sidney Beckham; Warm baths may help the discomfort.; Status:Complete; Done: 79Nyz4305 Ordered; For:Rheumatoid arthritis with rheumatoid factor of multiple sites without organ or systems involvement; Ordered By:Sidney Beckham; Blood Urea Nitrogen, Serum; Status:In Progress - Specimen/Data Collected; Done: 15Kvj2487 Perform:Lab Services - Lab To Draw (Blood Test); Due:64Tfd2035;Ordered; For:Rheumatoid arthritis with rheumatoid factor of multiple sites without organ or systems involvement; Ordered By:Sidney Beckham; We suggest that you do gentle exercise that does not stress your joints.; Status:Complete; Done: 26Abj9297 Ordered; For:Rheumatoid arthritis with rheumatoid factor of multiple sites without organ or systems involvement; Ordered By:Sidney Beckham; C Reactive Protein, Serum; Status:In Progress - Specimen/Data Collected; Done: 42Bab1908 Perform:Lab Services - Lab To Draw (Blood Test); Due:44Qry1025;Ordered; For:Rheumatoid arthritis with rheumatoid factor of multiple sites without organ or systems involvement; Ordered By:Sidney Beckham; You may apply heat using a heating pad turned on low or medium.; Status:Complete; Done: 22Rkg8735 Ordered; For:Rheumatoid arthritis with rheumatoid factor of multiple sites without organ or systems involvement; Ordered By:Sidney Beckham; Complete Blood Count + Differential; Status:In Progress - Specimen/Data Collected; Done: 56Qcw1651 Perform:Lab Services - Lab To Draw (Blood Test); Due:63Xto6862;Ordered; For:Rheumatoid arthritis with rheumatoid factor of multiple sites without organ or systems involvement; Ordered By:Sidney Beckham; Creatinine, Serum; Status:In Progress - Specimen/Data Collected; Done: 04Yxx0068 Perform:Lab Services - Lab To Draw (Blood Test); Due:87Qla3722;Ordered; For:Rheumatoid arthritis with rheumatoid factor of multiple sites without organ or systems involvement; Ordered By:Sidney Beckham; Sedimentation Rate, Erythrocyte; Status:In Progress - Specimen/Data Collected; Done: 98Mkx2646 Perform:Lab Services - Lab To Draw (Blood Test); Due:16Jnp0487;Ordered; For:Rheumatoid arthritis with rheumatoid factor of multiple sites without organ or systems involvement; Ordered By:Sidney Beckham; Patient Discussion/Summary It was a pleasure seeing you today Please call if symptoms worsen Follow up in 3-4 months we will notify you of your results by phone, mail or through the patient portal. Please call if you don't receive your test (more content not included)... Normal [facility] - Chemistry and C hemistry - challengeon 01-04-2022 AST With P-5'-P [Catalytic activity/Vol] 32 U/L 9 - 39 [facility] Work Phone: SEDIMENTATION RATE, ERYTHROC YTEon 01-04-2022 SEDIMENTATION RATE, ERYTHROCYTE 4 mm/h Normal 0 - 20 [facility] Comment on above: Performed By: #### E SRWS #### [facility] [address] [place] [address] Sedimentation Rate, Erythroc yteon 01-04-2022 ESR (Bld) [Velocity] 4 mm/h 0 - 20 [facility] Work Phone: Tobacco Screening.on 022 Fall risk assessment a) No falls within the last year [facility] Work Phone: Tobacco use status [facility] b) No [facility] Work Phone: UREA NITROGENon 01-04-2022 Urea nitrogen [Mass/Vol] 13 mg/dL Normal 6 - 23 [facility] Comment on above: Performed By: #### U ASHELY #### [facility] [address] 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 Patient stated his discomfort and pain has improved overall since his last visit. He stated he got relief from his last adjustment and treatment. Patient stated he has had decreased pain and increased his abilities. He still gets tightness and restriction, but improved ROM. Wilver has a history of RA. He denies any numbness,tingling and radiculopathy. Location: Neck - Back Duration: Intermittent Aggravating or associated factors: cold, damp weather Relieving factors: hot shower Pain Quality: aching, dull and other (stiffness) Exam Musc General: Yes normal gait, joint tenderness and decreased range of motion; No normal posture or muscle weakness Cervical Spine: Yes loss of normal cervical lordosis, Yes cervical muscular tenderness (slightly improved), Yes cervical spasm left greater than right lower trapezius and paracervical muscles and Yes misalignment misalignment: C4, C5, C6 and C7 Thoracic/Lumber: No thoracic and lumbar spine normal to inspection (left scapular flaring), Yes paraspinal tenderness (slightly improved) bilaterally in the upper thoracic, in the mid thoracic and in the lower lumbar, Yes scoliosis (left lumbar), Yes thoraco-lumbar spasm on the left greater than right (paraspinal (T3-L5), QL, trap) and Yes misalignment T2, T3, T4, L3, L4, L5 and LIL Sacroiliac joints: on the left tender to palpation Office Procedures Procedures - Chiropractic Procedures Manipulation: Cervical C4 and C7, Lumbar L4, Thoracic T4 and Pelvis LIL Manipulation: 3-4 regions Electronic Stimulation: Yes Electrical Stimulation: Lumbar 15 mins (21) mA Therapy Performed by:: Kianna Centeno Traction, Mechanical: Yes Patient Response: positive Assessment and Plan Assessment and Plan (1) Segmental and somatic dysfunction of cervical region: Status: Acute Orders: Orders: Chiropractic Treatments Today (2) Rheumatoid arthritis: Status: Chronic Qualifiers: Rheumatoid arthritis location: unspecified site Rheumatoid factor presence: unspecified presence Qualified Code(s): M06.9 - Rheumatoid arthritis, unspecified Orders: Orders: Chiropractic Treatments Today (3) Segmental and somatic dysfunction of pelvic region: Status: Acute Orders: Orders: Chiropractic Treatments Today (4) Segmental and somatic dysfunction of lumbar region: Status: Acute Orders: Orders: Chiropractic Treatments Today (5) Segmental and somatic dysfunction of thoracic region: Status: Acute Orders: Orders: Chiropractic Treatments Today (6) Scoliosis of lumbar spine: Status: Acute Qualifiers: Idiopathic scoliosis type: other Scoliosis type: idiopathic Qualified Code(s): M41.26 - Other idiopathic scoliosis, lumbar region Orders: Orders: Chiropractic Treatments Today Plan Details Additional Comments: Patient was treated without incident. He is showing positive progress. Continue care. Goals Barriers: Goals Decrease pain Decrease spasm Improve ROM Barriers RA Scoliosis(levo) Follow Up: 1x/wk/2wks (1 of 2) Coding Level of Care Code No Charge Diagnoses Segmental and somatic dysfunction of cervical region M99.01 Rheumatoid arthritis M06.9 Rheumatoid arthritis location: unspecified site Rheumatoid factor presence: unspecified presence Segmental and somatic dysfunction of pelvic region M99.05 Segmental and somatic dysfunction of lumbar region M99.03 Segmental and somatic dysfunction of thoracic region M99.02 Scoliosis of lumbar spine M41.26 Idiopathic scoliosis type: other Scoliosis type: idiopathic CPT Codes Procedures - Manipulation: 3-4 regions (24160) Procedures - Electronic Stimulation: Yes (41520) (more content not included)... [facility] Chiropractic Reporton 2021 Chiropractic Report [facility] [place] [address] OFFICE VISIT Date of Service: 07/05/21 MR#: [id number] Acct: [id number] Name: MARVA LUU Rep #: [id number] : 1965 Provider: WHIT Green Age/Sex: 56/M Location: [facility] [place] Status: Signed Intake Intake Visit Reasons: Back Pain Chief Complaint: Back Accompanied by: Self Is patient in pain?: Yes Allergies No Known Allergies Allergy (Verified 12/28/17 14:30) [facility] Medical History Arthritis Cataracts, both eyes Rheumatoid arthritis Surgical History No history of previous surgery Social History Smoking Status: Former smoker alcohol intake: current details: 6 pack beer weekly substance use type: does not use what type of physical activity do you participate in: none HPI Back Pain Chief Complaint: Neck - Back pain Visit Number: 6 Details: Details: Marva Luu 55 years old M is here today for improving pain in his neck and back. Patient stated he tweaked something in his low back last night, but it has calmed down slightly today. Patient stated he has had decreased pain and increased his abilities. Patient stated he is experiencing mild discomfort. He still gets tightness and restriction, but improved ROM. Wilver has a history of RA. He denies any numbness,tingling and radiculopathy. Location: Neck - Back Duration: Intermittent Aggravating or associated factors: cold, damp weather Relieving factors: hot shower Pain Quality: aching, dull and other (stiffness) Exam Musc General: Yes normal gait, joint tenderness and decreased range of motion; No normal posture or muscle weakness Cervical Spine: Yes loss of normal cervical lordosis, Yes cervical muscular tenderness (slightly improved), Yes cervical spasm left greater than right lower trapezius and paracervical muscles and Yes misalignment misalignment: C4, C5, C6 and C7 Thoracic/Lumber: No thoracic and lumbar spine normal to inspection (left scapular flaring), Yes paraspinal tenderness (slightly improved) bilaterally in the upper thoracic, in the mid thoracic and in the lower lumbar, Yes scoliosis (left lumbar), Yes thoraco-lumbar spasm on the left greater than right (paraspinal (T3-L5), QL, trap) and Yes misalignment T2, T3, T4, L3, L4, L5 and LIL Sacroiliac joints: on the left tender to palpation Office Procedures Procedures - Chiropractic Procedures Manipulation: Cervical C4 and C7, Lumbar L4, Thoracic T4 and Pelvis LIL Manipulation: 3-4 regions Electronic Stimulation: Yes Electrical Stimulation: Lumbar 15 mins (21) mA Therapy Performed by:: Kianna Centeno Traction, Mechanical: Yes Patient Response: positive Assessment and Plan Assessment and Plan (1) Segmental and somatic dysfunction of cervical region: Status: Acute Orders: Orders: Chiropractic Treatments Today (2) Rheumatoid arthritis: Status: Chronic Qualifiers: Rheumatoid arthritis location: unspecified site Rheumatoid factor presence: unspecified presence Qualified Code(s): M06.9 - Rheumatoid arthritis, unspecified Orders: Orders: Chiropractic Treatments Today (3) Segmental and somatic dysfunction of pelvic region: Status: Acute Orders: Orders: Chiropractic Treatments Today (4) Segmental and somatic dysfunction of lumbar region: Status: Acute Orders: Orders: Chiropractic Treatments Today (5) Segmental and somatic dysfunction of thoracic region: Status: Acute Orders: Orders: Chiropractic Treatments Today (6) Scoliosis of lumbar spine: Status: Acute Qualifiers: Idiopathic scoliosis type: other Scoliosis type: idiopathic Qualified Code(s): M41.26 - Other idiopathic scoliosis, lumbar region Orders: Orders: Chiropractic Treatments Today Plan Details Additional Comments: Patient was treated without incident. Continue care. Goals Barriers: Goals Decrease pain Decrease spasm Improve ROM Barriers RA Scoliosis(levo) Follow Up: 2x/wk/3wk (6 of 6) 1x/wk/2wks (0/2) Coding Level of Care Code No Charge Diagnoses Segmental and somatic dysfunction of cervical region M99.01 Rheumatoid arthritis M06.9 Rheumatoid arthritis location: unspecified site Rheumatoid factor presence: unspecified presence Segmental and somatic dysfunction of pelvic region M99.05 Segmental and somatic dysfunction of lumbar region M99.03 Segmental and somatic dysfunction of thoracic region M99.02 Scoliosis of lumbar spine M41.26 Idiopathic scoliosis type: other Scoliosis type: idiopathic CPT Codes Procedures - Manipulation: 3-4 regions (40265) Procedures - Electronic Stimulation: Yes (56203) Procedures - Traction, Mechanical: (more content not included)... Normal [facility] Chiropractic Reporton 2021 Chiropractic Report [facility], [place] [address] OFFICE VISIT Date of Service: 06/29/21 MR#: [id number] Acct: [id number] Name: MARVA LUU Rep #: [id number] : 1965 Provider: WHIT Green Age/Sex: 56/M Location: [facility] [place] Status: Signed Intake Intake Visit Reasons: Back Pain Chief Complaint: Back Light Oil Operator Required: No Accompanied by: Self Is patient in pain?: No Allergies No Known Allergies Allergy (Verified 12/28/17 14:30) [facility] Medical History Arthritis Cataracts, both eyes Rheumatoid arthritis Surgical History No history of previous surgery Social History Smoking Status: Former smoker alcohol intake: current details: 6 pack beer weekly substance use type: does not use what type of physical activity do you participate in: none HPI Back Pain Chief Complaint: Neck - Back pain Visit Number: 4 Details: Details: Marva Luu 55 years old M is here today for improving pain in his neck and back. Patient stated he tweaked something in his low back last night, but it has calmed down slightly today. Patient stated he has had decreased pain and increased his abilities. Patient stated he is experiencing mild discomfort. He still gets tightness and restriction, but improved ROM. Wilver has a history of RA. He denies any numbness,tingling and radiculopathy. Location: Neck - Back Duration: Intermittent Aggravating or associated factors: cold, damp weather Relieving factors: hot shower Pain Quality: aching, dull and other (stiffness) Exam Musc General: Yes normal gait, joint tenderness and decreased range of motion; No normal posture or muscle weakness Cervical Spine: Yes loss of normal cervical lordosis, Yes cervical muscular tenderness (slightly improved), Yes cervical spasm left greater than right lower trapezius and paracervical muscles and Yes misalignment misalignment: C4, C5, C6 and C7 Thoracic/Lumber: No thoracic and lumbar spine normal to inspection (left scapular flaring), Yes paraspinal tenderness (slightly improved) bilaterally in the upper thoracic, in the mid thoracic and in the lower lumbar, Yes scoliosis (left lumbar), Yes thoraco-lumbar spasm on the left greater than right (paraspinal (T3-L5), QL, trap) and Yes misalignment T2, T3, T4, L3, L4, L5 and LIL Sacroiliac joints: on the left tender to palpation Office Procedures Procedures - Chiropractic Procedures Manipulation: Cervical C4 and C7, Lumbar L4, Thoracic T4 and Pelvis LIL Manipulation: 3-4 regions Electronic Stimulation: Yes Electrical Stimulation: Cervical 15 mins (20) mA Therapy Performed by:: Kianna Centeno Traction, Mechanical: Yes Patient Response: positive Assessment and Plan Assessment and Plan (1) Segmental and somatic dysfunction of cervical region: Status: Acute Orders: Orders: Chiropractic Treatments Today (2) Rheumatoid arthritis: Status: Chronic Qualifiers: Rheumatoid arthritis location: unspecified site Rheumatoid factor presence: unspecified presence Qualified Code(s): M06.9 - Rheumatoid arthritis, unspecified Orders: Orders: Chiropractic Treatments Today (3) Segmental and somatic dysfunction of pelvic region: Status: Acute Orders: Orders: Chiropractic Treatments Today (4) Segmental and somatic dysfunction of lumbar region: Status: Acute Orders: Orders: Chiropractic Treatments Today (5) Segmental and somatic dysfunction of thoracic region: Status: Acute Orders: Orders: Chiropractic Treatments Today (6) Scoliosis of lumbar spine: Status: Acute Qualifiers: Idiopathic scoliosis type: other Scoliosis type: idiopathic Qualified Code(s): M41.26 - Other idiopathic scoliosis, lumbar region Orders: Orders: Chiropractic Treatments Today Plan Details Additional Comments: Patient was treated without incident. Continue care. Goals Barriers: Goals Decrease pain Decrease spasm Improve ROM Barriers RA Scoliosis(levo) Follow Up: 2x/wk/3wks (5 of 6) Coding Level of Care Code No Charge Diagnoses Segmental and somatic dysfunction of cervical region M99.01 Rheumatoid arthritis M06.9 Rheumatoid arthritis location: unspecified site Rheumatoid factor presence: unspecified presence Segmental and somatic dysfunction of pelvic region M99.05 Segmental and somatic dysfunction of lumbar region M99.03 Segmental and somatic dysfunction of thoracic region M99.02 Scoliosis of lumbar spine M41.26 Idiopathic scoliosis type: other Scoliosis type: idiopathic CPT Codes Procedures - Manipulation: 3-4 regions (58225) Procedures - Electronic Stimulation: Yes (49816) Procedures - Traction, M (more content not included)... Normal [facility] Chirop[facility]ic Reporton 2021 Chiropractic Report [facility] [address] [place] [address] OFFICE VISIT Date of Service: 06/27/21 MR#: [id number] Acct: [id number] Name: MARVA LUU Rep #: [id number] : 1965 Provider: WHIT Green Age/Sex: 56/M Location: [facility] [place] Status: Signed Intake Intake Visit Reasons: Back Pain Chief Complaint: Back Light Oil Operator Required: No Accompanied by: Self Is patient in pain?: Yes (Left side low back) Pain scale (1-10): 5 Allergies No Known Allergies Allergy (Verified 12/28/17 14:30) [facility] Medical History Arthritis Cataracts, both eyes Rheumatoid arthritis Surgical History No history of previous surgery Social History Smoking Status: Former smoker alcohol intake: current details: 6 pack beer weekly substance use type: does not use what type of physical activity do you participate in: none HPI Back Pain Chief Complaint: Neck - Back pain Visit Number: 3 Details: Details: Marva Luu 55 years old M is here today for improving pain in his neck and back. Patient stated he is experiencing little to no pain in his neck today. Patient stated he has had decreased pain and increased his abilities. Patient stated he is experiencing mild discomfort. He still gets tightness and restriction, but improved ROM. Bill has a history of RA. He denies any numbness,tingling and radiculopathy. Location: Neck - Back Duration: Intermittent Aggravating or associated factors: cold, damp weather Relieving factors: hot shower Pain Quality: aching, dull and other (stiffness) Exam Musc General: Yes normal gait, joint tenderness and decreased range of motion; No normal posture or muscle weakness Cervical Spine: Yes loss of normal cervical lordosis, Yes cervical muscular tenderness (slightly improved), Yes cervical spasm left greater than right lower trapezius and paracervical muscles and Yes misalignment misalignment: C4, C5, C6 and C7 Thoracic/Lumber: No thoracic and lumbar spine normal to inspection (left scapular flaring), Yes paraspinal tenderness (slightly improved) bilaterally in the upper thoracic, in the mid thoracic and in the lower lumbar, Yes scoliosis (left lumbar), Yes thoraco-lumbar spasm on the left greater than right (paraspinal (T3-L5), QL, trap) and Yes misalignment T2, T3, T4, L3, L4, L5 and LIL Sacroiliac joints: on the left tender to palpation Office Procedures Procedures - Chiropractic Procedures Manipulation: Cervical C4 and C7, Lumbar L4, Thoracic T3 and Pelvis LIL Manipulation: 3-4 regions Electronic Stimulation: Yes Electrical Stimulation: Cervical (20) Therapy Performed by:: Kianna Centeno Traction, Mechanical: Yes Patient Response: positive Assessment and Plan Assessment and Plan (1) Segmental and somatic dysfunction of cervical region: Status: Acute Orders: Orders: Chiropractic Treatments Today (2) Rheumatoid arthritis: Status: Chronic Qualifiers: Rheumatoid arthritis location: unspecified site Rheumatoid factor presence: unspecified presence Qualified Code(s): M06.9 - Rheumatoid arthritis, unspecified Orders: Orders: Chiropractic Treatments Today (3) Segmental and somatic dysfunction of pelvic region: Status: Acute Orders: Orders: Chiropractic Treatments Today (4) Segmental and somatic dysfunction of lumbar region: Status: Acute Orders: Orders: Chiropractic Treatments Today (5) Segmental and somatic dysfunction of thoracic region: Status: Acute Orders: Orders: Chiropractic Treatments Today (6) Scoliosis of lumbar spine: Status: Acute Qualifiers: Idiopathic scoliosis type: other Scoliosis type: idiopathic Qualified Code(s): M41.26 - Other idiopathic scoliosis, lumbar region Orders: Orders: Chiropractic Treatments Today Plan Details Additional Comments: Patient was treated without incident. Continue care. Goals Barriers: Goals Decrease pain Decrease spasm Improve ROM Barriers RA Scoliosis(levo) Follow Up: PRN Coding Level of Care Code No Charge Diagnoses Segmental and somatic dysfunction of cervical region M99.01 Rheumatoid arthritis M06.9 Rheumatoid arthritis location: unspecified site Rheumatoid factor presence: unspecified presence Segmental and somatic dysfunction of pelvic region M99.05 Segmental and somatic dysfunction of lumbar region M99.03 Segmental and somatic dysfunction of thoracic region M99.02 Scoliosis of lumbar spine M41.26 Idiopathic scoliosis type: other Scoliosis type: idiopathic CPT Codes Procedures - Manipulation: 3-4 regions (99919) Procedures - Electronic Stimulation: Yes (38053) Procedures - Traction, Mechanical: Yes ( (more content not included)... Normal [facility] Radiology Reporton 2 Radiology Report [facility] [address] [place] [address] 06/23/21 1503 MR#: [id number] Acct: [id number] Name: MARVA LUU Rep #: [id number] : 1965 55 From: Karol Thorne D.C. PCP: Dr. Malissa Dickey MD Status:DEP AMB Location[place] [facility] [place] Impression Impression: Patients Name: MARVA LUU : 1965 Views Submitted: a routine lumbar series was accomplished on 06/13/21 at [facility]. The lumbar series reveals in the AP view a moderate left rotatory curvature of the lumbar spine, with right spinous process rotation from L1-L5. There is posterior rotation of the right adia on sacrum. Sacrum is inferior on the right. Sclerosis is noted at the inferior aspect of the bilateral SI joints. The lateral lumbar view demonstrates a lordotic lumbar spine. The disc spaces are mildly reduced at L3/L4 and L5/S1. No indication of instability or fracture. Soft tissue structures are unremarkable. IMPRESSION: 1. Levoscoliosis. 2. DDD, as detailed above. Coding Level of Care Code Spine Lumbarsacral 2-3 views 06/23/21 1555 Date Karol Thorne D.C. Signed [facility] Radiology Report [facility] [address] [place] [address] 06/23/21 1458 MR#: [id number] Acct: [id number] Name: MARVA LUU Rep #: [id number] : 1965 55 From: Karol Thorne D.C. PCP: Dr. Malissa Dickey MD Status:DEP AMB Location: [facility] [place] [place] Report Impression Impression: Patients Name: MARVA LUU : 1965 Views Submitted: a routine cervical series was accomplished on 06/13/21 at [facility]. The AP view revealed right head translation. There is left spinous rotation from C2-T2. Soft tissue structures are unremarkable. No indication of instability or fracture. The lateral view revealed decreased lordosis. Mod-severe degenerative changes are visible from C4-C7 with sclerosis and disc degeneration. IMPRESSION: 1. DDD, as detailed above. Coding Level of Care Code Spine Cervical 2-3 views 06/23/21 1503 Date Karol Thorne D.C. Signed [facility] Chirop[facility] Reporton 2021 Chiropractic Report [facility] [address] [place] [address] OFFICE VISIT Date of Service: 06/22/21 MR#: [id number] Acct: [id number] Name: MARVA LUU Rep #: [id number] : 1965 Provider: WHIT Green Age/Sex: 55/M Location: [facility] [place] Status: Signed Intake Intake Visit Reasons: Back Pain Chief Complaint: Back and Neck pain Accompanied by: Self Is patient in pain?: No Allergies No Known Allergies Allergy (Verified 12/28/17 14:30) [facility] Medical History Arthritis Cataracts, both eyes Rheumatoid arthritis Surgical History No history of previous surgery Social History Smoking Status: Former smoker alcohol intake: current details: 6 pack beer weekly substance use type: does not use what type of physical activity do you participate in: none HPI Back Pain Chief Complaint: Neck - Back pain Visit Number: 2 Details: Details: Marva Luu 55 years old M is here today for improving pain in his neck and back. Patient stated he has had decreased his pain and increased his abilities. Patient stated he is experiencing mild discomfort. He still gets tightness and restriction, but improved ROM. Wilver has a history of RA. He denies any numbness,tingling and radiculopathy. Location: Neck - Back Duration: Intermittent Aggravating or associated factors: cold, damp weather Relieving factors: hot shower Pain Quality: aching, dull and other (stiffness) Exam Musc General: Yes normal gait, joint tenderness and decreased range of motion; No normal posture or muscle weakness Cervical Spine: Yes loss of normal cervical lordosis, Yes cervical muscular tenderness (slightly improved), Yes cervical spasm left greater than right lower trapezius and paracervical muscles and Yes misalignment misalignment: C4, C5, C6 and C7 Thoracic/Lumber: No thoracic and lumbar spine normal to inspection (left scapular flaring), Yes paraspinal tenderness (slightly improved) bilaterally in the upper thoracic, in the mid thoracic and in the lower lumbar, Yes scoliosis (left lumbar), Yes thoraco-lumbar spasm on the left greater than right (paraspinal (T3-L5), QL, trap) and Yes misalignment T2, T3, T4, L3, L4, L5 and LIL Sacroiliac joints: on the left tender to palpation Office Procedures Procedures - Chiropractic Procedures Manipulation: Cervical C4 and C7, Lumbar L4, Thoracic T3 and Pelvis LIL Manipulation: 3-4 regions Electronic Stimulation: Yes Electrical Stimulation: Cervical 15 mins (20) mA and Lumbar Therapy Performed by:: Kianna Villarreal, Mechanical: Yes Patient Response: positive Assessment and Plan Assessment and Plan (1) Segmental and somatic dysfunction of cervical region: Status: Acute Orders: Orders: Chiropractic Treatments Today (2) Rheumatoid arthritis: Status: Chronic Qualifiers: Rheumatoid arthritis location: unspecified site Rheumatoid factor presence: unspecified presence Qualified Code(s): M06.9 - Rheumatoid arthritis, unspecified Orders: Orders: Chiropractic Treatments Today (3) Segmental and somatic dysfunction of pelvic region: Status: Acute Orders: Orders: Chiropractic Treatments Today (4) Segmental and somatic dysfunction of lumbar region: Status: Acute Orders: Orders: Chiropractic Treatments Today (5) Segmental and somatic dysfunction of thoracic region: Status: Acute Orders: Orders: Chiropractic Treatments Today (6) Scoliosis of lumbar spine: Status: Acute Qualifiers: Idiopathic scoliosis type: other Scoliosis type: idiopathic Qualified Code(s): M41.26 - Other idiopathic scoliosis, lumbar region Orders: Orders: Chiropractic Treatments Today Plan Details Additional Comments: Patient was treated without incident. He is showing improvement, continue care. Goals Barriers: Goals Decrease pain Decrease spasm Improve ROM Barriers RA Scoliosis(levo) Follow Up: 2x/wk/3wk (2 of 6) Coding Level of Care Code No Charge Diagnoses Segmental and somatic dysfunction of cervical region M99.01 Rheumatoid arthritis M06.9 Rheumatoid arthritis location: unspecified site Rheumatoid factor presence: unspecified presence Segmental and somatic dysfunction of pelvic region M99.05 Segmental and somatic dysfunction of lumbar region M99.03 Segmental and somatic dysfunction of thoracic region M99.02 Scoliosis of lumbar spine M41.26 Idiopathic scoliosis type: other Scoliosis type: idiopathic CPT Codes Procedures - Manipulation: 3-4 regions (27345) Procedures - Electronic Stimulation: Yes (00969) Procedures - Traction, Mechanical: Yes (85309) 06/22/21 1001 Date (more content not included)... [facility] Reporton 2021 Chiropractic Report [facility] [address] [place] [address] OFFICE VISIT Date of Service: 06/20/21 MR#: [id number] Acct: [id number] Name: MARVA LUU Rep #: [id number] : 1965 Provider: WHIT Green Age/Sex: 55/M Location: [facility] [place] Status: Signed Intake Intake Visit Reasons: LBP/NECK PAIN Chief Complaint: Back and Neck pain Allergies No Known Allergies Allergy (Verified 12/28/17 14:30) [facility] Medical History Arthritis Cataracts, both eyes Rheumatoid arthritis Surgical History No history of previous surgery Social History Smoking Status: Former smoker alcohol intake: current details: 6 pack beer weekly substance use type: does not use what type of physical activity do you participate in: none HPI LBP/NECK PAIN Chief Complaint: cervical, lumbar Visit Number: 3 Details: MARVA LUU is a 55 year old M here today for cervical and low back pain. He states that the last adjustment is very effective. He is here today to have the adjustment to prevent the pain from returning. He has been able to do his job easier and sleeping better. Location: cervical, lumbar Duration: intermitent Aggravating or associated factors: lifting, bending Relieving factors: chiro Exam Musc General: Yes normal gait, joint tenderness and decreased range of motion; No normal posture or muscle weakness Cervical Spine: Yes loss of normal cervical lordosis, Yes cervical muscular tenderness (slightly improved), Yes cervical spasm left greater than right lower trapezius and paracervical muscles and Yes misalignment misalignment: C4, C5, C6 and C7 Thoracic/Lumber: No thoracic and lumbar spine normal to inspection (left scapular flaring), Yes paraspinal tenderness (slightly improved) bilaterally in the upper thoracic, in the mid thoracic and in the lower lumbar, Yes thoraco-lumbar spasm on the left greater than right (paraspinal (T3-L5), QL, trap) and Yes misalignment T2, T3, T4, L3, L4, L5 and LIL Sacroiliac joints: on the left tender to palpation Office Procedures Procedures - Chiropractic Procedures Stimulation: with Manipulation: Cervical C4 and C7, Lumbar L4, Thoracic T3 and Pelvis LIL Manipulation: 3-4 regions Electronic Stimulation: Yes Electrical Stimulation: Cervical 15 mins (21) mA and Lumbar 15 mins (21) mA Therapy Performed by:: Dr. Karol Thorne DC Traction, Mechanical: Yes Patient Response: positive Assessment and Plan Assessment and Plan (1) Segmental and somatic dysfunction of cervical region: Status: Acute (2) Rheumatoid arthritis: Status: Chronic Qualifiers: Rheumatoid arthritis location: unspecified site Rheumatoid factor presence: unspecified presence Qualified Code(s): M06.9 - Rheumatoid arthritis, unspecified (3) Segmental and somatic dysfunction of pelvic region: Status: Acute (4) Segmental and somatic dysfunction of lumbar region: Status: Acute (5) Segmental and somatic dysfunction of thoracic region: Status: Acute (6) Scoliosis of lumbar spine: Status: Acute Qualifiers: Idiopathic scoliosis type: other Scoliosis type: idiopathic Qualified Code(s): M41.26 - Other idiopathic scoliosis, lumbar region Orders: Orders: Chiropractic Treatments Today M99.01, M06.9, M99.05, M99.03, M99.02, M41.26 Plan Details Additional Comments: Patient was treated without incident. He is showing positive improvement. Goals Barriers: Goals Decrease pain Decrease spasm Improve ROM Barriers RA Scoliosis(levo) Follow Up: 2x/wk (3 of 6) Coding Level of Care Code No Charge Diagnoses Segmental and somatic dysfunction of cervical region M99.01 Rheumatoid arthritis M06.9 Rheumatoid arthritis location: unspecified site Rheumatoid factor presence: unspecified presence Segmental and somatic dysfunction of pelvic region M99.05 Segmental and somatic dysfunction of lumbar region M99.03 Segmental and somatic dysfunction of thoracic region M99.02 Scoliosis of lumbar spine M41.26 Idiopathic scoliosis type: other Scoliosis type: idiopathic CPT Codes Procedures - Manipulation: 3-4 regions (56014) Procedures - Electronic Stimulation: Yes (69177) Procedures - Traction, Mechanical: Yes (80163) 06/20/21 1020 Date Karol Jordan Signature: Date (if applicable) CC: Normal [facility] Reporton 2021 Chiropractic Report [facility] [address] [place] [address] OFFICE VISIT Date of Service: 06/15/21 MR#: [id number] Acct: [id number] Name: MARVA LUU Rep #: [id number] : 1965 Provider: WHIT Green Age/Sex: 55/M [place] [facility] [place] Status: Signed Intake Intake Visit Reasons: Back Pain Chief Complaint: Back and Neck pain Light Oil Operator Required: No Is patient in pain?: No Allergies No Known Allergies Allergy (Verified 12/28/17 14:30) [facility] Medical History Arthritis Cataracts, both eyes Rheumatoid arthritis Surgical History No history of previous surgery Social History Smoking Status: Former smoker alcohol intake: current details: 6 pack beer weekly substance use type: does not use what type of physical activity do you participate in: none HPI Back Pain Chief Complaint: Neck - Back pain Visit Number: 2 Details: Details: Marva Luu 55 years old M is here today for pain in his neck and back. Patient stated his neck and back pain are 3/10, dull, achy, stiffness and intermittently. He said he occasionally gets numbness in his fingertips, but attributes this to hand arthritis. He denies any injury or spinal surgery. He stated the pain is aggravated by cold and damp weather. He gets relief by a hot shower. Wilver has a history of RA. He denies any tingling and radiculopathy. Location: Neck - Back Duration: Intermittent Aggravating or associated factors: cold, damp weather Relieving factors: hot shower Pain Quality: aching, dull and other (stiffness) Exam Musc General: Yes normal gait, joint tenderness and decreased range of motion; No normal posture or muscle weakness Cervical Spine: Yes loss of normal cervical lordosis, Yes cervical muscular tenderness, Yes pain with cervical ROM with lateral flexion to right, with lateral flexion to left and with extension, Yes cervical spasm left greater than right lower trapezius and paracervical muscles and Yes misalignment misalignment: C4, C5, C6 and C7 Thoracic/Lumber: No thoracic and lumbar spine normal to inspection (left scapular flaring), Yes pain with thoraco-lumbar ROM with forward flexion and other (extension), Yes paraspinal tenderness bilaterally in the upper thoracic, in the mid thoracic and in the lower lumbar, Yes thoraco-lumbar ROM limited with forward flexion, with lateral flexion to the right, with lateral flexion to the left, with rotation to the right and with rotation to the left, Yes thoraco-lumbar spasm on the left greater than right (paraspinal (T3-L5), QL, trap) and Yes misalignment T2, T3, T4, L3, L4, L5 and LIL Sacroiliac joints: on the left tender to palpation Office Procedures Procedures - Chiropractic Procedures Manipulation: Cervical C4 and C7, Lumbar L4, Thoracic T3 and Pelvis LIL Manipulation: 3-4 regions Electronic Stimulation: Yes Electrical Stimulation: Cervical and Lumbar 15 mins (18) mA Therapy Performed by:: Kianna Centeno Traction, Mechanical: Yes Patient Response: positive Assessment and Plan Assessment and Plan (1) Segmental and somatic dysfunction of cervical region: Status: Acute Orders: Orders: Chiropractic Treatments Today (2) Rheumatoid arthritis: Status: Chronic Qualifiers: Rheumatoid arthritis location: unspecified site Rheumatoid factor presence: unspecified presence Qualified Code(s): M06.9 - Rheumatoid arthritis, unspecified Orders: Orders: Chiropractic Treatments Today (3) Segmental and somatic dysfunction of pelvic region: Status: Acute Orders: Orders: Chiropractic Treatments Today (4) Segmental and somatic dysfunction of lumbar region: Status: Acute Orders: Orders: Chiropractic Treatments Today (5) Segmental and somatic dysfunction of thoracic region: Status: Acute Orders: Orders: Chiropractic Treatments Today (6) Scoliosis of lumbar spine: Status: Acute Qualifiers: Scoliosis type: idiopathic Idiopathic scoliosis type: other Qualified Code(s): M41.26 - Other idiopathic scoliosis, lumbar region Plan Details Additional Comments: Xrays findings were reviewed. Patient was treated without incident. Continue with acute care plan. Goals Barriers: Goals Decrease pain Decrease spasm Improve ROM Barriers RA Scoliosis(levo) Follow Up: 2x/wk/3 wk (1 of 6) Coding Level of Care Code No Charge Diagnoses Segmental and somatic dysfunction of cervical region M99.01 Rheumatoid arthritis M06.9 Rheumatoid arthritis location: unspecified site Rheumatoid factor presence: unspecified presence Segmental and somatic dysfunction of pelvic region M99.05 Segmental and somatic dysfunction of lumbar regio (more content not included)... 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 Karol Thorne, WHIT) Arthritis Cataracts, both eyes Rheumatoid arthritis Surgical History (Updated 06/13/21 @ 10:25 by Kianna Centeno) No history of previous surgery Social History (Updated 06/13/21 @ 10:27 by Kianna Centeno) Smoking Status: Former smoker alcohol intake: current details: 6 pack beer weekly substance use type: does not use what type of physical activity do you participate in: none HPI Back Pain Chief Complaint: Neck - Back pain Visit Number: 1 Details: Details: Marva Luu 55 years old M NEW PATIENT is here today for pain in his neck and back. Patient stated his neck and back pain are 3/10, dull, achy, stiffness and intermittently. He said he occasionally gets numbness in his fingertips, but attributes this to hand arthritis. He denies any injury or spinal surgery. He stated the pain is aggravated by cold and damp weather. He gets relief by a hot shower. Bill has a history of RA. He denies any tingling and radiculopathy. Location: Neck - Back Duration: Intermittent Aggravating or associated factors: cold, damp weather Relieving factors: hot shower Pain Quality: aching, dull and other (stiffness) HPI Comments Details: Exam Musc General: Yes normal gait, joint tenderness and decreased range of motion; No normal posture or muscle weakness Cervical Spine: Yes loss of normal cervical lordosis, Yes cervical muscular tenderness bilateral diffuse , Yes pain with cervical ROM with lateral flexion to right, with lateral flexion to left and with extension, Yes cervical spasm left greater than right lower trapezius and paracervical muscles and Yes misalignment misalignment: C4, C5, C6 and C7 Thoracic/Lumber: No thoracic and lumbar spine normal to inspection (left scapular flaring), Yes Lasegue's sign negative, Yes straight leg raise negative bilaterally, Yes pain with thoraco-lumbar ROM with forward flexion and other (extension), Yes paraspinal tenderness bilaterally in the upper thoracic, in the mid thoracic and in the lower lumbar, Yes thoraco-lumbar ROM limited with forward flexion, with lateral flexion to the right, with lateral flexion to the left, with rotation to the right and with rotation to the left, Yes thoraco-lumbar spasm on the left greater than right (paraspinal (T3-L5), QL, trap) and Yes misalignment T2, T3, T4, L3, L4, L5 and LIL Neuro General: patient alert, patient awake, patient oriented x3, normal light touch, pain and propioception and no focal motor deficits Cranial Nerves: CN's II-XI intact bilaterally Cognition: normal cognition Speech: speech normal Gait: normal gait Motor: muscle tone normal throughout Sensory Exam: no sensory deficits noted Ortho Test CERVICAL Compression pain: Negative Distraction pain: relief Ronny's pain: Negative Valsalvas: Negative Shoulder depression pain: Left (+bilaterally) THORACIC Kemps: Negative Chandler: Positive (left thoracic) LUMBAR Kemps: Negative Valsalvas: Negative SLR: Negative Iliac Compression: Negative Office Procedures Procedures - Chiropractic Procedures Electronic Stimulation: Yes Electrical Stimulation: Cervical 15 mins (16) mA Therapy Performed by:: Dr. Karol Thorne DC Traction, Mechanical: Yes Patient Response: positive Assessment and Plan Assessment and Plan (1) Segmental and somatic dysfunction of cervical region: Status: Acute Orders: Orders: Chiropractic Treatments Today Cerv Spine 2 or 3 Views Today (2) Rheumatoid arthritis: Status: Chronic Orders: Orders: Chiropractic Treatments Today Cerv Spine 2 or 3 Views Today (3) Segmental and somatic dysfunction of pelvic region: Status: Acute Orders: Orders: Chiropractic Treatments Today Lumbar Spine 2 or 3 Views Today (4) Segmental and somatic dysfunction of lumbar region: Status: Acute Orders: Orders: Chiropractic Treatments Today Lumbar Spine 2 or 3 Views Today (more content not included)... Normal [facility] ALT - Alanine Aminotransfera se, Serumon 05-27-2021 ALT With P-5'-P [Catalytic activity/Vol] 16 U/L [facility] Work Phone: Comment on above: Patients treated wit h Sulfasalazine may generate falsely decreased results for ALT. Albumin, Serumon 05-27-2021 Albumin BCP dye [Mass/Vol] 4.4 g/dL 3.4 - 5.0 [facility] Work Phone: Blood Urea Nitrogen, Serumon 05-27-2021 Urea nitrogen [Mass/Vol] 20 mg/dL 6 - 23 [employer] [facility] Work Phone: C Reactive Protein, Serumon 05-27-2021 CRP [Mass/Vol] mg/L [employer] [facility] Work Phone: Comment on above: REF VALUE< 1.00 Complete Blood Count + Diffe rentialon 05-27-2021 Basophils/100 WBC (Bld) 0.4 % 0.0 - 2.0 [employer] [facility] Work Phone: Erythrocyte distribution width (RBC) [Ratio] 12.8 % See Below [employer] [facility] Work Phone: Comment on above: Reference Range: 11. 5 - 14.5 Hematocrit (Bld) [Volume fraction] 41.6 % See Below [facility] Work Phone: Comment on above: Reference Range: 41. 0 - 52.0 Hemoglobin (Bld) [Mass/Vol] 14.1 g/dL See Below [employer] [facility] Work Phone: Comment on above: Reference Range: 13. 5 - 17.5 Lymphocytes/100 WBC (Bld) 26.5 % See Below [employer] [facility] Work Phone: Comment on above: Reference Range: 13. 0 - 44.0 MCHC (RBC) [Mass/Vol] 33.9 g/dL See Below [facility] Work Phone: Comment on above: Reference Range: 32. 0 - 36.0 MCV (RBC) [Entitic vol] 92 fL 80 - 100 [employer] Work Phone: Monocytes/100 WBC (Bld) 13.1 % 2.0 - 10.0 [employer] [facility] Work Phone: Neutrophils/100 WBC (Bld) 57.0 % See Below -[facility] Work Phone: Comment on above: Reference Range: 40. 0 - 80.0 Platelets (Bld) [#/Vol] 313 10*3/uL 150 - 450 [employer] Work Phone: RBC (Bld) [#/Vol] 4.50 {x10E12/L} See Below -[facility] Work Phone: Comment on above: Reference Range: 4.5 0 - 5.90 WBC (Bld) [#/Vol] 5.1 10*3/uL 4.4 - 11.3 [facility] Work Phone: Complete Blood Count + Differential 0.02 {x10E9/L} See Below -[facility] Work Phone: Comment on above: Reference Range: 0.0 0 - 0.10 Complete Blood Count + Differential 0.14 {x10E9/L} See Below -[facility] Work Phone: Comment on above: Reference Range: 0.0 0 - 0.70 Complete Blood Count + Differential 0.66 {x10E9/L} See Below -[facility] Work Phone: Comment on above: Reference Range: 0.1 0 - 1.00 Complete Blood Count + Differential 1.34 {x10E9/L} See Below -[facility] Work Phone: Comment on above: Reference Range: 1.2 0 - 4.80 Complete Blood Count + Differential 2.88 {x10E9/L} See Below -[facility] Work Phone: Comment on above: Reference Range: 1.2 0 - 7.70 Complete Blood Count + Differential 2.8 % 0.0 - 6.0 [facility] Work Phone: Complete Blood Count + Differential 0.2 % 0.0 - 0.9 [facility] Work Phone: Comment on above: Immature Granulocyte Count (IG) includes promyelocytes, myelocytes and metamyelocytes but does not include bands. Percent differential counts (%) should be interpreted in the context of the absolute cell counts (cells/L). Complete Blood Count + Differential 0.0 {/100_WBC} 0.0-0.0 [facility] Work Phone: Creatinine, Serumon 05-27-19 Creatinine [Mass/Vol] 0.69 mg/dL See Below [facility] Work Phone: Comment on above: Reference Range: 0.5 0 - 1.30 Creatinine, Serum >90 >90 [facility] Work Phone: Comment on above: CALCULATIONS OF OLEGARIO MATED GFR ARE PERFORMED USING THE 2020 CKD-EPI STUDY REFIT EQUATION WITHOUT THE RACE VARIABLE FOR THE IDMS-TRACEABLE CREATININE METHODS.https://jasn.asnjournals.org/content//ASN.[email or web address] 926160255 Laboratory - Chemistry and C hemistry - challengeon 05-27-2021 AST With P-5'-P [Catalytic activity/Vol] 21 U/L 9 - 39 [facility] Work Phone: Sedimentation Rate, Erythroc yteon 05-27-2021 ESR (Bld) [Velocity] 18 mm/h 0 - 20 [facility] Work Phone: Tobacco Screening.on 022 Adult depression screening assessment No [facility] Work Phone: Fall risk assessment a) No falls within the last year -[employer] [facility] Work Phone: Tobacco use status CPHS b) No -[facility] Work Phone: ALT - Alanine Aminotransfera se, Serumon 01-21-2021 ALT With P-5'-P [Catalytic activity/Vol] 15 U/L [employer] [facility] Work Phone: Comment on above: Patients treated wit h Sulfasalazine may generate falsely decreased results for ALT. Albumin, Serumon 01-21-2021 Albumin BCP dye [Mass/Vol] 4.5 g/dL 3.4 - 5.0 -[facility] Work Phone: Blood Urea Nitrogen, Serumon 01-21-2021 Urea nitrogen [Mass/Vol] 15 mg/dL 6 - 23 [employer] [facility] Work Phone: C Reactive Protein, Serumon 01-21-2021 CRP [Mass/Vol] mg/L -[employer] [facility] Work Phone: Comment on above: REF VALUE< 1.00 Complete Blood Count + Diffe rentialon 01-21-2021 Basophils/100 WBC (Bld) 0.5 % 0.0 - 2.0 -[employer] [facility] Work Phone: Erythrocyte distribution width (RBC) [Ratio] 12.9 % See Below [facility] Work Phone: Comment on above: Reference Range: 11. 5 - 14.5 Hematocrit (Bld) [Volume fraction] 42.6 % See Below [facility] Work Phone: Comment on above: Reference Range: 41. 0 - 52.0 Hemoglobin (Bld) [Mass/Vol] 14.8 g/dL See Below [employer] [facility] Work Phone: Comment on above: Reference Range: 13. 5 - 17.5 Lymphocytes/100 WBC (Bld) 22.0 % See Below [employer] [facility] Work Phone: Comment on above: Reference Range: 13. 0 - 44.0 MCHC (RBC) [Mass/Vol] 34.7 g/dL See Below [employer] [facility] Work Phone: Comment on above: Reference Range: 32. 0 - 36.0 MCV (RBC) [Entitic vol] 95 fL 80 - 100 [facility] Work Phone: Monocytes/100 WBC (Bld) 14.4 % 2.0 - 10.0 [employer] Work Phone: Neutrophils/100 WBC (Bld) 59.7 % See Below [employer] [facility] Work Phone: Comment on above: Reference Range: 40. 0 - 80.0 Platelets (Bld) [#/Vol] 265 10*3/uL 150 - 450 -[employer] [facility] Work Phone: RBC (Bld) [#/Vol] 4.47 {x10E12/L} below low threshold See Below [employer] [facility] Work Phone: Comment on above: Reference Range: 4.5 0 - 5.90 WBC (Bld) [#/Vol] 4.0 10*3/uL below low threshold 4.4 - 11.3 -[employer] [facility] Work Phone: Complete Blood Count + Differential 0.02 {x10E9/L} See Below [employer] [facility] Work Phone: Comment on above: Reference Range: 0.0 0 - 0.10 Complete Blood Count + Differential 0.13 {x10E9/L} See Below [employer] [facility] Work Phone: Comment on above: Reference Range: 0.0 0 - 0.70 Complete Blood Count + Differential 0.58 {x10E9/L} See Below [facility] Work Phone: Comment on above: Reference Range: 0.1 0 - 1.00 Complete Blood Count + Differential 0.89 {x10E9/L} below low threshold See Below [facility] Work Phone: Comment on above: Reference Range: 1.2 0 - 4.80 Complete Blood Count + Differential 2.41 {x10E9/L} See Below [facility] Work Phone: Comment on above: Reference Range: 1.2 0 - 7.70 Complete Blood Count + Differential 3.2 % 0.0 - 6.0 [facility] Work Phone: Complete Blood Count + Differential 0.2 % 0.0 - 0.9 [facility] Work Phone: Comment on above: Immature Granulocyte Count (IG) includes promyelocytes, myelocytes and metamyelocytes but does not include bands. Percent differential counts (%) should be interpreted in the context of the absolute cell counts (cells/L). Complete Blood Count + Differential 0.0 {/100_WBC} 0.0-0.0 [facility] Work Phone: Creatinine, Serumon 01-22-20 21 Creatinine [Mass/Vol] 0.90 mg/dL See Below [facility] Work Phone: Comment on above: Reference Range: 0.5 0 - 1.30 Creatinine, Serum >60 >60 [facility] Work Phone: Comment on above: CALCULATIONS OF OLEGARIO MATED GFR ARE PERFORMED USING THE MDRD STUDY EQUATION FOR THE IDMS-TRACEABLE CREATININE METHODS. CLIN CHEM 2007;53:766-72 Laboratory - Chemistry and C hemistry - challengeon 01-21-2021 AST With P-5'-P [Catalytic activity/Vol] 22 U/L 9 - 39 [facility] Work Phone: Sedimentation Rate, Erythroc yteon 01-21-2021 ESR (Bld) [Velocity] 9 mm/h 0 - 20 [employer] [facility] Work Phone: Tobacco Screening.on 021 Fall risk assessment a) No falls within the last year [employer] [facility] Work Phone: Tobacco use status CPHS b) No -[employer] [facility] Work Phone: ALT - Alanine Aminotransfera se, Serumon 09-17-2020 ALT With P-5'-P [Catalytic activity/Vol] 18 U/L [employer] [facility] Work Phone: Comment on above: Patients treated wit h Sulfasalazine may generate falsely decreased results for ALT. Albumin, Serumon 09-17-2020 Albumin BCP dye [Mass/Vol] 4.5 g/dL 3.4 - 5.0 [employer] [facility] Work Phone: Blood Urea Nitrogen, Serumon 09-17-2020 Urea nitrogen [Mass/Vol] 13 mg/dL 6 - 23 [employer] [facility] Work Phone: C Reactive Protein, Serumon 09-17-2020 CRP [Mass/Vol] mg/L [employer] [facility] Work Phone: Comment on above: REF VALUE< 1.00 Complete Blood Count + Diffe rentialon 09-17-2020 Basophils/100 WBC (Bld) 0.5 % 0.0 - 2.0 -[employer] [facility] Work Phone: Erythrocyte distribution width (RBC) [Ratio] 12.9 % See Below [employer] [facility] Work Phone: Comment on above: Reference Range: 11. 5 - 14.5 Hematocrit (Bld) [Volume fraction] 43.8 % See Below [employer] [facility] Work Phone: Comment on above: Reference Range: 41. 0 - 52.0 Hemoglobin (Bld) [Mass/Vol] 15.3 g/dL See Below [employer] [facility] Work Phone: Comment on above: Reference Range: 13. 5 - 17.5 Lymphocytes/100 WBC (Bld) 16.1 % See Below [employer] [facility] Work Phone: Comment on above: Reference Range: 13. 0 - 44.0 MCHC (RBC) [Mass/Vol] 34.9 g/dL See Below [employer] [facility] Work Phone: Comment on above: Reference Range: 32. 0 - 36.0 MCV (RBC) [Entitic vol] 95 fL 80 - 100 -[employer] [facility] Work Phone: Monocytes/100 WBC (Bld) 13.3 % 2.0 - 10.0 -[employer] [facility] Work Phone: Neutrophils/100 WBC (Bld) 67.0 % See Below [employer] [facility] Work Phone: Comment on above: Reference Range: 40. 0 - 80.0 Platelets (Bld) [#/Vol] 206 10*3/uL 150 - 450 -[employer] [facility] Work Phone: RBC (Bld) [#/Vol] 4.63 {x10E12/L} See Below [employer] [facility] Work Phone: Comment on above: Reference Range: 4.5 0 - 5.90 WBC (Bld) [#/Vol] 3.9 10*3/uL below low threshold 4.4 - 11.3 -[employer] [facility] Work Phone: Complete Blood Count + Differential 0.02 {x10E9/L} See Below [employer] [facility] Work Phone: Comment on above: Reference Range: 0.0 0 - 0.10 Complete Blood Count + Differential 0.11 {x10E9/L} See Below [facility] Work Phone: Comment on above: Reference Range: 0.0 0 - 0.70 Complete Blood Count + Differential 0.52 {x10E9/L} See Below [facility] Work Phone: Comment on above: Reference Range: 0.1 0 - 1.00 Complete Blood Count + Differential 0.63 {x10E9/L} below low threshold See Below [facility] Work Phone: Comment on above: Reference Range: 1.2 0 - 4.80 Complete Blood Count + Differential 2.62 {x10E9/L} See Below [facility] Work Phone: Comment on above: Reference Range: 1.2 0 - 7.70 Complete Blood Count + Differential 2.8 % 0.0 - 6.0 [facility] Work Phone: Complete Blood Count + Differential 0.3 % 0.0 - 0.9 [facility] Work Phone: Comment on above: Immature Granulocyte Count (IG) includes promyelocytes, myelocytes and metamyelocytes but does not include bands. Percent differential counts (%) should be interpreted in the context of the absolute cell counts (cells/L). Complete Blood Count + Differential 0.0 {/100_WBC} 0.0-0.0 [facility] Work Phone: Creatinine, Serumon 09-18-19 21 Creatinine [Mass/Vol] 0.87 mg/dL See Below [facility] Work Phone: Comment on above: Reference Range: 0.5 0 - 1.30 Creatinine, Serum >60 >60 [facility] Work Phone: Comment on above: CALCULATIONS OF OLEGARIO MATED GFR ARE PERFORMED USING THE MDRD STUDY EQUATION FOR THE IDMS-TRACEABLE CREATININE METHODS. CLIN CHEM 2007;53:766-72 Laboratory - Chemistry and C hemistry - challengeon 09-17-2020 AST With P-5'-P [Catalytic activity/Vol] 24 U/L 9 - 39 -[facility] Work Phone: Sedimentation Rate, Erythroc yteon 09-17-2020 ESR (Bld) [Velocity] 19 mm/h 0 - 20 -[facility] Work Phone: Tobacco Screening.on 021 Fall risk assessment a) No falls within the last year -[facility] Work Phone: Tobacco Screening. b) No [facility] Work Phone: Final Surgical Pathology Rep [facility] 09-03-2019 Final Surgical Pathology Report . 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 COMMENT: [facility] - D# [id number] CLINICAL INFORMATION: Procedure: COLONOSCOPY WITH ARGON PLASMA COAGULATION, BIOPSIES, TATTOOING OF POLYP SITE Preoperative diagnosis: RIGHT COLON POLYP Postoperative diagnosis: SAME SPECIMEN: A PROXIMAL ASCENDING COLON POLYP BIOPSY GROSS DESCRIPTION: Received in formalin, labeled with the patients name, Case #[id number], and proximal ascending colon polyp BX are multiple phillips-pink soft tissue fragments ranging from 0.1 to 0.4 cm. TS -1. Dictated by MARGARET CLAYTON MICROSCOPIC DESCRIPTION: Slides reviewed. Electronically Signed by Pathology Report verified by [facility] Electronically signed by KIKA CARABALLO Sign out Date: 09/03/2019 16:33 Performing Lab: [facility], [address] [place] [address] ([place]) Comment on above: Performed By: #### S PFR #### [address] [address] CNCOon 11-06-2017 CNCO Letter [address] [id number] [facility] [place] [id number] - - Iohl 2017Marva [address] [place] [id number] 1965Dear Mr. Luu,You have been referred to Dr. Dick to be evaluated and treated forColon screening.Please call [phone]. to schedule your appointment. [facility] affiliated providers will have access to your records. Weask that if you are not seeing a [facility] affiliated provider thatyou notify our office and provide the name of the provider and yourappointment date. We will then verify if your insurance requires a priorauthorization and will forward your records in a timely manner.Sincerely,Jamie David M.D.(Signed electronically to expedite mailing) [facility] CNOVon 11-06-2017 CNOV Office Visit (AGINTMLW) MARVA LUU ([id number]) 1965 [facility]/06/17 8:40 AM JAMIE DAVID AGINTMLW During your visit today, we recorded the following information about you: Temperature Pulse Respiration Blood pressure 98.5 degrees 74/minute 16/minute 128/88 Weight Height 82 kg 1.854 Skinny David MD 11/06/2017 9:56 AM SignedSubjectiveThe patient is here to transition care and for a wellness exam. He was Naresh Smith CNP. The patient is coming due for a diabetes screen. He isotherwise up to date on his screening and immunizations. He follows withrheumatology for his rheumatoid arthritis. The patient reports he does notwatch his diet. He reports he does exercise via walking and is active at work. The patient is a former smoker. He gets his medications from rheumatology. Inthe past two weeks, the patient denies feeling down, depressed or hopeless. Hedenies having little interest in doing things.He reports some mild pain in his right wrist and shoulder today. He has noquestions or concerns at this time. He has a be well form to be completed forhis job.The history is provided by the patient.ALLERGIESNo Known AllergiesCurrent Outpatient Prescriptions:ENBREL 50 mg/mL (0.98 mL) injection One injection weekly Disp: Rfl:predniSONE (DELTASONE) 10 mg tablet As needed for flare ups Disp: Rfl:PROPYLENE GLYCOL/PEG 400 (BLINK TEARS LUBRICATING) Eye Drops Use 1 Drop in botheyes three times daily. Disp: Rfl:traMADol (ULTRAM) 50 mg tablet Disp: Rfl:HUMIRA PEN 40 mg/0.8 mL PnKt One injection every other week. Disp: Rfl:No current facility-administered medications for this visit.ACTIVE PROBLEM LISTNeutropenia, Unspecified (Hcc)ProteinuriaHepatiti s C InfectionFelty's Syndrome (Hcc)Chalazion - Right EyeMeibomitis - Both EyesOther vitreous opacities - Both EyesAfter-Cataract Obscuring VisionVitreous Floaters of Both EyesDry Eye SyndromePseudophakia of Both EyesSocial History Marital status: Spouse name: Angeles Rice Years of education: Number of children: 2Occupational HistoryOccupation Employer Comment [employer]*Social History Main Topics Smoking status: Former Smoker [...] reported history Sexual activity: Yes Partners with: FemaleOther Topics ConcernCaffeine Concern Yes Comment:Uses caffeine; Type: coffee, and soda; Amount: moderate (equiv to 1-3 8oz coffee/day)Social History Narrative Lives alone. Feels safe at home.Family HistoryProblem Relation Age of Onset- Fibromyalgia [OTHER] SisterReviewed past medical and surgical history.BP 128/88 (BP Site: Right Arm, BP Position: Sitting, BP Cuff Size: RegularAdult) Pulse 74 Temp 36.9 ?C (98.5 ?F) Resp 16 Ht 185.4 cm (6' 1) Wt 82 kg (180 lb 12.8 oz) BMI 23.85 kg/m?Review of SystemsConstitutional: Negative for fever and weight loss.HENT: Negative for congestion, hearing loss and sore throat.Eyes: Negative for blurred vision.Respiratory: Negative for cough and shortness of breath.Cardiovascular: Negative for chest pain, palpitations and leg swelling.Gastrointestina l: Negative for abdominal pain, constipation, diarrhea, nauseaand vomiting.Genitourinary: Negative for dysuria. DribblingMusculoskeletal : Positive for joint pain (chronic). Negative for falls.Skin: Negative for rash.Neurological: Negative for dizziness, tingling, loss of consciousness, weaknessand headaches.Psychiatric/Be havioral: Negative for depression and suicidal ideas.ObjectivePhysical ExamConstitutional: He is oriented to person, place, and time and well-developed,well-nour ished, and in no distress. Vital signs are normal. He does not have asickly appearance. No distress.HENT:Head: Normocephalic and atraumatic.Mouth/Throat: Oropharynx is clear and moist and mucous membranes are normal.Eyes: Conjunctivae are normal. Pupils are equal, round, and reactive to light.Neck: No thyromegaly present.Cardiovascular: Normal rate, regular rhythm and normal heart sounds.No murmur heard.Pulmonary/Chest: Effort normal and breath sounds normal. No respiratorydistress. He has no wheezes.Abdominal: Soft. Bowel sounds are normal. He exhibits no distension. There isno tenderness.Musculoskelet al: He exhibits no edema.Neurological: He is alert and oriented to person, place, and time. He displaysweakness.4/5 strength in bilateral upper extremitiesSkin: Skin is warm and dry. No rash noted. He is not diaphoretic. No erythema.Psychiatric: Mood normal.Nursing note and vitals reviewed. ASSESSMENT/PLAN:1. Visit for well man health check - ICD9: V70.0, ICD10: Z00.00 (primarydiagnosis)- Colon cancer screening reviewed and colonoscopy recommended. Patient agreesand order placed.- Recommended regular aerobic exercise.- Check CMP, fasting lipid panel and PSA- Follow up for annual exam in one year.- LIPID PANEL BASIC- COMP METABOLIC PANEL2. Screening for prostate cancer - ICD9: V76.44, ICD10: Z12.5- The patient reports having issues with urinary dribbling. He was supposedto be taking a medication, but he did not want to take it.- PSA/PROSTSPECAG SCRN3. Screening for cardiovascular condition - ICD9: V81.2, ICD10: Z13.6- LIPID PANEL BASIC- COMP METABOLIC PANEL4. Screening for colon cancer - ICD9: V76.51, ICD10: Z12.11- CONSULT TO GENERAL SURGERYThe patient is here to transition care and for a wellness exam. Paperworkcompleted and provided to the patient. Vitals and exam fairly unremarkableaside from his chronic joint problems. Routine follow up scheduled. He wasinstructed to call with any concerns or questions before then and he agreed.Return in about 1 year (around 11/06/2018) for annual physical.Jamie David, Arslan David MD 11/06/2017 8:59 AM SignedCall if any concerns or questions.Referring Provider: SELF [200]Allergies As of Date: 11/06/2017(No Known Allergies)Date Reviewed: 11/06/2017Reviewed by: Jamie David - Fully AssessedReason for Visit: Establish Care [42] Cmt: Well Adult ExamPrimary Visit Diagnosis:Visit for well man health check [Z00.00] Other Visit Diagnoses:Screening for prostate cancer [Z12.5] Screening for cardiovascular condition [Z13.6] Screening for colon cancer [Z12.11]Order(s):CONSULT TO GENERAL SURGERY [9011] Order #: [id number]: 1 LIPID PANEL BASIC [SQLIPB] Order #: [id number] FUTURE COMP METABOLIC PANEL [SQCMP] Order #: [id number] FUTURE PSA/PROSTSPECAG SCRN [SQPSAS1] Order #: [id number] FUTUREPrescriptions as of 11/06/2017 Sig: ENBREL 50 MG/ML (0.98 ML) SUB* One injection weekly PREDNISONE 10 MG TABLET As needed for flare ups BLINK TEARS LUBRICATING EYE D* Use 1 Drop in both eyes three* TRAMADOL 50 MG TABLET * HUMIRA PEN 40 MG/0.8 ML SUBCU* One injection every other wee*Problem List As Of Date 11/06/2017 Noted Resolved [...] your clinician: Call if any concerns or questions.Level of Service: WELLNESS EXAMS EST 40-64 YRS [03967]Disposition: Return in about 1 year (around 11/06/2018) for annual physical.Follow-up and Disposition History RecordedEncounter Number: [id number] Status:Closed by JAMIE DAVID MD on 11/06/17 [facility] PROGRESSon 11-06-2017 Protein HNO ID: [id number]: Jamie Obrienervice: (none)Author Type: PhysicianType: Progress NotesFiled: 11/06/2017 9:56 AMNote Text:SubjectiveThe patient is here to transition care and for a wellness exam. 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 The patient is coming due for a diabetesscreen. He is otherwise up to date on his screening and immunizations.He follows with rheumatology for his rheumatoid arthritis. The patientreports he does not watch his diet. He reports he does exercise viawalking and is active at work. The patient is a former smoker. He getshis medications from rheumatology. In the past two weeks, the patientdenies feeling down, depressed or hopeless. He denies having littleinterest in doing things.He reports some mild pain in his right wrist and shoulder today. He hasno questions or concerns at this time. He has a be well form to becompleted for his job.The history is provided by the patient.ALLERGIESNo Known AllergiesCurrent Outpatient Prescriptions:ENBREL 50 mg/mL (0.98 mL) injection One injection weekly Disp: Rfl:predniSONE (DELTASONE) 10 mg tablet As needed for flare ups Disp: Rfl:PROPYLENE GLYCOL/PEG 400 (BLINK TEARS LUBRICATING) Eye Drops Use 1 Drop inboth eyes three times daily. Disp: Rfl:traMADol (ULTRAM) 50 mg tablet Disp: Rfl:HUMIRA PEN 40 mg/0.8 mL PnKt One injection every other week. Disp: Rfl:No current facility-administered medications for this visit.ACTIVE PROBLEM LISTNeutropenia, Unspecified (Hcc)ProteinuriaHepatiti s C InfectionFelty's Syndrome (Hcc)Chalazion - Right EyeMeibomitis - Both EyesOther vitreous opacities - Both EyesAfter-Cataract Obscuring VisionVitreous Floaters of Both EyesDry Eye SyndromePseudophakia of Both EyesSocial History Marital status: Spouse name: Angeles Rice Years of education: Number of children: 2Occupational HistoryOccupation Employer Comment [employer]*Social History Main Topics Smoking status: Former Smoker [...] reported history Sexual activity: Yes Partners with: FemaleOther Topics ConcernCaffeine Concern Yes Comment:Uses caffeine; Type: coffee, and soda; Amount: moderate (equiv to 1-3 8oz coffee/day)Social History Narrative Lives alone. Feels safe at home.Family HistoryProblem Relation Age of Onset- Fibromyalgia [OTHER] SisterReviewed past medical and surgical history.BP 128/88 (BP Site: Right Arm, BP Position: Sitting, BP Cuff Size: RegularAdult) Pulse 74 Temp 36.9 ?C (98.5 ?F) Resp 16 Ht 185.4 cm (6'1) Wt 82 kg (180 lb 12.8 oz) BMI 23.85 kg/m?Review of SystemsConstitutional: Negative for fever and weight loss.HENT: Negative for congestion, hearing loss and sore throat.Eyes: Negative for blurred vision.Respiratory: Negative for cough and shortness of breath.Cardiovascular: Negative for chest pain, palpitations and leg swelling.Gastrointestina l: Negative for abdominal pain, constipation, diarrhea,nausea and vomiting.Genitourinary: Negative for dysuria. DribblingMusculoskeletal : Positive for joint pain (chronic). Negative for falls.Skin: Negative for rash.Neurological: Negative for dizziness, tingling, loss of consciousness,weakness and headaches.Psychiatric/Be havioral: Negative for depression and suicidal ideas.ObjectivePhysical ExamConstitutional: He is oriented to person, place, and time andwell-developed, well-nourished, and in no distress. Vital signs arenormal. He does not have a sickly appearance. No distress.HENT:Head: Normocephalic and atraumatic.Mouth/Throat: Oropharynx is clear and moist and mucous membranes arenormal.Eyes: Conjunctivae are normal. Pupils are equal, round, and reactive tolight.Neck: No thyromegaly present.Cardiovascular: Normal rate, regular rhythm and normal heart sounds.No murmur heard.Pulmonary/Chest: Effort normal and breath sounds normal. No respiratorydistress. He has no wheezes.Abdominal: Soft. Bowel sounds are normal. He exhibits no distension. Thereis no tenderness.Musculoskelet al: He exhibits no edema.Neurological: He is alert and oriented to person, place, and time. Hedisplays weakness.4/5 strength in bilateral upper extremitiesSkin: Skin is warm and dry. No rash noted. He is not diaphoretic. Noerythema.Psychiatric: Mood normal.Nursing note and vitals reviewed. ASSESSMENT/PLAN:1. Visit for well man health check - ICD9: V70.0, ICD10: Z00.00 (primarydiagnosis)- Colon cancer screening reviewed and colonoscopy recommended. Patientagrees and order placed.- Recommended regular aerobic exercise.- Check CMP, fasting lipid panel and PSA- Follow up for annual exam in one year.- LIPID PANEL BASIC- COMP METABOLIC PANEL2. Screening for prostate cancer - ICD9: V76.44, ICD10: Z12.5- The patient reports having issues with urinary dribbling. He wassupposed to be taking a medication, but he did not want to take it.- PSA/PROSTSPECAG SCRN3. Screening for cardiovascular condition - ICD9: V81.2, ICD10: Z13.6- LIPID PANEL BASIC- COMP METABOLIC PANEL4. Screening for colon cancer - ICD9: V76.51, ICD10: Z12.11- CONSULT TO GENERAL SURGERYThe patient is here to transition care and for a wellness exam. Paperworkcompleted and provided to the patient. Vitals and exam fairlyunremarkable aside from his chronic joint problems. Routine follow upscheduled. He was instructed to call with any concerns or questionsbefore then and he agreed.Return in about 1 year (around 11/06/2018) for annual physical.Jamie David MD [facility] CNOVon 11-07-2016 CNOV Office Visit (AGINTMLO) MARVA LUU ([id number]) 1965 MDate Time Provider Department11/07/16 8:30 AM EREN SMITH (PROFESSOR OF POLITICAL SCIENCE) AGINTMLO During your visit today, we recorded the following information about you:Tamia Cheatham 11/07/2016 9:42 AM SignedThe patient did not show for this appointment.Tamia Conley As of Date: 11/07/2016(No Known Allergies)Date Reviewed: 05/30/2016Reviewed by: Morris Louise - Fully AssessedReason for Visit: No Show [1558]Primary Visit Diagnosis:NO SHOWPrescriptions as of 11/07/2016 Sig: BLINK TEARS LUBRICATING EYE D* Use 1 Drop in both eyes three* TRAMADOL 50 MG TABLET * HUMIRA PEN 40 MG/0.8 ML SUBCU* One injection every other wee*Problem List As Of Date 11/07/2016 Noted Resolved Neutropenia, Unspecified [D70.9] INVALID FOR* Proteinuria [R80.9] INVALID FOR* Hepatitis C infection [B19.20] INVALID FOR* 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] INVALID FOR* Chalazion - Right Eye [H00.19] INVALID FOR* Meibomitis - Both Eyes [H00.019] INVALID FOR* Other vitreous opacities - Both Eyes [H43.399] INVALID FOR* Lens replaced by other means - Both Eyes [Z96.1]INVALID FOR*05/08/2016 After-cataract obscuring vision [H26.499] INVALID FOR* Vitreous floaters of both eyes [H43.393] INVALID FOR* Dry eye syndrome [H04.129] INVALID FOR* Pseudophakia of both eyes [Z96.1] INVALID FOR*Level of Service: OFFICE VISIT NO CHARGE WITH PROCEDURE [[id number]] Status:Closed by TAMIA CHEATHAM on 11/07/16 [facility] PROGRESSon 11-07-2016 Protein HNO ID: [id number] Author: Tamia Cheatham Service: (none) Author Type: (none) Type: Progress Notes Filed: 11/07/2016 9:42 AM Note Text: The patient did not show for this appointment. Tamia Cheatham [facility] Vital Signs Date Time Vital Sign Value Performing Clinician Facility 10-27-2024 08:17-0400 Body height 185.4 cm Sidney Beckham MD Work Phone: [facility] 10-27-2024 08:17-0400 Body mass index (BMI) [Ratio] 28.21 kg/m2 Sidney Beckham MD Work Phone: [facility] 10-27-2024 08:17-0400 Body temperature 97.5 [degF] Sidney Beckham MD Work Phone: [facility] 10-27-2024 08:17-0400 Body weight 96.98 kg Sidney Beckham MD Work Phone: [facility] 10-27-2024 08:17-0400 Diastolic blood pressure 91 mm[Hg] Sidney Beckham MD Work Phone: [facility] 10-27-2024 08:17-0400 Heart rate 74 /min Sidney Beckham MD Work Phone: [facility] 10-27-2024 08:17-0400 SaO2% (BldA) [Mass fraction] 96 % Sidney Beckham MD Work Phone: [facility] 10-27-2024 08:17-0400 Systolic blood pressure 157 mm[Hg] Sidney Beckham MD Work Phone: [facility] 06-16-2024 08:15-0500 Body height 182.9 cm Sidney Beckham MD Work Phone: [facility] 06-16-2024 08:15-0500 Body mass index (BMI) [Ratio] 29.04 kg/m2 Sidney Beckham MD Work Phone: [facility] 06-16-2024 08:15-0500 Body temperature 97.7 [degF] Sidney Beckham MD Work Phone: 6(667)704-705860 [place] [address] 06-16-2024 08:15-0500 Body weight 97.11 kg Sidney Beckham MD Work Phone: 9(061)386-320260 [place] [address] 06-16-2024 08:15-0500 Diastolic blood pressure 88 mm[Hg] Sidney Beckham MD Work Phone: 1(370)456-912660 [place] [address] 06-16-2024 08:15-0500 Heart rate 81 /min Sidney Beckham MD Work Phone: 3(237)892-135460 [place] [address] 06-16-2024 08:15-0500 SaO2% (BldA) [Mass fraction] 98 % Sidney Beckham MD Work Phone: 2(269)525-002160 [place] [address] 06-16-2024 08:15-0500 Systolic blood pressure 129 mm[Hg] Sidney Beckham MD Work Phone: 0(206)648-094760 [place] [address] 02-14-2024 07:32-0400 Body height 182.9 cm Sidney Beckham MD Work Phone: 4(362)093-862760 [place] [address] 02-14-2024 07:32-0400 Body mass index (BMI) [Ratio] 28.73 kg/m2 Sidney Beckham MD Work Phone: 9(587)005-592260 [place] [address] 02-14-2024 07:32-0400 Body temperature 97.7 [degF] Sidney Beckham MD Work Phone: 1(992)495-184660 [place] [address] 02-14-2024 07:32-0400 Body weight 96.07 kg Sidney Beckham MD Work Phone: 5(277)718-201260 [place] [address] 02-14-2024 07:32-0400 Diastolic blood pressure 80 mm[Hg] Sidney Beckham MD Work Phone: 3(756)622-370960 [place] [address] 02-14-2024 07:32-0400 Heart rate 66 /min Sidney Beckham MD Work Phone: 4(366)777-908060 [place] [address] 02-14-2024 07:32-0400 SaO2% (BldA) [Mass fraction] 99 % Sidney Beckham MD Work Phone: [facility] 02-14-2024 07:32-0400 Systolic blood pressure 130 mm[Hg] Sidney Beckham MD Work Phone: [facility] 09-24-2023 14:17-0400 Body height 185.4 cm Sidney Beckham MD Work Phone: [facility] 09-24-2023 14:17-0400 Body mass index (BMI) [Ratio] 26.62 kg/m2 Sidney Beckham MD Work Phone: [facility] 09-24-2023 14:17-0400 Body temperature 97.7 [degF] Sidney Beckham MD Work Phone: [facility] 09-24-2023 14:17-0400 Body weight 91.54 kg Sidney Beckham MD Work Phone: [facility] 09-24-2023 14:17-0400 Diastolic blood pressure 84 mm[Hg] Sidney Beckham MD Work Phone: [facility] 09-24-2023 14:17-0400 Heart rate 73 /min Sidney Beckham MD Work Phone: [facility] 09-24-2023 14:17-0400 SaO2% (BldA) [Mass fraction] 97 % Sidney Beckham MD Work Phone: [facility] 09-24-2023 14:17-0400 Systolic blood pressure 141 mm[Hg] Sidney Beckham MD Work Phone: [facility] 10-27-2022 08:24-0400 Body mass index (BMI) [Ratio] 25.88 kg/m2 Malissa Dickey Work Phone: [facility] Work Phone: 10-27-2022 08:24-0400 Body surface area Derived from formula 2.13 m2 Malissa Dickey Work Phone: [facility] Work Phone: 10-27-2022 08:24-0400 Body temperature 96.8 [degF] Malissa Dickey Work Phone: [facility] Work Phone: 10-27-2022 08:24-0400 Body weight 88.99 kg Malsisa Jaimesiff Work Phone: [facility] [facility] Work Phone: 10-27-2022 08:24-0400 Diastolic blood pressure 79 mm[Hg] Malissa Dickey Work Phone: [facility] Work Phone: 10-27-2022 08:24-0400 Heart rate 66 /min Malissa Dickey Work Phone: [facility] Work Phone: 10-27-2022 08:24-0400 SaO2% (BldA) [Mass fraction] 98 % Malissa Dickey Work Phone: [facility] Work Phone: 10-27-2022 08:24-0400 Systolic blood pressure 146 mm[Hg] Malissa Jaimesiff Work Phone: [facility] Work Phone: 01-04-2022 10:06-0400 Body height 185.42 cm Malissa Jaimesiff Work Phone: [facility] Work Phone: 01-04-2022 10:06-0400 Body mass index (BMI) [Ratio] 25 kg/m2 Malissa Randolphlliff Work Phone: [facility] Work Phone: 01-04-2022 10:06-0400 Body surface area Derived from formula 2.1 m2 Malissa Jaimesiff Work Phone: [facility] Work Phone: 01-04-2022 10:06-0400 Body temperature 97.5 [degF] Malissa Randolphlliff Work Phone: [employer] [facility] Work Phone: 01-04-2022 10:06-0400 Body weight 85.96 kg Malissa Randolphlliff Work Phone: [facility] Work Phone: 01-04-2022 10:06-0400 Diastolic blood pressure 89 mm[Hg] Malissa Martínez Jolliff Work Phone: [facility] Work Phone: 01-04-2022 10:06-0400 Heart rate 69 /min Malissa Martínez Jolliff Work Phone: [facility] Work Phone: 01-04-2022 10:06-0400 Respiratory rate 16 /min Malissa Randolphlliff Work Phone: [facility] [facility] Work Phone: 01-04-2022 10:06-0400 SaO2% (BldA) [Mass fraction] 98 % Malissa Martínez Jolliff Work Phone: [facility] Work Phone: 01-04-2022 10:06-0400 Systolic blood pressure 146 mm[Hg] Malissa Martínez Jolliff Work Phone: [facility] Work Phone: 01-04-2022 10:06-0400 0 1 Malissa Martínez Jolliff Work Phone: [facility] Work Phone: Comment on above: Pain[employer] 05-27-2021 08:03-0500 Body height 185.42 cm Malissa Jaimesiff Work Phone: [facility] Work Phone: 05-27-2021 08:03-0500 Body mass index (BMI) [Ratio] 25.37 kg/m2 Malissa Randolphlliff Work Phone: [facility] Work Phone: 05-27-2021 08:03-0500 Body surface area Derived from formula 2.12 m2 Malissa Jaimesiff Work Phone: [facility] Work Phone: 05-27-2021 08:03-0500 Body temperature 97.3 [degF] Malissa Jaimesiff Work Phone: [facility] Work Phone: 05-27-2021 08:03-0500 Body weight 87.23 kg Malissa Jaimesiff Work Phone: [facility] Work Phone: 05-27-2021 08:03-0500 Diastolic blood pressure 76 mm[Hg] Malissa Randolphlliff Work Phone: [facility] Work Phone: 05-27-2021 08:03-0500 Heart rate 65 /min Malissa Martínez Jolliff Work Phone: [facility] Work Phone: 05-27-2021 08:03-0500 Respiratory rate 16 /min Malissa Martínez Jolliff Work Phone: [facility] Work Phone: 05-27-2021 08:03-0500 SaO2% (BldA) [Mass fraction] 98 % Malissa Martínez Jolliff Work Phone: [facility] Work Phone: 05-27-2021 08:03-0500 Systolic blood pressure 128 mm[Hg] Malissa Jaimesiff Work Phone: [facility] Work Phone: 05-27-2021 08:03-0500 0 1 Malissa Jaimesiff Work Phone: [facility] Work Phone: Comment on above: [employer] 01-21-2021 08:19-0400 Body height 185.42 cm Malissa Jaimesiff Work Phone: [facility] Work Phone: 01-21-2021 08:19-0400 Body mass index (BMI) [Ratio] 24.45 kg/m2 Malissa Jaimesiff Work Phone: [facility] Work Phone: 01-21-2021 08:19-0400 Body surface area Derived from formula 2.08 m2 Malissa Jaimesiff Work Phone: [facility] Work Phone: 01-21-2021 08:19-0400 Body temperature 97.9 [degF] Malissa Jaimesiff Work Phone: [facility] Work Phone: 01-21-2021 08:19-0400 Body weight 84.06 kg Malissa Randolphlliff Work Phone: [facility] Work Phone: 01-21-2021 08:19-0400 Diastolic blood pressure 87 mm[Hg] Malissa Randolphlliff Work Phone: [facility] Work Phone: 01-21-2021 08:19-0400 Heart rate 74 /min Malsisa Dickey Work Phone: [facility] Work Phone: 01-21-2021 08:19-0400 Respiratory rate 16 /min Malissa Dickey Work Phone: [facility] Work Phone: 01-21-2021 08:19-0400 SaO2% (BldA) [Mass fraction] 98 % Malissa Dickey Work Phone: [facility] Work Phone: 01-21-2021 08:19-0400 Systolic blood pressure 130 mm[Hg] Malissa Dickey Work Phone: [facility] Work Phone: 01-21-2021 08:19-0400 0 1 Malissa Dickey Work Phone: [facility] Work Phone: Comment on above: Pain[employer] 09-17-2020 08:11-0400 Body height 185.42 cm Malissa Dickey Work Phone: [facility] Work Phone: 09-17-2020 08:11-0400 Body mass index (BMI) [Ratio] 24.46 kg/m2 Malissa Jaimesiff Work Phone: [facility] Work Phone: 09-17-2020 08:11-0400 Body surface area Derived from formula 2.08 m2 Malissa Jaimesiff Work Phone: [facility] Work Phone: 09-17-2020 08:11-0400 Body temperature 98.1 [degF] Malissa Jaimesiff Work Phone: [facility] Work Phone: 09-17-2020 08:11-0400 Body weight 84.09 kg Malissa Dickey Work Phone: [facility] Work Phone: 09-17-2020 08:11-0400 Diastolic blood pressure 81 mm[Hg] Malissa Dickey Work Phone: [facility] Work Phone: 09-17-2020 08:11-0400 Heart rate 76 /min Malissa Dickey Work Phone: [facility] Work Phone: 09-17-2020 08:11-0400 Respiratory rate 16 /min Malissa Dickey Work Phone: [facility] Work Phone: 09-17-2020 08:11-0400 SaO2% (BldA) [Mass fraction] 100 % Malissa Dickey Work Phone: [facility] Work Phone: 09-17-2020 08:11-0400 Systolic blood pressure 142 mm[Hg] Malissa Dickey Work Phone: [facility] Work Phone: 09-17-2020 08:11-0400 2 1 Malissa Dickey Work Phone: [facility] Work Phone: Comment on above: PainScale Encounters Encounter Date Encounter Type Care Provider Facility Start: 10-27-2024 End: 10-27-2024 Office outpatient visit 25 minutes Sidney Beckham MD Work Phone: [facility] Comment on above: Rheumatoid arthritis with rheumatoid factor of multiple sites without organ or systems involvement (Multi) (Primary Dx); Long-term current use of tofacitinib Start: 10-27-2024 End: 10-27-2024 [facility] Start: 06-16-2024 End: 06-16-2024 Office outpatient visit 25 minutes Sidney Beckham MD Work Phone: [facility] Comment on above: Rheumatoid arthritis with rheumatoid factor of multiple sites without organ or systems involvement (Multi) (Primary Dx); Long-term current use of tofacitinib Start: 06-16-2024 End: 06-16-2024 ambulatory [facility] Start: 02-14-2024 End: 02-14-2024 Office outpatient visit 25 minutes Sidney Beckham MD Work Phone: [facility] Comment on above: Rheumatoid arthritis with rheumatoid factor of multiple sites without organ or systems involvement (Multi) (Primary Dx); Long-term current use of tofacitinib Start: 02-14-2024 End: 02-14-2024 ambulatory [facility] Start: 09-24-2023 End: 09-24-2023 Office outpatient visit 25 minutes Sidney Beckham MD Work Phone: [facility] Comment on above: Rheumatoid arthritis with rheumatoid factor of multiple sites without organ or systems involvement (Multi) (Primary Dx); Long-term current use of tofacitinib Start: 11-20-2022 Result Review [facility]ickey [facility]: [facility] Work Phone: Start: 11-16-2022 AUDIT Malissa Dickey Work Phone: [facility] Work Phone: Start: 10-30-2022 AUDIT Malissa Dickey Work Phone: [facility] Work Phone: Start: 10-27-2022 FUV, Provider: Sidney Beckham, Status: Pen, Time: 8:30 AM Malissa Dickey [facility] Work Phone: Start: 10-27-2022 Office outpatient vi sit 25 minutes Malissa Dickey Work Phone: [employer] Work Phone: Start: 10-27-2022 ambulatory MD SIDNEY BECKHAM [facility] l[facility]:[id number] Start: 10-26-2022 AUDIT Malissa Dickey Work Phone: [employer] Work Phone: Start: 05-08-2022 FUV, Provider: Sidney Beckham, Status: Pen, Time: 8:30 AM Malissa Dickey Work Phone: [employer] Work Phone: Start: 05-07-2022 AUDIT Malissa Dickey Work Phone: [employer] Work Phone: Start: 03-29-2022 End: 03-29-2022 ambulatory Malissa Dickey [facility] Work Phone: Start: 03-29-2022 End: 03-29-2022 Patient encounter procedure [facility] Start: 01-05-2022 Chart Update Malissa Dickey Work Phone: [employer] Work Phone: Start: 01-04-2022 Office outpatient vi sit 25 minutes Malissa Dickey Work Phone: [employer] Work Phone: Start: 01-04-[address] Malissa Dickey Facility:[id number] Start: 07-07-2021 End: 07-07-2021 ambulatory Karol Dossi Facility:[facility] Start: 07-05-2021 End: 07-05-2021 ambulatory Karol Dossi Facility:[facility] Start: 06-29-2021 End: 06-29-2021 ambulatory Karol Dossi Facility:[facility] Start: 06-27-2021 End: 06-27-2021 ambulatory Karol Dossi Facility:[facility] Start: 06-22-2021 End: 06-22-2021 ambulatory Karol Dossi Facility:[facility] Start: 06-20-2021 End: 06-20-2021 ambulatory Karol Dossi Facility:[facility] Start: 06-15-2021 End: 06-15-2021 ambulatory Karol Dossi Facility:[facility] Start: 06-13-2021 ambulatory Karol Dossi [facility] Start: 06-13-2021 End: 06-13-2021 ambulatory Karol Dossi Facility:[facility] Start: 05-29-2021 Chart Update Malissa S Jolliff Work Phone: [facility] Work Phone: Start: 05-27-2021 FUV, Provider: Sidney Beckham, Status: Pen, Time: 8:00 AM Malissa S Jolliff Work Phone[facility] Work Phone: Start: 05-27-2021 Office outpatient vi sit 25 minutes Malissa S Jolliff Work Phone: [employer] Work Phone: Start: 05-26-2021 AUDIT Malissa S Jolliff Work Phone: [employer] Work Phone: Start: 01-21-2021 FUV, Provider: Sidney Beckham, Status: Pen, Time: 8:30 AM Malissa S Jolliff Work Phone[facility] Work Phone: Start: 01-21-2021 Office outpatient vi sit 25 minutes Malissa S Jolliff Work Phone: [facility] Work Phone: Start: 01-20-2021 AUDIT Malissa S Jolliff Work Phone: [facility] Work Phone: Start: 01-12-2021 AUDIT Malissa S Jolliff Work Phone: [facility] Work Phone: Start: 09-19-2020 Chart Update Malissa Dickey Work Phone: [facility] Work Phone: Start: 05-03-2020 Patient encounter procedure Sidney Beckham MD [facility] Work Phone: Start: 01-05-2020 Patient encounter procedure Sidney Beckham MD [facility] Work Phone: Start: 02-05-2019 Patient encounter procedure Sidney Beckham MD [facility] Work Phone: Start: 10-02-2018 Patient encounter procedure Sidney Beckham MD -[employer] [facility] Work Phone: Procedures Date Procedure Procedure Detail Performing Clinician Start: 08-06-2024 Lipid 1996 panel - S marcellus or Plasma Sidney Beckham MD Work Phone: Start: 02-05-2019 Lipid 1996 panel - S marcellus or Plasma Sidney Beckham MD Work Phone: Appendectomy Sidney Beckham MD Operative procedure on foot Sidney Beckham MD Plan of Treatment Date Care Activity Detail Author Start: 05-06-2034 DTaP/Tdap/Td Vaccine s (3 - Td or Tdap) DTaP/Tdap/Td Vaccines (3 - Td or Tdap) [facility] Start: 08-06-2029 Lipid panel Lipid Panel [facility] Start: 03-02-2025 End: 03-02-2025 Patient encounter procedure 03/02/2025 8:00 AM EST Office Visit [address] [place] [address] Sidney Beckham MD [address] [place] [address] [address] [place], [place] [id number] [facility] Start: 01-28-2025 DTaP/Tdap/Td Vaccine s (2 - Td or Tdap) DTaP/Tdap/Td Vaccines (2 - Td or Tdap) [facility] Start: 12-15-2024 Influenza vaccination Influenza Vacc ine (#1) [facility] Start: 10-27-2024 End: 10-27-2025 C reactive protein [Mass/volume] in Serum or Plasma C-Reactive Protein Lab Routine Rheumatoid arthritis with rheumatoid factor of multiple sites without organ or systems involvement (Multi) Expected: 10/27/2024, Expires: 10/27/[address] [facility] Work Phone: Comment on above: Expected: 10/27/2024 , Expires: 10/27/2025 Start: 10-27-2024 End: 10-27-2025 CBC W Auto Differential panel - Blood CBC and Auto Differential Lab Routine Rheumatoid arthritis with rheumatoid factor of multiple sites without organ or systems involvement (Multi) Expected: 10/27/2024, Expires: 10/27/2025 [facility] Work Phone: Comment on above: Expected: 10/27/2024 , Expires: 10/27/2025 Start: 10-27-2024 End: 10-27-2025 Comprehensive metabolic 2000 panel - Serum or Plasma Comprehensive Metabolic Panel Lab Routine Rheumatoid arthritis with rheumatoid factor of multiple sites without organ or systems involvement (Multi) Expected: 10/27/2024, Expires: 10/27/[address] [facility] Work Phone: Comment on above: Expected: 10/27/2024 , Expires: 10/27/2025 Start: 10-27-2024 End: 10-27-2025 Erythrocyte sedimentation rate Sedimentation Rate Lab Routine Rheumatoid arthritis with rheumatoid factor of multiple sites without organ or systems involvement (Multi) Expected: 10/27/2024, Expires: 10/27/[address] [facility] Work Phone: Comment on above: Expected: 10/27/2024 , Expires: 10/27/2025 Start: 10-27-2024 End: 10-27-2024 Patient encounter procedure 10/27/2024 8:30 AM EDT Office Visit [address] [place] [address] Sidney Beckham MD [address] [place] [address] [address] [place] [address] [facility] Start: 06-16-2024 End: 06-16-2025 C reactive protein [Mass/volume] in Serum or Plasma C-Reactive Protein Lab Routine Rheumatoid arthritis with rheumatoid factor of multiple sites without organ or systems involvement (Multi) Expected: 06/16/2024, Expires: 06/16/[address] [facility] Work Phone: Comment on above: Expected: 06/16/2024 , Expires: 06/16/2025 Start: 06-16-2024 End: 06-16-2025 CBC W Auto Differential panel - Blood CBC and Auto Differential Lab Routine Rheumatoid arthritis with rheumatoid factor of multiple sites without organ or systems involvement (Multi) Expected: 06/16/2024, Expires: 06/16/2025 [facility] Work Phone: Comment on above: Expected: 06/16/2024 , Expires: 06/16/2025 Start: 06-16-2024 End: 06-16-2025 Comprehensive metabolic 2000 panel - Serum or Plasma Comprehensive Metabolic Panel Lab Routine Rheumatoid arthritis with rheumatoid factor of multiple sites without organ or systems involvement (Multi) Expected: 06/16/2024, Expires: 06/16/[address] [facility] Work Phone: Comment on above: Expected: 06/16/2024 , Expires: 06/16/2025 Start: 06-16-2024 End: 06-16-2025 Erythrocyte sedimentation rate Sedimentation Rate Lab Routine Rheumatoid arthritis with rheumatoid factor of multiple sites without organ or systems involvement (Multi) Expected: 06/16/2024, Expires: 06/16/[address] [facility] Work Phone: Comment on above: Expected: 06/16/2024 , Expires: 06/16/2025 Start: 06-16-2024 End: 06-16-2024 Patient encounter procedure 06/16/2024 8:30 AM EST Office Visit [facility] [address] [place] [address] Sidney Beckham MD [address] [place] [address] [facility] Start: 02-14-2024 End: 02-13-2025 C reactive protein [Mass/volume] in Serum or Plasma C-Reactive Protein Lab Routine Rheumatoid arthritis with rheumatoid factor of multiple sites without organ or systems involvement (Multi) Expected: 02/14/2024, Expires: 02/13/[address] [facility] Work Phone: Comment on above: Expected: 02/14/2024 , Expires: 02/13/2025 Start: 02-14-2024 End: 02-13-2025 CBC W Auto Differential panel - Blood CBC and Auto Differential Lab Routine Rheumatoid arthritis with rheumatoid factor of multiple sites without organ or systems involvement (Multi) Expected: 02/14/2024, Expires: 02/13/2025 [facility] Work Phone: Comment on above: Expected: 02/14/2024 , Expires: 02/13/2025 Start: 02-14-2024 End: 02-13-2025 Comprehensive metabolic 2000 panel - Serum or Plasma Comprehensive Metabolic Panel Lab Routine Rheumatoid arthritis with rheumatoid factor of multiple sites without organ or systems involvement (Multi) Expected: 02/14/2024, Expires: 02/13/[address] [facility] Work Phone: Comment on above: Expected: 02/14/2024 , Expires: 02/13/2025 Start: 02-14-2024 End: 02-13-2025 Erythrocyte sedimentation rate Sedimentation Rate Lab Routine Rheumatoid arthritis with rheumatoid factor of multiple sites without organ or systems involvement (Multi) Expected: 02/14/2024, Expires: 02/13/[address] [facility] Work Phone: Comment on above: Expected: 02/14/2024 , Expires: 02/13/2025 Start: 02-14-2024 End: 02-14-2024 Patient encounter procedure 02/14/2024 7:30 AM EDT Office Visit [address] [place] [address] Sidney Beckham MD [facility] [facility] [address] [place] [address] [facility] Start: 02-06-2024 Lipid panel Lipid Panel [facility] Start: 12-16-2023 Influenza vaccination Influenza Vacc ine (#1) [facility] Start: 09-24-2023 End: 09-23-2024 C reactive protein [Mass/volume] in Serum or Plasma C-Reactive Protein Lab Routine Rheumatoid arthritis with rheumatoid factor of multiple sites without organ or systems involvement (Multi) Expected: 09/24/2023, Expires: 09/23/[address] [facility] Work Phone: Comment on above: Expected: 09/24/2023 , Expires: 09/23/2024 Start: 09-24-2023 End: 09-23-2024 CBC W Auto Differential panel - Blood CBC and Auto Differential Lab Routine Rheumatoid arthritis with rheumatoid factor of multiple sites without organ or systems involvement (Multi) Expected: 09/24/2023, Expires: 09/23/2024 [facility] Work Phone: Comment on above: Expected: 09/24/2023 , Expires: 09/23/2024 Start: 09-24-2023 End: 09-23-2024 Comprehensive metabolic 2000 panel - Serum or Plasma Comprehensive Metabolic Panel Lab Routine Rheumatoid arthritis with rheumatoid factor of multiple sites without organ or systems involvement (Multi) Expected: 09/24/2023, Expires: 09/23/[address] [facility] Work Phone: Comment on above: Expected: 09/24/2023 , Expires: 09/23/2024 Start: 09-24-2023 End: 09-23-2024 Erythrocyte sedimentation rate Sedimentation Rate Lab Routine Rheumatoid arthritis with rheumatoid factor of multiple sites without organ or systems involvement (Multi) Expected: 09/24/2023, Expires: 09/23/[address] [facility] Work Phone: Comment on above: Expected: 09/24/2023 , Expires: 09/23/2024 Start: 02-26-2023 FUV, Provider: Sidney Beckham, Status: Pen, Time: 8:30 AM FUV, Provider: Sidney Beckham, Status: Pen, Time: 8:30 AM [facility]: Start: 12-15-2022 COVID-19 Vaccine ( season) COVID-19 Vaccine () [facility] Start: 05-08-2022 FUV, Provider: Sidney Beckham, Status: Pen, Time: 8:30 AM FUV, Provider: Sidney Beckham, Status: Pen, Time: 8:30 AM [facility] Work [facility]: Start: 09-30-2021 FUV, Provider: Sidney Beckham, Status: Pen, Time: 7:30 AM FUV, Provider: Sidney Beckham, Status: Pen, Time: 7:30 AM [facility] Work Phone: Start: 05-27-2021 FUV, Provider: Sidney Beckham, Status: Pen, Time: 8:00 AM FUV, Provider: Sidney Beckham, Status: Pen, Time: 8:00 AM [facility] Work [facility]: Start: 01-21-2021 FUV, Provider: Sidney Beckham, Status: Pen, Time: 8:30 AM FUV, Provider: Sidney Beckham, Status: Pen, Time: 8:30 AM [facility] Work Phone: Start: 11-07-2018 Yearly Adult [facility] Start: 06-24-2017 Pneumococcal vaccination Pneum ococcal Vaccine (1 of 1 - PCV) [facility] Start: 06-24-2017 Zoster Vaccines (1 of 2) Zoste r Vaccines (1 of 2) [facility] Start: 06-24-1986 Hepatitis B Vaccines (1 of 3 - 19+ 3-dose series) Hepatitis B Vaccines (1 of 3 - 19+ 3-dose series) [facility] Start: 06-24-1985 Diabetes mellitus screening Diabetes Screening [facility] Start: 06-24-1985 Hepatitis C screening Hepatitis C Sc reening [facility] Start: 1967 HIV screening HIV Screening [facility] Start: 1967 Screening for malign ant neoplasm of colon [facility] Start: 1967 Yearly Adult Physical Yearly Adult P hysical [facility] Immunizations Immunization Date Immunization Notes Care Provider Fa mc 03-06-2023 influenza, injectabl e, quadrivalent, preservative free Sidney Beckham MD Work Phone: [facility] Work Phone: 03-06-2023 influenza virus vaccine, unspecified formulation Sidney Beckham MD Work Phone: [facility] Work Phone: 01-22-2018 influenza, injectabl e, quadrivalent, preservative free Sidney Beckham MD [facility] Work Phone: Comment on above: Series: 02-02-2015 influenza virus vaccine, unspecified formulation Malissa Dickey Work Phone: [facility] Work Phone: 01-28-2015 tetanus toxoid, reduced diphtheria toxoid, and acellular pertussis vaccine, adsorbed Malissa Dickey Work Phone: [facility] Work Phone: 04-16-2010 tuberculin skin test ; purified protein derivative solution, intradermal Sidney Beckham MD [facility] Work Phone: Comment on above: Series: Payers Date Payer Category Payer Managed Care (Private) [employer] [facility] [id number] 2023 Private Health Insurance [employer] [facility] [employer] [id number] 2023-Present [id number] [place] [id number] 2023 Private Health Insurance [id number] 2021 Self-pay [id number] 2021 Private Health Insurance [id number] 1967 Unknown [id number]. [id number] 1967 Unknown [id number]. 2.356 1967 Unknown [id number]. [id number] 1967 Unknown [id number]. [id number] 1967 Unknown [id number]. [id number] Unknown [employer] Unknown [id number]. 2.462 Unknown [id number]. 2.462 Unknown [id number]. 2.462 Unknown [id number]. 2.462 Unknown [id number]. 2.462 Unknown [id number]. 2.462 Unknown [id number]. 2.462 Unknown [id number]. 2.462 Unknown [id number]. 2.462 Unknown [id number]. [id number] Unknown [id number]. 2.462 Social History Date Type Detail Facility Start: 09-23-2023 End: 06-16-2024 [facility] Work Phone: Start: 07-07-2021 Tobacco smoking status [facility] Unknown if ever smoked [facility] Work Phone: Start: 12-28-2017 Cigarettes [facility] Work Phone: Start: 1965 Sex Assigned At Male [facility] Work Phone: Start: 09-23-2023 End: 02-14-2024 Tobacco smoking status NHIS Ex-smoker [facility] Work Phone: End: 04-16-2016 History of tobacco use Current smoker [facility] Work Phone: End: 04-16-2016 History of tobacco use Cigarette Smoker [facility] Work Phone: Start: 09-23-2023 End: 02-14-2024 Tobacco use and exposure Smokeless tobacco non-user [facility] Work Phone: Start: 09-24-2023 End: 10-27-2024 Alcoholic beverage intake Current drinker of alcohol (finding) [facility] Work Phone: Start: 09-23-2023 End: 06-16-2024 Tobacco use panel [facility] Work Phone: Start: 1965 Sex assigned at Not on file [facility] Work Phone: Start: 09-14-2023 End: 06-16-2024 Exposure to SARS-CoV-2 (event) Not sure [facility] Work Phone: Start: 02-14-2024 Alcohol Comment Socially [facility] Work Phone: NEGATED: Highlighted row - - [facility] Work Phone: Goals Date Patient Goal Desired Activity /State Functional Status Date Assessment Result Facility 10-27-2024 Patient Health Questionnaire 2 item (PHQ-2) [Reported] [facility] NEGATED: Highlighted row Functional performance Functional status health issues are not documented Disease [facility] Work Phone: Mental Status Date Assessment Result Facility NEGATED: Highlighted row Cognitive function [Interpretation] Cognitive status health issues are not documented Disease [facility] Work Phone: Clinical Notes 01-24-2021 to 10-27-2024 Assessment & Plan Note - Sidney Beckham MD - 10/27/2024 8:30 AM EDTAssessment & Plan Note - Sidney Beckham MD - 10/27/2024 8:30 AM Dimitry Beckham MD - 10/27/2024 8:30 AM EDT Note Date & Type Note Facility 10-27-2024 Evaluation + Plan note Associated Problem(s): Rheumatoid arthritis with rheumatoid factor of multiple sites without organ or systems involvement (Multi) On xeljanz therapy. Stable on treatment. Has an unrelated neck strain--advised heat and massage No signs of arthritis progression on exam. Patient to continue medications for relief of symptoms and will continue to monitor usage and monitor for any untoward effects. Encourage mobility and exercise to help range of motion with joints. A healthy diet to maintain ideal weight helps overall joint pain. Labs ordered today to monitor for increased disease activity, end organ manifestations and to monitor for any drug toxicities due to chronic medications Orders: Follow Up In Rheumatology; Future CBC and Auto Differential; Future Comprehensive Metabolic Panel; Future C-Reactive Protein; Future Sedimentation Rate; Future Follow Up In Rheumatology Xeljanz XR 11 mg tablet extended release 24 hr; Take 1 tablet (11 mg) by mouth once daily. [facility] Work Phone: 10-27-2024 Evaluation + Plan note Associated Problem(s): Long-term current use of tofacitinib Pt is on immunosuppressive medication to control disease. No signs of worrisome infections since last seen No signs of leukopenia that would increase risk. Recommend that vaccinations be kept up to date to minimize risk Orders: Follow Up In Rheumatology; Future Follow Up In Rheumatology T [facility] Work Phone: 10-27-2024 History of Present illness Narrative Images from the original note were not included. [facility] RHEUMATOLOGY PROGRESS NOTE Marva Turner Domo 59 y.o. male : 1965 PCP: Malissa Dickey MD Chief Complaint Patient presents with Rheumatoid Arthritis SUBJECTIVE Pt has been stable with regard to his RA. Has developed some neck pain. No known injury. 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 HENT: Negative. Eyes: Negative. Respiratory: Negative for cough and shortness of breath. Cardiovascular: Negative for leg swelling. Gastrointestinal: Negative. Endocrine: Negative. Genitourinary: Negative. Musculoskeletal: Positive for arthralgias and neck pain. Negative for back pain, gait problem, joint swelling and myalgias. Skin: Negative for color change and rash. Neurological: Negative for weakness and numbness. Psychiatric/Behavioral: Negative. PHYSICAL EXAM BP (!) 157/91 Pulse 74 Temp 36.4 C (97.5 F) Ht 1.854 m (6' 1) Wt 97 kg (213 lb 12.8 oz) SpO2 96% BMI 28.21 kg/m Depression: Not at risk (10/27/2024) PHQ-2 PHQ-2 Score: 0 Physical Exam Vitals reviewed. Constitutional: General: He is not in acute distress. Appearance: Normal appearance. HENT: Head: Normocephalic and atraumatic. Eyes: General: No scleral icterus. Extraocular Movements: Extraocular movements intact. Conjunctiva/sclera: Conjunctivae normal. Pupils: Pupils are equal, round, and reactive to light. Pulmonary: Effort: Pulmonary effort is normal. No respiratory distress. Musculoskeletal: General: No swelling, tenderness or deformity. Normal range of motion. Cervical back: Normal range of motion and neck supple. No tenderness. Right lower leg: No edema. Left lower leg: No edema. Comments: No synovitis noted on exam Paraspinal muscle tenderness of neck noted Contracture of L 5th DIP Skin: Findings: No bruising or rash. Comments: Tattoo on L hand Neurological: General: No focal deficit present. Mental Status: He is alert and oriented to person, place, and time. Mental status is at baseline. Gait: Gait normal. Psychiatric: Mood and Affect: Mood normal. Health Maintenance Topic Date Due HIV Screening Never done Colorectal Cancer Screening Never done Diabetes Screening Never done Hepatitis B Vaccines (1 of 3 - 19+ 3-dose series) Never done Pneumococcal Vaccine (1 of 1 - PCV) Never done Zoster Vaccines (1 of 2) Never done Yearly Adult Physical 11/07/2018 Influenza Vaccine (1) 12/15/2024 Lipid Panel 08/06/2029 DTaP/Tdap/Td Vaccines (3 - Td or Tdap) 05/06/2034 HPV Vaccines (No Doses Required) Completed Hepatitis C Screening Addressed HIB Vaccines Aged Out IPV Vaccines Aged Out Hepatitis A Vaccines Aged Out Meningococcal Vaccine Aged Out Rotavirus Vaccines Aged Out MMR Vaccines Discontinued COVID-19 Vaccine Discontinued Assessment/plan Assessment & Plan Rheumatoid arthritis with rheumatoid factor of multiple sites without organ or systems involvement (Multi) On xeljanz therapy. Stable on treatment. Has an unrelated neck strain--advised heat and massage No signs of arthritis progression on exam. Patient to continue medications for relief of symptoms and will continue to monitor usage and monitor for any untoward effects. Encourage mobility and exercise to help range of motion with joints. A healthy diet to maintain ideal weight helps overall joint pain. Labs ordered today to monitor for increased disease activity, end organ manifestations and to monitor for any drug toxicities due to chronic medications Orders: Follow Up In Rheumatology; Future CBC and Auto Differential; Future Comprehensive Metabolic Panel; Future C-Reactive Protein; Future Sedimentation Rate; Future Follow Up In Rheumatology Xeljanz XR 11 mg tablet extended release 24 hr; Take 1 tablet (11 mg) by mouth once daily. Long-term current use of tofacitinib Pt is on immunosuppressive medication to control disease. No signs of worrisome infections since last seen No signs of leukopenia that would increase risk. 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 90 tablet 3 [DISCONTINUED] rosuvastatin (Crestor) 5 mg tablet Take 1 tablet (5 mg) by mouth once daily at bedtime. (Patient not taking: Reported on 10/27/2024) No current facility-administered medications on file prior to visit. [3] No Known Allergies [4] Social History Tobacco Use Smoking status: Former Current packs/day: 0.00 Types: Cigarettes Quit date: 2016 Years since quittin.5 Smokeless tobacco: Never Vaping Use Vaping status: Never Used Substance Use Topics Alcohol use: Yes Comment: Socially Drug use: Never documented in this encounter [facility] Work Phone: 10-27-2024 Instructions Sidney Beckham MD - 10/27/2024 8:30 AM EDT It was a pleasure to see you today Please call if your symptoms worsen Please review your summary for education and reminders. Follow up at your next appointment. If you had labs/xrays done today, you will be able to view on [employer]. We will contact you when the results are reviewed for further discussion. Please note that you may receive your results before I have had a chance to review. Please know I will be contacting you for discussion Homegoing instructions for all patient A healthy lifestyle helps chronic diseases These are all the goals you should strive to improve your overall health Blood pressure <130/85 BMI of <30 or waist circumference that is 1/2 of your height Fasting blood sugar <107 (if you are diabetic, aim for an A1c <6.4%_ LDL cholesterol <130 Avoid smoking Manage your stress Get your preventive exams Get your immunizations What else for RA? Any type of exercise is better than nothing. Whether you do cardio, walking, lift weights or yoga, all can help in improving physical function. Occupational and physical therapy can improve physical function and decrease pain by providing tools and techniques to improve your day. We can do a referral if you haven't seen one yet Braces and splints for affected joints can also help If your gait is affected, strongly recommend assistive devices like canes or walkers. We don't want to risk injuries from falls. Can Diet help? Consider the Mediterranean diet There are some foods that are considered inflammatory Look up anti-inflammatory diets for a list of foods to avoid. No dietary supplements help unfortunately. Work on getting to a normal weight/BMI. This will lessen the stress on your joints. What else? Acupuncture Massage therapy Apply heat to affected joints We do not recommend director medicare sales as it has not been shown to help in RA. If you smoke, stop (From [facility] guidelines for exercise, rehab and diet in RA) documented in this encounter [facility] Work Phone: 10-27-2024 Miscellaneous Notes Associated Problem(s): Rheumatoid arthritis with rheumatoid factor of multiple sites without organ or systems involvement (Multi) On xeljanz therapy. Stable on treatment. Has an unrelated neck strain--advised heat and massage No signs of arthritis progression on exam. Patient to continue medications for relief of symptoms and will continue to monitor usage and monitor for any untoward effects. Encourage mobility and exercise to help range of motion with joints. A healthy diet to maintain ideal weight helps overall joint pain. Labs ordered today to monitor for increased disease activity, end organ manifestations and to monitor for any drug toxicities due to chronic medications Orders: Follow Up In Rheumatology; Future CBC and Auto Differential; Future Comprehensive Metabolic Panel; Future C-Reactive Protein; Future Sedimentation Rate; Future Follow Up In Rheumatology Xeljanz XR 11 mg tablet extended release 24 hr; Take 1 tablet (11 mg) by mouth once daily. Associated Problem(s): Long-term current use of tofacitinib Pt is on immunosuppressive medication to control disease. No signs of worrisome infections since last seen No signs of leukopenia that would increase risk. Recommend that vaccinations be kept up to date to minimize risk Orders: Follow Up In Rheumatology; Future Follow Up In Rheumatology documented in this encounter [facility] Work Phone: 06-16-2024 Evaluation + Plan note Associated Problem(s): Rheumatoid arthritis with rheumatoid factor of multiple sites without organ or systems involvement (Multi) On xeljanz. Increased symptoms recently but no synovitis. Labs ordered today to monitor for increased disease activity, end organ manifestations and to monitor for any drug toxicities due to chronic medications Orders: CBC and Auto Differential; Future Comprehensive Metabolic Panel; Future C-Reactive Protein; Future Sedimentation Rate; Future Follow Up In Rheumatology; Future [facility] Work Phone: 06-16-2024 Evaluation + Plan note Associated Problem(s): Long-term current use of tofacitinib No side effects Orders: Follow Up In Rheumatology; Future [facility] Work Phone: 06-16-2024 History of Present illness Narrative Images from the original note were not included. [facility]AT[facility] RHEUMATOLOGY PROGRESS NOTE Marva Luu 58 y.o. male : 1965 PCP: Malissa Dickey MD Chief Complaint Patient presents with Rheumatoid Arthritis SUBJECTIVE Pt reports he is feeling ok but did have a lot more stiffness and achiness through this winter. Had to call off a couple of times. Even sitting in his truck would make him stiff. No swelling. Pt hopes things will settle down with improved weather. Records since last seen reviewed in [facility], [facility] Record Patient Active Problem List Diagnosis Date Noted Cervical spondylosis 09/23/2023 Spondylosis without myelopathy or radiculopathy, lumbar region 09/23/2023 Long-term current use of tofacitinib 09/23/2023 Rheumatoid arthritis with rheumatoid factor of multiple sites without organ or systems involvement (Multi) 09/23/2023 Trigger little finger of right hand 09/23/2023 Past Medical History: Diagnosis Date Consumes 2 to 3 servings of caffeine per day COVID-19 vaccine series declined Dry eye syndrome 05/08/2016 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 Xeljanz XR 11 mg tablet extended release 24 hr Take 1 tablet (11 mg) by mouth once daily. 90 tablet 3 No current facility-administered medications on file prior to visit. No Known Allergies Social History Tobacco Use Smoking status: Former Current packs/day: 0.00 Types: Cigarettes Quit date: 2017 Years since quittin.1 Smokeless tobacco: Never Vaping Use Vaping status: Never Used Substance Use Topics Alcohol use: Yes Comment: Socially Drug use: Never Review of Systems Constitutional: Negative for fatigue and fever. HENT: Negative. Eyes: Negative. Respiratory: Negative for cough and shortness of breath. Cardiovascular: Negative for leg swelling. Gastrointestinal: Negative. Endocrine: Negative. Genitourinary: Negative. Musculoskeletal: Positive for arthralgias. Negative for back pain, gait problem, joint swelling and myalgias. Skin: Negative for color change and rash. Neurological: Negative for weakness and numbness. Psychiatric/Behavioral: Negative. PHYSICAL EXAM BP 129/88 Pulse 81 Temp 36.5 C (97.7 F) (Temporal) Ht 1.829 m (6') Wt 97.1 kg (214 lb 1.6 oz) SpO2 98% BMI 29.04 kg/m Depression: Not at risk (06/16/2024) PHQ-2 PHQ-2 Score: 0 Physical Exam Vitals reviewed. Constitutional: General: He is not in acute distress. Appearance: Normal appearance. HENT: Head: Normocephalic and atraumatic. Eyes: General: No scleral icterus. Extraocular Movements: Extraocular movements intact. Conjunctiva/sclera: Conjunctivae normal. Pupils: Pupils are equal, round, and reactive to light. Pulmonary: Effort: Pulmonary effort is normal. No respiratory distress. Musculoskeletal: General: No swelling, tenderness or deformity. Normal range of motion. Cervical back: Normal range of motion and neck supple. No tenderness. Right lower leg: No edema. Left lower leg: No edema. Comments: No synovitis noted on exam Difficulty fully extending fingers of R hand and decreased hand cake wringer Skin: Findings: No bruising or rash. Comments: Tattoo on L hand Neurological: General: No focal deficit present. Mental Status: He is alert and oriented to person, place, and time. Mental status is at baseline. Gait: Gait normal. Psychiatric: Mood and Affect: Mood normal. Health Maintenance Due Topic Date Due Yearly Adult Physical Never done HIV Screening Never done Colorectal Cancer Screening Never done Diabetes Screening Never done Hepatitis B Vaccines (1 of 3 - 19+ 3-dose series) Never done Pneumococcal Vaccine (1 of 1 - PCV) Never done Zoster Vaccines (1 of 2) Never done Influenza Vaccine (1) 12/16/2023 Lipid Panel 02/06/2024 Assessment/plan Assessment & Plan Rheumatoid arthritis with rheumatoid factor of multiple sites without organ or systems involvement (Multi) On xeljanz. Increased symptoms recently but no synovitis. Labs ordered today to monitor for increased disease activity, end organ manifestations and to monitor for any drug toxicities due to chronic medications Orders: CBC and Auto Differential; Future Comprehensive Metabolic Panel; Future C-Reactive Protein; Future Sedimentation Rate; Future Follow Up In Rheumatology; Future Long-term current use of tofacitinib No side effects Orders: Follow Up In Rheumatology; Future Follow up: ___4__months, sooner if change in symptoms Immunization History Administered Date(s) Administered Flu vaccine (IIV4), preservative free *Check age/dose* 01/22/2018, 03/06/2023 Influenza, Unspecified 02/02/2015 PPD Test 04/16/2010 Tdap vaccine, age 7 year and older (BOOSTRIX, ADACEL) 01/28/2015 documented in this encounter [facility] Work Phone: 06-16-2024 Instructions Sidney Beckham MD - 06/16/2024 8:30 AM EST It was a pleasure to see you today Please call if your symptoms worsen Please review your summary for education and reminders. Follow up at your next appointment. If you had labs/xrays done today, you will be able to view on [employer]. We will contact you when the results are reviewed for further discussion. Please note that you may receive your results before I have had a chance to review. Please know I will be contacting you for discussion Homegoing instructions for all patient A healthy lifestyle helps chronic diseases These are all the goals you should strive to improve your overall health Blood pressure <130/85 BMI of <30 or waist circumference that is 1/2 of your height Fasting blood sugar <107 (if you are diabetic, aim for an A1c <6.4%_ LDL cholesterol <130 Avoid smoking Manage your stress Get your preventive exams Get your immunizations What else for RA? Any type of exercise is better than nothing. Whether you do cardio, walking, lift weights or yoga, all can help in improving physical function. Occupational and physical therapy can improve physical function and decrease pain by providing tools and techniques to improve your day. We can do a referral if you haven't seen one yet Braces and splints for affected joints can also help If your gait is affected, strongly recommend assistive devices like canes or walkers. We don't want to risk injuries from falls. Can Diet help? Consider the Mediterranean diet There are some foods that are considered inflammatory Look up anti-inflammatory diets for a list of foods to avoid. No dietary supplements help unfortunately. Work on getting to a normal weight/BMI. This will lessen the stress on your joints. What else? Acupuncture Massage therapy Apply heat to affected joints We do not recommend director medicare sales as it has not been shown to help in RA. If you smoke, stop (From guidelines for exercise, rehab and diet in RA) documented in this encounter [facility] Work Phone: 06-16-2024 Miscellaneous Notes Associated Problem(s): Rheumatoid arthritis with rheumatoid factor of multiple sites without organ or systems involvement (Multi) On xeljanz. Increased symptoms recently but no synovitis. Labs ordered today to monitor for increased disease activity, end organ manifestations and to monitor for any drug toxicities due to chronic medications Orders: CBC and Auto Differential; Future Comprehensive Metabolic Panel; Future C-Reactive Protein; Future Sedimentation Rate; Future Follow Up In Rheumatology; Future Associated Problem(s): Long-term current use of tofacitinib No side effects Orders: Follow Up In Rheumatology; Future documented in this encounter [facility] Work Phone: 02-14-2024 Evaluation + Plan note Associated Problem(s): Rheumatoid arthritis with rheumatoid factor of multiple sites without organ or systems involvement (Multi) On xeljanz. Meets remission criteria. Continue meds. Labs ordered today to monitor for increased disease activity, end organ manifestations and to monitor for any drug toxicities due to chronic medications Orders: CBC and Auto Differential; Future Comprehensive Metabolic Panel; Future C-Reactive Protein; Future Sedimentation Rate; Future [facility] Work Phone: 02-14-2024 Evaluation + Plan note Associated Problem(s): Long-term current use of tofacitinib [facility] Work Phone: 02-14-2024 History of Present illness Narrative Images from the original note were not included. [facility] RHEUMATOLOGY PROGRESS NOTE Marva Johnny Luu 58 y.o. male Chief Complaint Patient presents with Follow-up Rheumatoid Arthritis SUBJECTIVE Doing well on xeljanz. Was off med for 12 days while awaiting insurance re-approval. Used CBD temporarily which helped. Back on med now No pain, no swelling Records since last seen reviewed in [facility], [facility] Record Patient Active Problem List Diagnosis Date Noted Cervical spondylosis 09/23/2023 Spondylosis without myelopathy or radiculopathy, lumbar region 09/23/2023 Long-term current use of tofacitinib 09/23/2023 Rheumatoid arthritis with rheumatoid factor of multiple sites without organ or systems involvement (Multi) 09/23/2023 Trigger little finger of right hand 09/23/2023 Past Medical History: Diagnosis Date Consumes 2 to 3 servings of caffeine per day COVID-19 vaccine series declined Dry eye syndrome 05/08/2016 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 90 tablet 3 No current facility-administered medications on file prior to visit. No Known Allergies Social History Tobacco Use Smoking status: Former Current packs/day: 0.00 Types: Cigarettes Quit date: 2016 Years since quittin.8 Smokeless tobacco: Never Vaping Use Vaping status: Never Used Substance Use Topics Alcohol use: Yes Comment: Socially Drug use: Never Review of Systems Constitutional: Negative for fatigue and fever. Respiratory: Negative for cough and shortness of breath. Cardiovascular: Negative for leg swelling. Musculoskeletal: Positive for arthralgias. Negative for back pain, gait problem, joint swelling and myalgias. Skin: Negative for color change and rash. Neurological: Negative for weakness and numbness. PHYSICAL EXAM BP 130/80 Pulse 66 Temp 36.5 C (97.7 F) (Temporal) Ht 1.829 m (6') Wt 96.1 kg (211 lb 12.8 oz) SpO2 99% BMI 28.73 kg/m Depression: Not at risk (02/14/2024) PHQ-2 PHQ-2 Score: 0 Physical Exam Vitals reviewed. Constitutional: General: He is not in acute distress. Appearance: Normal appearance. HENT: Head: Normocephalic and atraumatic. Eyes: General: No scleral icterus. Extraocular Movements: Extraocular movements intact. Conjunctiva/sclera: Conjunctivae normal. Pupils: Pupils are equal, round, and reactive to light. Pulmonary: Effort: Pulmonary effort is normal. No respiratory distress. Musculoskeletal: General: No swelling, tenderness or deformity. Normal range of motion. Cervical back: Normal range of motion and neck supple. No tenderness. Right lower leg: No edema. Left lower leg: No edema. Comments: No synovitis noted on exam Difficulty fully extending fingers of R hand and decreased hand cake wringer Skin: Findings: No bruising or rash. Neurological: General: No focal deficit present. Mental Status: He is alert and oriented to person, place, and time. Mental status is at baseline. Gait: Gait normal. Psychiatric: Mood and Affect: Mood normal. unchanged Health Maintenance Due Topic Date Due Yearly Adult Physical Never done HIV Screening Never done Colorectal Cancer Screening Never done Diabetes Screening Never done Hepatitis B Vaccines (1 of 3 - 19+ 3-dose series) Never done Zoster Vaccines (1 of 2) Never done Influenza Vaccine (1) 12/16/2023 Lipid Panel 02/06/2024 Assessment/plan Assessment & Plan Rheumatoid arthritis with rheumatoid factor of multiple sites without organ or systems involvement (Multi) On xeljanz. Meets remission criteria. Continue meds. Labs ordered today to monitor for increased disease activity, end organ manifestations and to monitor for any drug toxicities due to chronic medications Orders: CBC and Auto Differential; Future Comprehensive Metabolic Panel; Future C-Reactive Protein; Future Sedimentation Rate; Future Long-term current use of tofacitinib Follow up: __4___months Immunization History Administered Date(s) Administered Flu vaccine (IIV4), preservative free *Check age/dose* 01/22/2018, 03/06/2023 Influenza, Unspecified 02/02/2015 PPD Test 04/16/2010 Tdap vaccine, age 7 year and older (BOOSTRIX, ADACEL) 01/28/2015 documented in this encounter [facility] Work Phone: 02-14-2024 Instructions Sidney Beckham MD - 02/14/2024 7:30 AM EDT It was a pleasure to see you today Please call if your symptoms worsen Please review your summary for education and reminders. Follow up at your next appointment. If you had labs/xrays done today, you will be able to view on [employer]. We will contact you when the results are reviewed for further discussion. Please note that you may receive your results before I have had a chance to review. Please know I will be contacting you for discussion Homegoing instructions for all patient A healthy lifestyle helps chronic diseases These are all the goals you should strive to improve your overall health Blood pressure <130/85 BMI of <30 or waist circumference that is 1/2 of your height Fasting blood sugar <107 (if you are diabetic, aim for an A1c <6.4%_ LDL cholesterol <130 Avoid smoking Manage your stress Get your preventive exams Get your immunizations documented in this encounter [facility] Work Phone: 02-14-2024 Miscellaneous Notes Associated Problem(s): Rheumatoid arthritis with rheumatoid factor of multiple sites without organ or systems involvement (Multi) On xeljanz. Meets remission criteria. Continue meds. Labs ordered today to monitor for increased disease activity, end organ manifestations and to monitor for any drug toxicities due to chronic medications Orders: CBC and Auto Differential; Future Comprehensive Metabolic Panel; Future C-Reactive Protein; Future Sedimentation Rate; Future Associated Problem(s): Long-term current use of tofacitinib documented in this encounter [facility] Work Phone: 09-24-2023 Evaluation + Plan note Associated Problem(s): Rheumatoid arthritis with rheumatoid factor of multiple sites without organ or systems involvement (Multi) Doing well on medication without any signs of disease progression. Does have some ligament damage in R hand--unchanged. Pt able to compensate for it. Pt to continue med Labs ordered today to monitor for increased disease activity, end organ manifestations and to monitor for any drug toxicities due to chronic medications [facility] Work Phone: 09-24-2023 Miscellaneous Notes Associated Problem(s): Rheumatoid arthritis with rheumatoid factor of multiple sites without organ or systems involvement (Multi) Doing well on medication without any signs of disease progression. Does have some ligament damage in R hand--unchanged. Pt able to compensate for it. Pt to continue med Labs ordered today to monitor for increased disease activity, end organ manifestations and to monitor for any drug toxicities due to chronic medications documented in this encounter [facility] Work Phone: 09-24-2023 History of Present illness Narrative Images from the original note were not included. [facility] RHEUM[facility]IC[facility] RHEUMATOLOGY PROGRESS NOTE Marva Luu 58 y.o. male Chief Complaint Patient presents with Arthritis SUBJECTIVE Pt reports he is dong well. Minimal pain. Continues to have weakness in his cake wringer in her Right hand which is unchanged. No new areas of pain. No side effects with medication Records since last seen reviewed in [facility], [facility] Record Patient Active Problem List Diagnosis Date Noted Cervical spondylosis 09/23/2023 Spondylosis without myelopathy or radiculopathy, lumbar region 09/23/2023 Long-term current use of tofacitinib 09/23/2023 Rheumatoid arthritis with rheumatoid factor of multiple sites without organ or systems involvement (Multi) 09/23/2023 Trigger little finger of right hand 09/23/2023 Past Medical History: Diagnosis Date Consumes 2 to 3 servings of caffeine per day Dry eye syndrome 05/08/2016 Felty's syndrome (Multi) 12/14/2011 Hepatitis C infection 12/14/2011 Rheumatoid nodule, unspecified site (Multi) 01/04/2022 Rheumatoid nodules Unspecified cataract Cataracts, bilateral Current Outpatient Medications Medication Instructions Xeljanz XR 11 mg, oral, Daily No Known Allergies Review of Systems Constitutional: Negative for fatigue and fever. Respiratory: Negative for cough and shortness of breath. Cardiovascular: Negative for leg swelling. Musculoskeletal: Positive for arthralgias. Negative for back pain, gait problem, joint swelling and myalgias. Skin: Negative for color change and rash. Neurological: Negative for weakness and numbness. Social History Tobacco Use Smoking status: Former Types: Cigarettes Smokeless tobacco: Never Substance Use Topics Alcohol use: Yes PHYSICAL EXAM BP 141/84 Pulse 73 Temp 36.5 C (97.7 F) Ht 1.854 m (6' 1) Wt 91.5 kg (201 lb 12.8 oz) SpO2 97% BMI 26.62 kg/m Physical Exam Vitals reviewed. Constitutional: General: He is not in acute distress. Appearance: Normal appearance. HENT: Head: Normocephalic and atraumatic. Eyes: General: No scleral icterus. Extraocular Movements: Extraocular movements intact. Conjunctiva/sclera: Conjunctivae normal. Pupils: Pupils are equal, round, and reactive to light. Pulmonary: Effort: Pulmonary effort is normal. No respiratory distress. Musculoskeletal: General: No swelling, tenderness or deformity. Normal range of motion. Cervical back: Normal range of motion and neck supple. No tenderness. Right lower leg: No edema. Left lower leg: No edema. Comments: No synovitis noted on exam Difficulty fully extending fingers of R hand and decreased hand cake wringer Skin: Findings: No bruising or rash. Neurological: General: No focal deficit present. Mental Status: He is alert and oriented to person, place, and time. Mental status is at baseline. Gait: Gait normal. Psychiatric: Mood and Affect: Mood normal. Health Maintenance Due Topic Date Due Yearly Adult Physical Never done HIV Screening Never done Colorectal Cancer Screening Never done Hepatitis C Screening Never done Diabetes Screening Never done Hepatitis B Vaccines (1 of 3 - 19+ 3-dose series) Never done Zoster Vaccines (1 of 2) Never done COVID-19 Vaccine ( season) Never done Assessment/plan Problem List Items Addressed This Visit Long-term current use of tofacitinib Rheumatoid arthritis with rheumatoid factor of multiple sites without organ or systems involvement (Multi) - Primary Overview Previous ophelia ríos Current: xeljanz Current Assessment & Plan Doing well on medication without any signs of disease progression. Does have some ligament damage in R hand--unchanged. Pt able to compensate for it. Pt to continue med Labs ordered today to monitor for increased disease activity, end organ manifestations and to monitor for any drug toxicities due to chronic medications Relevant Medications Xeljanz XR 11 mg tablet extended release 24 hr Other Relevant Orders CBC and Auto Differential Comprehensive Metabolic Panel C-Reactive Protein Sedimentation Rate Follow up: __4___months documented in this encounter [facility] Work Phone: 09-24-2023 Instructions Sidney Beckham MD - 09/24/2023 2:30 PM EDT It was a pleasure to see you today Please call if your symptoms worsen Please review your summary for education and reminders. Follow up at your next appointment. If you had labs/xrays done today, you will be able to view on [employer]. We will contact you when the results are reviewed for further discussion. Please note that you may receive your results before I have had a chance to review. Please know I will be contacting you for discussion Homegoing instructions for all patient A healthy lifestyle helps chronic diseases These are all the goals you should strive to improve your overall health Blood pressure <130/85 BMI of <30 or waist circumference that is 1/2 of your height Fasting blood sugar <107 (if you are diabetic, aim for an A1c <6.4%_ LDL cholesterol <130 Avoid smoking Manage your stress Get your preventive exams Get your immunizations What else for RA? Any type of exercise is better than nothing. Whether you do cardio, walking, lift weights or yoga, all can help in improving physical function. Occupational and physical therapy can improve physical function and decrease pain by providing tools and techniques to improve your day. We can do a referral if you haven't seen one yet Braces and splints for affected joints can also help If your gait is affected, strongly recommend assistive devices like canes or walkers. We don't want to risk injuries from falls. Can Diet help? Consider the Mediterranean diet There are some foods that are considered inflammatory Look up anti-inflammatory diets for a list of foods to avoid. No dietary supplements help unfortunately. Work on getting to a normal weight/BMI. This will lessen the stress on your joints. What else? Acupuncture Massage therapy Apply heat to affected joints We do not recommend director medicare sales as it has not been shown to help in RA. If you smoke, stop (From CR guidelines for exercise, rehab and diet in RA) documented in this encounter [facility] Work Phone: 05-20-2021 History of Present illness Narrative Interval Events: doing well. Has some hand stiffness with snow plowing last week but otherwise doing well with med. Still has not needed to take prednisone.Symptoms: Systemically the patient has skin involvement and positive rheumatoid factor testing.Activities: no limitations.Medications: the patient is adherent with his medication regimen.Additional History: Dx in 2006. Failed MTX and humira (loss of efficacy), enbrel (rituxan not approved by insurance). [facility] Work Phone: 01-24-2021 History of Present illness Narrative Interval Events: doing well. Patient has minimal pain. He only has morning stiffness when it is rainy weather. Otherwise he is doing well and doing all activities without difficulty.Symptoms: Systemically the patient has skin involvement and positive rheumatoid factor testing.Activities: no limitations.Medications: the patient is adherent with his medication regimen.Additional History: Dx in 2006. Failed MTX and humira (loss of efficacy), enbrel (rituxan not approved by insurance). [facility] Work Phone: Evaluation note No assessment inform ation available [facility] Work Phone: Evaluation note Diagnosis Rheumatoid arthritis with rheumatoid factor of multiple sites without organ or systems involvement (Multi)- Primary Long-term current use of tofacitinib documented in this encounter [facility] Work Phone: Evaluation note* Diagnosis Rheumatoid arthritis with rheumatoid factor of multiple sites without organ or systems involvement (Multi)- Primary Long-term current use of tofacitinib Rheumatoid arthritis with rheumatoid factor of multiple sites without organ or systems involvement (Multi)- Primary Long-term current use of tofacitinib documented in this encounter [facility] Work Phone: Evaluation note* Diagnosis Rheumatoid arthritis with rheumatoid factor of multiple sites without organ or systems involvement (Multi)- Primary Long-term current use of tofacitinib Rheumatoid arthritis with rheumatoid factor of multiple sites without organ or systems involvement (Multi)- Primary Long-term current use of tofacitinib Rheumatoid arthritis with rheumatoid factor of multiple sites without organ or systems involvement (Multi)- Primary Long-term current use of tofacitinib documented in this encounter [facility] Work Phone: Evaluation note* Diagnosis Rheumatoid arthritis with rheumatoid factor of multiple sites without organ or systems involvement (Multi)- Primary Long-term current use of tofacitinib Rheumatoid arthritis with rheumatoid factor of multiple sites without organ or systems involvement (Multi)- Primary Long-term current use of tofacitinib Rheumatoid arthritis with rheumatoid factor of multiple sites without organ or systems involvement (Multi)- Primary Long-term current use of tofacitinib Rheumatoid arthritis with rheumatoid factor of multiple sites without organ or systems involvement (Multi)- Primary Long-term current use of tofacitinib documented in this encounter [facility] Work Phone: History of Present illness Narrative* Interval Events: continues to do well. Has chronic problem with making a fist with R hand but otherwise no other symptoms. * Symptoms: Systemically the patient has skin involvement and positive rheumatoid factor testing. * Activities: no limitations. * Medications: the patient is adherent with his medication regimen. * Additional History: Dx in 2006. Failed MTX and humira (loss of efficacy), enbrel (rituxan not approved by insurance). [facility] Work Phone: History of Present illness Narrative* Interval Events: doing well. Just has issues with R hand with locking but otherwise, no pain and nothing is affecting his ability to work. No flares in >3 years. Pt feels well. No new areas of involvement. * Symptoms: Systemically the patient has skin involvement and positive rheumatoid factor testing. * Activities: no limitations. * Medications: the patient is adherent with his medication regimen. * Additional History: Dx in 2006. Failed MTX and humira (loss of efficacy), enbrel (rituxan not approved by insurance). [facility] Work Phone: Instructions* Name Dates Details Instructions not documented [employer] [facility] Work Phone: Summary Purpose Family History No Family History Records Found natural daughter Name Dates Details Family history of rheumatoid arthritis(V17.7, Z82.61) Status:Active Mother Name Dates Details Family history of No signifi cant active problems Status:Active Father Name Dates Details Family history of No signifi cant active problems Status:Active Unknown Family Member Name Dates Details No significant active proble ms: Mother, Father Status:Active Family history of rheumatoid arthritis: Daughter(V17.7, Z82.61) Status:Active Unknown Family Member Name Dates Details No significant active proble ms: Mother, Father Status:Active Family history of rheumatoid arthritis: Daughter(V17.7, Z82.61) Status:Active Unknown Family Member Name Dates Details No significant active proble ms: Mother, Father Status:Active Family history of rheumatoid arthritis: Daughter(V17.7, Z82.61) Status:Active Unknown Family Member Name Dates Details No significant active proble ms: Mother, Father Status:Active Family history of rheumatoid arthritis: Daughter(V17.7, Z82.61) Status:Active Unknown Family Member Name Dates Details No significant active proble ms: Mother, Father Status:Active Family history of rheumatoid arthritis: Daughter(V17.7, Z82.61) Status:Active Unknown Family Member Name Dates Details No significant active proble ms: Mother, Father Status:Active Family history of rheumatoid arthritis: Daughter(V17.7, Z82.61) Status:Active Unknown Family Member Name Dates Details No significant active proble ms: Mother, Father Status:Active Family history of rheumatoid arthritis: Daughter(V17.7, Z82.61) Status:Active Unknown Family Member Name Dates Details No significant active proble ms: Mother, Father Status:Active Family history of rheumatoid arthritis: Daughter(V17.7, Z82.61) Status:Active Unknown Family Member Name Dates Details No significant active proble ms: Mother, Father Status:Active Family history of rheumatoid arthritis: Daughter(V17.7, Z82.61) Status:Active Unknown Family Member Name Dates Details No significant active proble ms: Mother, Father Status:Active Family history of rheumatoid arthritis: Daughter(V17.7, Z82.61) Status:Active Unknown Family Member Name Dates Details No significant active proble ms: Mother, Father Status:Active Family history of rheumatoid arthritis: Daughter(V17.7, Z82.61) Status:Active Unknown Family Member Name Dates Details No significant active proble ms: Mother, Father Status:Active Family history of rheumatoid arthritis: Daughter(V17.7, Z82.61) Status:Active Unknown Family Member Name Dates Details No significant active proble ms: Mother, Father Status:Active Family history of rheumatoid arthritis: Daughter(V17.7, Z82.61) Status:Active Unknown Family Member Name Dates Details No significant active proble ms: Mother, Father Status:Active Family history of rheumatoid arthritis: Daughter(V17.7, Z82.61) Status:Active Unknown Family Member Name Dates Details No significant active proble ms: Mother, Father Status:Active Family history of rheumatoid arthritis: Daughter(V17.7, Z82.61) Status:Active Unknown Family Member Name Dates Details No significant active proble ms: Mother, Father Status:Active Family history of rheumatoid arthritis: Daughter(V17.7, Z82.61) Status:Active Advance Directives No Advanced Directives Records Found Advance Directive Response Recorded Date/ Time Living Will No December 28, 2017 1:34pm Power of Lsat Instructor No December 1:34pm Chief Complaint RA 4 month F/URA 4 month F/URA follow-uphere for follow up RA Additional Source Comments (unrecognized sect ion and content) No Status Records FoundNo Status Records FoundNo Status Records FoundNo Status Records FoundNo Status Records FoundNo Status Records FoundNo Status Records FoundNo Status Records Found INFORMATION SOURCE (unrecogn ized section and content) DATE CREATED AUTHOR 11/06/2017 [facility] DATE CREATED AUTHOR AUTHOR'S ORGANIZ ATION 09/15/2019 [facility] ([place]) DATE CREATED AUTHOR AUTHOR'S ORGANIZ ATION 04/16/2022 [facility] DATE CREATED AUTHOR AUTHOR'S ORGANIZ ATION 10/28/2022 [facility] DATE CREATED AUTHOR AUTHOR'S ORGANIZ ATION 10/28/2022 [employer] DATE CREATED AUTHOR AUTHOR'S ORGANIZ ATION 10/30/2024 [facility] DATE CREATED AUTHOR AUTHOR'S ORGANIZ ATION 11/01/2024 [facility] DATE CREATED AUTHOR AUTHOR'S ORGANIZ ATION 02/26/2025 [facility] Reason for Visit (unrecogniz ed section and content) Reason Comments Arthritis Reason Comments Follow-up Rheumatoid Arthritis Reason Comments Rheumatoid Arthritis Specialty Diagnoses / Procedures Referred By Contac t Referred To Contact Rheumatology Diagnoses Rheumatoid arthritis with rheumatoid factor of multiple sites without organ or systems involvement (Multi) Long-term current use of tofacitinib Procedures Follow Up In Rheumatology Sidney Beckham MD [address] [address] Phone: tel: fax: Referral ID Status Reason Start Date Expiration Date V isits Requested Visits Authorized [id number] Authorized 06/16/2024 06/16/2025 1 1 Care Teams (unrecognized sec tion and content) 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 Start Date End Date Malissa Dickey MD [address] [facility] [address] [place] [address] PCP - General Family Medicine 09/24/23 Sidney Beckham MD [address] [place] [phone] Referring Physician Rheumatology 09/23/23 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 Start Date End Date Malissa Dickey MD [address] [place] [address] [address] PCP - General Family Medicine 09/24/23 Sidney Beckham MD [address] [place] [id number] Referring Physician Rheumatology 09/23/23 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 Start Date End Date Malissa Dickey MD Kai Restrepo [place] [address] [address] PCP - General Family Medicine 09/24/23 Sidney Beckham MD [address] [place] [id number] Referring Physician Rheumatology 09/23/23 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 This clinical summary was aggregated from multiple sources. Caution should be exercised in using it in the provision of clinical care. This summary normalizes information from multiple sources, and as a consequence, information in this document may materially change the coding, format and clinical context of patient data. In addition, data may be omitted in some cases. CLINICAL DECISIONS SHOULD BE BASED ON THE PRIMARY CLINICAL RECORDS. [facility] [facility]. provides no warranty or guarantee of the accuracy or completeness of information in this document.
== END | disposition home or self-care (01) ==
LOC: CT 06:16
PROVIDERS: PCP Family Medicine; Referring Provider Family Medicine; Visit Provider Family Medicine
DX: Z12.2 Encounter for screening for malignant neoplasm of respiratory organs (principal); F17.211 Nicotine dependence, cigarettes, in remission
CPT/HCPCS: 71271